=== PATIENT | female | born 1940 | race Caucasian/White ===

== ENCOUNTER → 2018-07-18 10:33 | Outpatient (CLI) | payer MEDICARE, SELFPAY ==
--- NOTE | 2018-07-18 | DI.MG.S_ITS ---
BILATERAL DIGITAL SCREENING MAMMOGRAM 3D/2D WITH CAD: 07/18/2018 CLINICAL: Routine screening. Family history of breast cancer. Comparison is made to exams dated: 05/09/2017 mammogram - [facility] and 10/13/2014 mammogram - [facility]. The tissue of both breasts is extremely dense, which lowers the sensitivity of mammography. Current study was also evaluated with a Computer Aided Detection (CAD) system. There are benign calcifications in both breasts. No significant masses, calcifications, or other findings are seen in either breast. There has been no significant interval change. IMPRESSION: There is no mammographic evidence of malignancy. A 1 year screening mammogram is recommended. This exam was interpreted at Station ID: [id number]. NOTE: For mammograms, a report in lay terms will be sent to the patient. Approximately 15% of breast malignancies will not be visualized mammographically. In the management of a palpable breast mass, a negative mammogram must not discourage biopsy of a clinically suspicious lesion. Electronically Signed By: Wayne [email or web address]:07/18/2018 21:42:01 letter sent: Normal Exam ACR BI-RADS Category 2: Benign Finding(s) 3342F
== END ==
PROVIDERS: Family Provider Internal Medicine; PCP Internal Medicine; Visit Provider Internal Medicine
DX: Z12.31 Encounter for screening mammogram for malignant neoplasm of breast (principal); Z80.3 Family history of malignant neoplasm of breast
CPT/HCPCS: 77063; 77067

== ENCOUNTER 2018-08-09 16:41 | Emergency (ER) | payer MEDICARE, SELFPAY ==
[2018-08-09 16:48] VITALS: BP 150/99; PULSE 83; RESP 20; TEMP 36.6; O2SAT 96; BMI 20.2
--- NOTE | 2018-08-09 17:02 | PC.NURSE ---
pt experienced a feeling of air in chest at approx 1430. Pts sx have subsided upon arrival to ED. Pts sx lasted only 10 minutes.
--- NOTE | 2018-08-09 17:05 | ED.SOB ---
HPI - SOB/Dyspnea <TIFFANIE Foy - Last Filed: 08/09/18 22:30> General Chief Complaint: Shortness of Breath/Dyspnea Stated Complaint: SOB Time Seen by Provider: 08/09/18 17:05 Source: patient Mode of arrival: ambulatory Limitations: no limitations History of Present Illness 78-year-old female with history of anxiety depression that is a nonsmoker for complaint of shortness of breath that lasted for approximately 8-10 minutes earlier today. She states that she it caused pain and a sensation of shortness of breath when she was trying to take a deep breath for this short period. She denies any nausea vomiting. No diaphoresis. She denies any stressors or relievers of her symptoms. She states the symptoms have really resolved. She no longer has any chest pain. No shortness of breath at this time. She is no acute distress she is able speak full sentences. She denies any other c if concerns or complaints at this timeframe. Related Data Previous Rx's Medication Instructions Recorded ciprofloxacin HCl [Cipro] 500 mg PO BID 3 Days #0 tab 04/16/17 Allergies Allergy/AdvReac Type Severity Reaction Status Date / Time Sulfa (Sulfonamide Allergy Unknown RASH Unverified 10/24/17 12:33 Antibiotics) [SULFA (SULFONAMIDE ANTIBIOTICS)] Review of Systems <TIFFANIE Foy - Last Filed: 08/09/18 22:30> Constitutional Denies chills, Denies fatigue, Denies fever(s), Denies lethargy and Denies weakness Eyes Denies change in vision, Denies eye discharge, Denies irritation and Denies loss of vision ENT Ears, Nose, Mouth, and Throat: Denies change in voice, Denies neck pain, Denies sore throat and Denies throat swelling Cardiovascular Reports chest pain and Reports dyspnea Respiratory Reports dyspnea and Denies wheezing Gastrointestinal Gastrointestinal: Denies abdominal pain, Denies change in bowel habits, Denies diarrhea, Denies nausea and Denies vomiting Genitourinary Denies hematuria, Denies flank pain, Denies urinary incontinence and Denies urinary urgency Musculoskeletal Denies neck pain Integumentary/Breasts Denies pruritus, Denies erythema, Denies rash and Denies wounds Neurologic Denies confusion, Denies loss of vision and Denies weakness Psychiatric Denies anxiety, Denies confusion, Denies depression, Denies homicidal ideation and Denies suicidal ideation Endocrine Denies fatigue and Denies flushing Hematologic/Lymphatic Denies easy bruising Allergic/Immunologic Denies urticaria, Denies throat swelling and Denies wheezing Exam <TIFFANIE Foy - Last Filed: 08/09/18 22:30> Initial Vital Signs Initial Vital Signs: Vital Signs Temperature 97.9 F 08/09/18 16:48 Pulse Rate 83 08/09/18 16:48 Respiratory Rate 20 08/09/18 16:48 Blood Pressure 150/99 H 08/09/18 16:48 Pulse Oximetry 96 08/09/18 16:48 Const General: cooperative and well developed Nutritional Appearance: well nourished Orientation: alert, awake, oriented x3 and not confused HENIN Mouth: oral mucosae normal and mucous membranes abnormal Eyes Conjunctivae: conjunctivae normal Sclera: sclerae normal Pupils: PERRL EOM: EOM intact bilaterally Chest Chest: normal inspection of the chest Resp Effort & Inspection: normal respiratory effort, able to speak in complete sentences, no respiratory distress and no use of accessory muscles Auscultation: clear to auscultation bilaterally, no rales, no rhonchi and no wheezes Cardio Rate: regular rate Rhythm: regular rhythm Heart Sounds: no click, no gallops, no murmurs and no rubs Pulses: normal peripheral pulses Skin General: no rashes or lesions noted, No jaundice and No petechiae Neuro General: alert, oriented x3, gait normal and no focal motor deficits Speech: speech normal <Amy Alvarez DO - Last Filed: 08/09/18 23:55> Initial Vital Signs Initial Vital Signs: Vital Signs Temperature 97.9 F 08/09/18 16:48 Pulse Rate 83 08/09/18 16:48 Respiratory Rate 20 08/09/18 16:48 Blood Pressure 150/99 H 08/09/18 16:48 Pulse Oximetry 96 08/09/18 16:48 Scores <TIFFANIE Foy - Last Filed: 08/09/18 22:30> HEART Score Heart Score history: Slightly Suspicious Heart Score EKG: Normal Heart Score Age: > or = 65 years old Heart Score risk factors: 1-2 risk factors Heart Score troponin: < or = to normal limit Heart Score Total: 3 Course <TIFFANIE Foy Last Filed: 08/09/18 22:30> Orders Ordered: ED Orders 08/09/18 17:16 CT angio chest PE protocol Stat 08/09/18 17:30 Complete Blood Count AUTO DIFF Stat Comprehensive Metabolic Panel Stat Troponin & CK Cardiac Panel Stat 08/09/18 19:42 Troponin I Stat Vital Signs - 8 hr 08/09/18 16:48 08/09/18 17:10 08/09/18 18:30 Temperature 97.9 F Pulse Rate 83 79 73 Respiratory Rate 20 13 15 Blood Pressure 150/99 H Blood Pressure [Left Arm] 177/101 H 136/80 Pulse Oximetry 96 100 97 08/09/18 19:30 08/09/18 20:48 Temperature Pulse Rate 79 60 Respiratory Rate 8 L Blood Pressure 143/81 H Blood Pressure [Left Arm] 143/81 H Pulse Oximetry 95 99 <Amy Alvarez DO - Last Filed: 08/09/18 23:55> Orders Ordered: ED Orders 08/09/18 17:16 CT angio chest PE protocol Stat 08/09/18 17:30 Complete Blood Count AUTO DIFF Stat Comprehensive Metabolic Panel Stat Troponin & CK Cardiac Panel Stat 08/09/18 19:42 Troponin I Stat Vital Signs - 8 hr 08/09/18 16:48 08/09/18 17:10 08/09/18 18:30 Temperature 97.9 F Pulse Rate 83 79 73 Respiratory Rate 20 13 15 Blood Pressure 150/99 H Blood Pressure [Left Arm] 177/101 H 136/80 Pulse Oximetry 96 100 97 08/09/18 19:30 08/09/18 20:48 Temperature Pulse Rate 79 60 Respiratory Rate 8 L Blood Pressure 143/81 H Blood Pressure [Left Arm] 143/81 H Pulse Oximetry 95 99 MDM - SOB/Dyspnea <TIFFANIE Foy - Last Filed: 08/09/18 22:30> Lab Data Result diagrams: 08/09/18 17:30 08/09/18 17:30 Lab Results 08/09/18 08/09/18 08/09/18 Range/Units 17:30 17:30 19:42 WBC 5.6 (4.5-11.0) X10^3/uL RBC 3.60 L (4.0-5.2) X10^6/uL Hgb 11.7 L (12.0-16.0) g/dL Hct 35.0 L (36-46) % MCV 97.3 (80-100) fL MCH 32.5 (26-34) PG MCHC 33.4 (30-36) % RDW 12.8 (11.6-14.8) % Plt Count 228 (150-400) X10^3/uL Neut % (Auto) 60.7 (50-75) % Lymph % (Auto) 26.6 (25-40) % Charles % (Auto) 10.1 (3-14) % Eos % (Auto) 1.6 L (2-4) % Baso % (Auto) 1.0 (0-2) % Neut # (Auto) 3400 (4108-7701) /uL Lymph # (Auto) 1500 (5340-9117) /uL Charles # (Auto) 600 (0-900) /uL Eos # (Auto) 100 (0-450) /uL Baso # (Auto) 100 (0-100) /uL Sodium 137 (137-145) mmol/L Potassium 3.4 (3.4-5.1) mmol/L Chloride 96 L (98-107) mmol/L Carbon Dioxide 33 H (22-32) mmol/L BUN 21 H (7-17) mg/dL Creatinine 1.00 (0.52-1.04) mg/dL Estimated GFR 53.3 L (>60) mL/min BUN/Creatinine Ratio 21.0 (6-22) Glucose 100 (80-110) mg/dL Calcium 9.4 (8.4-10.2) mg/dL Total Bilirubin 0.7 (0.2-1.3) mg/dL AST 29 (14-36) IU/L ALT 17 (9-52) IU/L Alkaline Phosphatase 47 (38-126) U/L Total Creatine Kinase 66 (30-135) U/L CK-MB (CK-2) TNP CK-MB (CK-2) Rel Index TNP Troponin I 0.012 0.015 (0.01-0.034) ng/mL Total Protein 7.8 (6.3-8.2) g/dL Albumin 4.4 (3.5-5.0) g/dL Globulin 3.4 (1.7-4.1) g/dL Albumin/Globulin Ratio 1.3 (1.0-2.8) Imaging Data CT scan - chest: Radiologist's impression: [address] [place] [id number] Scan Report Signed Patient: Donna Alves BMR#: [id number] : 8Acct:[id number] Age/Sex: 78 / FDate of Service: 08/09/18 Loc: ED Accession Number: [id number] Procedure: CT angio chest PE protocol Ordering Provider: Desmond Garcia PROCEDURE: CT ANGIO CHEST PE PROTOCOL INDICATIONS: Shortness of breath and chest pain earlier today TECHNIQUE: After the administration of intravenous contrast, 2 mm thick sections acquired from the pulmonary apices to the posterior costophrenic angles. 3-dimensional maximum intensity projection (MIP) coronal and sagittal reformats were then acquired through the thorax. For radiation dose reduction, the following was used: automated exposure control, adjustment of mA and/or kV according to patient size. COMPARISON: None. FINDINGS: Image quality: Excellent. Pulmonary arteries: Pulmonary arteries are normal in size, and demonstrate no intraluminal filling defects to suggest central pulmonary embolism. Lungs and pleura: There is a 4 mm in the right middle lobe. No pleural effusions or pneumothorax. Central and peripheral airways are patent. There is a small diaphragmatic hernia in the posterior left hemidiaphragm. Mediastinum: Heart size is normal, without pericardial effusion. No mediastinal or hilar adenopathy. Mild ectasia of the ascending thoracic aorta measuring up to 4.0 cm. The descending thoracic aorta is tortuous. Thoracic aorta demonstrates normal enhancement. Esophagus is dilated and filled with fluid. Bones and chest wall: There is scoliosis and severe degenerative changes in thoracic spine. There is spinal fusion in lumbar spine. No suspicious bony lesions. Ribs and thoracic spine appear intact throughout. Thyroid gland is normal. No axillary or supraclavicular adenopathy. Abdomen: Visualized upper abdominal solid organs appear normal in the early arterial phase of enhancement. IMPRESSION: 1. No evidence for pulmonary embolism. 2. Distended esophagus filled with fluid. The gastroesophageal junction appears thickened. Recommend upper endoscopy for further evaluation. 3. Left hemidiaphragmatic hernia. 4. Scoliosis with degenerative and post surgical changes. 5. A 4 mm right middle lobe nodule. Please see enclosed followup recommendation. Fleischner Society criteria for SOLID lung nodule followup. Nodule size (mm)Low-risk patientHigh-risk patient?4No follow-up neededFollow-up at 12 mo; if no change, no further follow-up>[id number] CT at 12 mo; if no change, no further follow-up needed.Initial follow-up CT at 6-12 mo, then 18-24 mo if no change. >6-8Initial follow-up CT at 6-12 mo, then 18-24 mo if no change. Initial follow-up CT at 3-6 mo, then 9-12 mo and 24 mo if no change. >8Follow-up CT at 3, 9, 24 mo. Or PET and/or biopsy.Same as for low-risk pts. Dictated by: Harsha Barbosa M.D. on 08/09/2018 at 19:19 Approved by: Harsha Barbosa M.D. on 08/09/2018 at 19:31 ECG Data Interpretation: EKG shows normal sinus rhythm no ST elevation or depression. No ectopy. Ventricular rate is 75. Pr interval of 198. QRS duration is 77. QTC of 387. MDM Narrative Medical decision making narrative: EKG shows sinus rhythm with no ST elevation or depression. No ectopy. Two sets of cardiac enzymes were obtained were unremarkable. CBC and Chem panel was obtained was unremarkable. PE protocol CT of the chest was obtained and was negative for PE. Incidental finding of a distended esophagus is also filled with fluid is seen. Will have her follow up with primary care provider for referral for endoscopy. Differential between whether not esophageal findings/spasm or anxiety caused her symptoms. Follow up primary care provider next few days for re-evaluation. For any worsening symptoms return to the emergency room. <Amy Alvarez, DO - Last Filed: 08/09/18 23:55> Lab Data Lab Results 08/09/18 08/09/18 08/09/18 Range/Units 17:30 17:30 19:42 WBC 5.6 (4.5-11.0) X10^3/uL RBC 3.60 L (4.0-5.2) X10^6/uL Hgb 11.7 L (12.0-16.0) g/dL Hct 35.0 L (36-46) % MCV 97.3 (80-100) fL MCH 32.5 (26-34) PG MCHC 33.4 (30-36) % RDW 12.8 (11.6-14.8) % Plt Count 228 (150-400) X10^3/uL Neut % (Auto) 60.7 (50-75) % Lymph % (Auto) 26.6 (25-40) % Charles % (Auto) 10.1 (3-14) % Eos % (Auto) 1.6 L (2-4) % Baso % (Auto) 1.0 (0-2) % Neut # (Auto) 3400 (4909-2382) /uL Lymph # (Auto) 1500 (4508-4234) /uL Charles # (Auto) 600 (0-900) /uL Eos # (Auto) 100 (0-450) /uL Baso # (Auto) 100 (0-100) /uL Sodium 137 (137-145) mmol/L Potassium 3.4 (3.4-5.1) mmol/L Chloride 96 L (98-107) mmol/L Carbon Dioxide 33 H (22-32) mmol/L BUN 21 H (7-17) mg/dL Creatinine 1.00 (0.52-1.04) mg/dL Estimated GFR 53.3 L (>60) mL/min BUN/Creatinine Ratio 21.0 (6-22) Glucose 100 (80-110) mg/dL Calcium 9.4 (8.4-10.2) mg/dL Total Bilirubin 0.7 (0.2-1.3) mg/dL AST 29 (14-36) IU/L ALT 17 (9-52) IU/L Alkaline Phosphatase 47 (38-126) U/L Total Creatine Kinase 66 (30-135) U/L CK-MB (CK-2) TNP CK-MB (CK-2) Rel Index TNP Troponin I 0.012 0.015 (0.01-0.034) ng/mL Total Protein 7.8 (6.3-8.2) g/dL Albumin 4.4 (3.5-5.0) g/dL Globulin 3.4 (1.7-4.1) g/dL Albumin/Globulin Ratio 1.3 (1.0-2.8) Discharge Plan Departure Patient Disposition: Home Clinical Impression: Chest pain Discharge Date/Time: 08/09/18 20:49 Interventions: ED Discharge Assessment Last Done: 08/09/18 20:48 Instructions: DI for Atypical Chest Pain Activity Restrictions/Additional Instructions: EKG today was unremarkable. Laboratory results were normal. CT of the chest was obtained and shows some distention to this often gets and some fluid. Also there is a a 4 mm nodule seen to the right lung. Recommend follow up with primary care for supervision and repeat CT and approximately 12 months for further evaluation. Recommend a follow-up with primary care for the next few days for re-evaluation and referral for endoscopy for further evaluation of the esophagus. No other acute findings are found. Prescriptions: No Action ciprofloxacin HCl [Cipro] 500 MG tablet 500 mg PO BID 3 Days Qty: 0 RF: 0 Referrals: Abilio Marie MD [Primary Care Provider] - <Amy Alvarez DO - Last Filed: 08/09/18 23:55> Cosign ED Attending Cosignature Attestation: I was immediately available in the department for consultation, discussed patient needs close follow up for EGD and further evaluation. This documentation has been reviewed and I agree with assessment and plan. Supervised by Amy Alvarez DO
[2018-08-09 17:10] VITALS: BP 177/101; PULSE 79; RESP 13; O2SAT 100
--- NOTE | 2018-08-09 17:16 | DI.CT.S_ITS ---
PROCEDURE: CT ANGIO CHEST PE PROTOCOL INDICATIONS: Shortness of breath and chest pain earlier today TECHNIQUE: After the administration of intravenous contrast, 2 mm thick sections acquired from the pulmonary apices to the posterior costophrenic angles. 3-dimensional maximum intensity projection (MIP) coronal and sagittal reformats were then acquired through the thorax. For radiation dose reduction, the following was used: automated exposure control, adjustment of mA and/or kV according to patient size. COMPARISON: None. FINDINGS: Image quality: Excellent. Pulmonary arteries: Pulmonary arteries are normal in size, and demonstrate no intraluminal filling defects to suggest central pulmonary embolism. Lungs and pleura: There is a 4 mm in the right middle lobe. No pleural effusions or pneumothorax. Central and peripheral airways are patent. There is a small diaphragmatic hernia in the posterior left hemidiaphragm. Mediastinum: Heart size is normal, without pericardial effusion. No mediastinal or hilar adenopathy. Mild ectasia of the ascending thoracic aorta measuring up to 4.0 cm. The descending thoracic aorta is tortuous. Thoracic aorta demonstrates normal enhancement. Esophagus is dilated and filled with fluid. Bones and chest wall: There is scoliosis and severe degenerative changes in thoracic spine. There is spinal fusion in lumbar spine. No suspicious bony lesions. Ribs and thoracic spine appear intact throughout. Thyroid gland is normal. No axillary or supraclavicular adenopathy. Abdomen: Visualized upper abdominal solid organs appear normal in the early arterial phase of enhancement. IMPRESSION: 1. No evidence for pulmonary embolism. 2. Distended esophagus filled with fluid. The gastroesophageal junction appears thickened. Recommend upper endoscopy for further evaluation. 3. Left hemidiaphragmatic hernia. 4. Scoliosis with degenerative and post surgical changes. 5. A 4 mm right middle lobe nodule. Please see enclosed followup recommendation. Fleischner Society criteria for SOLID lung nodule followup. Nodule size (mm)Low-risk patientHigh-risk patient?4No follow-up neededFollow-up at 12 mo; if no change, no further follow-up>[id number] CT at 12 mo; if no change, no further follow-up needed.Initial follow-up CT at 6-12 mo, then 18-24 mo if no change. >6-8Initial follow-up CT at 6-12 mo, then 18-24 mo if no change. Initial follow-up CT at 3-6 mo, then 9-12 mo and 24 mo if no change. >8Follow-up CT at 3, 9, 24 mo. Or PET and/or biopsy.Same as for low-risk pts. Dictated by: Harsha Barbosa M.D. on 08/09/2018 at 19:19 Approved by: Harsha Barbosa M.D. on 08/09/2018 at 19:31
[2018-08-09 17:44] LABS: Add Manual Diff / Slide Review NO; Basophils Absolute Auto 100 /uL (0-100); Eosinophils Absolute Auto 100 /uL (0-450); Eosinophils Percent Auto 1.6 % (2-4); Hemoglobin 11.7 g/dL (12.0-16.0); Lymphocytes Absolute Auto 1500 /uL (1100-4500); Lymphocytes Percent Auto 26.6 % (25-40); Mean Corpuscular HGB Conc 33.4 % (30-36); Mean Corpuscular Hemoglobin 32.5 PG (26-34); Mean Corpuscular Volume 97.3 fL (80-100); Monocytes Absolute Auto 600 /uL (0-900); Monocytes Percent Auto 10.1 % (3-14); Neutrophils Absolute Auto 3400 /uL (1500-7000); Neutrophils Percent Auto 60.7 % (50-75); Platelet Count 228 X10^3/uL (150-400); Red Cell Distribution Width 12.8 % (11.6-14.8); White Blood Cell Count 5.6 X10^3/uL (4.5-11.0)
[2018-08-09 17:59] LABS: Alanine Aminotransferase 17 IU/L (9-52); Albumin 4.4 g/dL (3.5-5.0); Albumin Globulin Ratio 1.3 (1.0-2.8); Alkaline Phosphatase 47 U/L (38-126); Aspartate Aminotransferase 29 IU/L (14-36); Bilirubin Total 0.7 mg/dL (0.2-1.3); Blood Urea Nitrogen 21 mg/dL (7-17); Calcium 9.4 mg/dL (8.4-10.2); Carbon Dioxide 33 mmol/L (22-32); Chloride 96 mmol/L (98-107); Creatine Kinase 66 U/L (30-135); Estimated Glomerular Filt Rate 53.3 mL/min (>60); Globulin 3.4 g/dL (1.7-4.1); Glucose 100 mg/dL (80-110); HEMOLYSIS < 15 (0-50); Potassium 3.4 mmol/L (3.4-5.1); Sodium 137 mmol/L (137-145); Total Protein 7.8 g/dL (6.3-8.2)
[2018-08-09 18:11] LABS: Troponin I 0.012 ng/mL (0.01-0.034)
[2018-08-09 18:30] VITALS: BP 136/80; PULSE 73; RESP 15; O2SAT 97
[2018-08-09 19:30] VITALS: BP 143/81; PULSE 79; RESP 8; O2SAT 95
[2018-08-09 20:09] LABS: Troponin I 0.015 ng/mL (0.01-0.034)
--- NOTE | 2018-08-09 20:28 | ED_ITS ---
HPI - SOB/Dyspnea <TIFFANIE Foy - Last Filed: 08/09/18 22:30> General Chief Complaint: Shortness of Breath/Dyspnea Stated Complaint: SOB Time Seen by Provider: 08/09/18 17:05 Source: patient Mode of arrival: ambulatory Limitations: no limitations History of Present Illness 78-year-old female with history of anxiety depression that is a nonsmoker for complaint of shortness of breath that lasted for approximately 8-10 minutes earlier today. She states that she it caused pain and a sensation of shortness of breath when she was trying to take a deep breath for this short period. She denies any nausea vomiting. No diaphoresis. She denies any stressors or relievers of her symptoms. She states the symptoms have really resolved. She no longer has any chest pain. No shortness of breath at this time. She is no acute distress she is able speak full sentences. She denies any other c if concerns or complaints at this timeframe. Related Data Previous Rx's Medication Instructions Recorded ciprofloxacin HCl [Cipro] 500 mg PO BID 3 Days #0 tab 04/16/17 Allergies Allergy/AdvReac Type Severity Reaction Status Date / Time Sulfa (Sulfonamide Allergy Unknown RASH Unverified 10/24/17 12:33 Antibiotics) [SULFA (SULFONAMIDE ANTIBIOTICS)] Review of Systems <TIFFANIE Foy - Last Filed: 08/09/18 22:30> Constitutional Denies chills, Denies fatigue, Denies fever(s), Denies lethargy and Denies weakness Eyes Denies change in vision, Denies eye discharge, Denies irritation and Denies loss of vision ENT Ears, Nose, Mouth, and Throat: Denies change in voice, Denies neck pain, Denies sore throat and Denies throat swelling Cardiovascular Reports chest pain and Reports dyspnea Respiratory Reports dyspnea and Denies wheezing Gastrointestinal Gastrointestinal: Denies abdominal pain, Denies change in bowel habits, Denies diarrhea, Denies nausea and Denies vomiting Genitourinary Denies hematuria, Denies flank pain, Denies urinary incontinence and Denies urinary urgency Musculoskeletal Denies neck pain Integumentary/Breasts Denies pruritus, Denies erythema, Denies rash and Denies wounds Neurologic Denies confusion, Denies loss of vision and Denies weakness Psychiatric Denies anxiety, Denies confusion, Denies depression, Denies homicidal ideation and Denies suicidal ideation Endocrine Denies fatigue and Denies flushing Hematologic/Lymphatic Denies easy bruising Allergic/Immunologic Denies urticaria, Denies throat swelling and Denies wheezing Exam <TIFFANIE Foy - Last Filed: 08/09/18 22:30> Initial Vital Signs Initial Vital Signs: Vital Signs Temperature 97.9 F 08/09/18 16:48 Pulse Rate 83 08/09/18 16:48 Respiratory Rate 20 08/09/18 16:48 Blood Pressure 150/99 H 08/09/18 16:48 Pulse Oximetry 96 08/09/18 16:48 Const General: cooperative and well developed Nutritional Appearance: well nourished Orientation: alert, awake, oriented x3 and not confused HENTN Mouth: oral mucosae normal and mucous membranes abnormal Eyes Conjunctivae: conjunctivae normal Sclera: sclerae normal Pupils: PERRL EOM: EOM intact bilaterally Chest Chest: normal inspection of the chest Resp Effort & Inspection: normal respiratory effort, able to speak in complete sentences, no respiratory distress and no use of accessory muscles Auscultation: clear to auscultation bilaterally, no rales, no rhonchi and no wheezes Cardio Rate: regular rate Rhythm: regular rhythm Heart Sounds: no click, no gallops, no murmurs and no rubs Pulses: normal peripheral pulses Skin General: no rashes or lesions noted, No jaundice and No petechiae Neuro General: alert, oriented x3, gait normal and no focal motor deficits Speech: speech normal <Amy Alvarez DO - Last Filed: 08/09/18 23:55> Initial Vital Signs Initial Vital Signs: Vital Signs Temperature 97.9 F 08/09/18 16:48 Pulse Rate 83 08/09/18 16:48 Respiratory Rate 20 08/09/18 16:48 Blood Pressure 150/99 H 08/09/18 16:48 Pulse Oximetry 96 08/09/18 16:48 Scores <TIFFANIE Foy - Last Filed: 08/09/18 22:30> HEART Score Heart Score history: Slightly Suspicious Heart Score EKG: Normal Heart Score Age: > or = 65 years old Heart Score risk factors: 1-2 risk factors Heart Score troponin: < or = to normal limit Heart Score Total: 3 Course <TIFFANIE Foy Last Filed: 08/09/18 22:30> Orders Ordered: ED Orders 08/09/18 17:16 CT angio chest PE protocol Stat 08/09/18 17:30 Complete Blood Count AUTO DIFF Stat Comprehensive Metabolic Panel Stat Troponin & CK Cardiac Panel Stat 08/09/18 19:42 Troponin I Stat Vital Signs - 8 hr 08/09/18 16:48 08/09/18 17:10 08/09/18 18:30 Temperature 97.9 F Pulse Rate 83 79 73 Respiratory Rate 20 13 15 Blood Pressure 150/99 H Blood Pressure [Left Arm] 177/101 H 136/80 Pulse Oximetry 96 100 97 08/09/18 19:30 08/09/18 20:48 Temperature Pulse Rate 79 60 Respiratory Rate 8 L Blood Pressure 143/81 H Blood Pressure [Left Arm] 143/81 H Pulse Oximetry 95 99 <Amy Alvarez DO - Last Filed: 08/09/18 23:55> Orders Ordered: ED Orders 08/09/18 17:16 CT angio chest PE protocol Stat 08/09/18 17:30 Complete Blood Count AUTO DIFF Stat Comprehensive Metabolic Panel Stat Troponin & CK Cardiac Panel Stat 08/09/18 19:42 Troponin I Stat Vital Signs - 8 hr 08/09/18 16:48 08/09/18 17:10 08/09/18 18:30 Temperature 97.9 F Pulse Rate 83 79 73 Respiratory Rate 20 13 15 Blood Pressure 150/99 H Blood Pressure [Left Arm] 177/101 H 136/80 Pulse Oximetry 96 100 97 08/09/18 19:30 08/09/18 20:48 Temperature Pulse Rate 79 60 Respiratory Rate 8 L Blood Pressure 143/81 H Blood Pressure [Left Arm] 143/81 H Pulse Oximetry 95 99 MDM - SOB/Dyspnea <TIFFANIE Foy - Last Filed: 08/09/18 22:30> Lab Data Result diagrams: 08/09/18 17:30 08/09/18 17:30 Lab Results 08/09/18 08/09/18 08/09/18 Range/Units 17:30 17:30 19:42 WBC 5.6 (4.5-11.0) X10^3/uL RBC 3.60 L (4.0-5.2) X10^6/uL Hgb 11.7 L (12.0-16.0) g/dL Hct 35.0 L (36-46) % MCV 97.3 (80-100) fL MCH 32.5 (26-34) PG MCHC 33.4 (30-36) % RDW 12.8 (11.6-14.8) % Plt Count 228 (150-400) X10^3/uL Neut % (Auto) 60.7 (50-75) % Lymph % (Auto) 26.6 (25-40) % Izard % (Auto) 10.1 (3-14) % Eos % (Auto) 1.6 L (2-4) % Baso % (Auto) 1.0 (0-2) % Neut # (Auto) 3400 (2934-2664) /uL Lymph # (Auto) 1500 (4100-8091) /uL Izard # (Auto) 600 (0-900) /uL Eos # (Auto) 100 (0-450) /uL Baso # (Auto) 100 (0-100) /uL Sodium 137 (137-145) mmol/L Potassium 3.4 (3.4-5.1) mmol/L Chloride 96 L (98-107) mmol/L Carbon Dioxide 33 H (22-32) mmol/L BUN 21 H (7-17) mg/dL Creatinine 1.00 (0.52-1.04) mg/dL Estimated GFR 53.3 L (>60) mL/min BUN/Creatinine Ratio 21.0 (6-22) Glucose 100 (80-110) mg/dL Calcium 9.4 (8.4-10.2) mg/dL Total Bilirubin 0.7 (0.2-1.3) mg/dL AST 29 (14-36) IU/L ALT 17 (9-52) IU/L Alkaline Phosphatase 47 (38-126) U/L Total Creatine Kinase 66 (30-135) U/L CK-MB (CK-2) TNP CK-MB (CK-2) Rel Index TNP Troponin I 0.012 0.015 (0.01-0.034) ng/mL Total Protein 7.8 (6.3-8.2) g/dL Albumin 4.4 (3.5-5.0) g/dL Globulin 3.4 (1.7-4.1) g/dL Albumin/Globulin Ratio 1.3 (1.0-2.8) Imaging Data CT scan - chest: Radiologist's impression: [address] [place] [id number] Scan Report Signed Patient: Donna Alves BMR#: [id number] : 8Acct:[id number] Age/Sex: 78 / FDate of Service: 08/09/18 Loc: ED Accession Number: [id number] Procedure: CT angio chest PE protocol Ordering Provider: Desmond Garcia PROCEDURE: CT ANGIO CHEST PE PROTOCOL INDICATIONS: Shortness of breath and chest pain earlier today TECHNIQUE: After the administration of intravenous contrast, 2 mm thick sections acquired from the pulmonary apices to the posterior costophrenic angles. 3-dimensional maximum intensity projection (MIP) coronal and sagittal reformats were then acquired through the thorax. For radiation dose reduction, the following was used: automated exposure control, adjustment of mA and/or kV according to patient size. COMPARISON: None. FINDINGS: Image quality: Excellent. Pulmonary arteries: Pulmonary arteries are normal in size, and demonstrate no intraluminal filling defects to suggest central pulmonary embolism. Lungs and pleura: There is a 4 mm in the right middle lobe. No pleural effusions or pneumothorax. Central and peripheral airways are patent. There is a small diaphragmatic hernia in the posterior left hemidiaphragm. Mediastinum: Heart size is normal, without pericardial effusion. No mediastinal or hilar adenopathy. Mild ectasia of the ascending thoracic aorta measuring up to 4.0 cm. The descending thoracic aorta is tortuous. Thoracic aorta demonstrates normal enhancement. Esophagus is dilated and filled with fluid. Bones and chest wall: There is scoliosis and severe degenerative changes in thoracic spine. There is spinal fusion in lumbar spine. No suspicious bony lesions. Ribs and thoracic spine appear intact throughout. Thyroid gland is normal. No axillary or supraclavicular adenopathy. Abdomen: Visualized upper abdominal solid organs appear normal in the early arterial phase of enhancement. IMPRESSION: 1. No evidence for pulmonary embolism. 2. Distended esophagus filled with fluid. The gastroesophageal junction appears thickened. Recommend upper endoscopy for further evaluation. 3. Left hemidiaphragmatic hernia. 4. Scoliosis with degenerative and post surgical changes. 5. A 4 mm right middle lobe nodule. Please see enclosed followup recommendation. Fleischner Society criteria for SOLID lung nodule followup. Nodule size (mm)Low-risk patientHigh-risk patient?4No follow-up neededFollow-up at 12 mo; if no change, no further follow-up>[id number] CT at 12 mo; if no change, no further follow-up needed.Initial follow-up CT at 6-12 mo, then 18-24 mo if no change. >6-8Initial follow-up CT at 6-12 mo, then 18-24 mo if no change. Initial follow- up CT at 3-6 mo, then 9-12 mo and 24 mo if no change. >8Follow-up CT at 3, 9, 24 mo. Or PET and/or biopsy.Same as for low-risk pts. Dictated by: Harsha Barbosa M.D. on 08/09/2018 at 19:19 Approved by: Harsha Barbosa M.D. on 08/09/2018 at 19:31 ECG Data Interpretation: EKG shows normal sinus rhythm no ST elevation or depression. No ectopy. Ventricular rate is 75. Pr interval of 198. QRS duration is 77. QTC of 387. MDM Narrative Medical decision making narrative: EKG shows sinus rhythm with no ST elevation or depression. No ectopy. Two sets of cardiac enzymes were obtained were unremarkable. CBC and Chem panel was obtained was unremarkable. PE protocol CT of the chest was obtained and was negative for PE. Incidental finding of a distended esophagus is also filled with fluid is seen. Will have her follow up with primary care provider for referral for endoscopy. Differential between whether not esophageal findings/spasm or anxiety caused her symptoms. Follow up primary care provider next few days for re-evaluation. For any worsening symptoms return to the emergency room. <Amy Alvarez, DO - Last Filed: 08/09/18 23:55> Lab Data Lab Results 08/09/18 08/09/18 08/09/18 Range/Units 17:30 17:30 19:42 WBC 5.6 (4.5-11.0) X10^3/uL RBC 3.60 L (4.0-5.2) X10^6/uL Hgb 11.7 L (12.0-16.0) g/dL Hct 35.0 L (36-46) % MCV 97.3 (80-100) fL MCH 32.5 (26-34) PG MCHC 33.4 (30-36) % RDW 12.8 (11.6-14.8) % Plt Count 228 (150-400) X10^3/uL Neut % (Auto) 60.7 (50-75) % Lymph % (Auto) 26.6 (25-40) % Izard % (Auto) 10.1 (3-14) % Eos % (Auto) 1.6 L (2-4) % Baso % (Auto) 1.0 (0-2) % Neut # (Auto) 3400 (2920-1049) /uL Lymph # (Auto) 1500 (5655-4461) /uL Izard # (Auto) 600 (0-900) /uL Eos # (Auto) 100 (0-450) /uL Baso # (Auto) 100 (0-100) /uL Sodium 137 (137-145) mmol/L Potassium 3.4 (3.4-5.1) mmol/L Chloride 96 L (98-107) mmol/L Carbon Dioxide 33 H (22-32) mmol/L BUN 21 H (7-17) mg/dL Creatinine 1.00 (0.52-1.04) mg/dL Estimated GFR 53.3 L (>60) mL/min BUN/Creatinine Ratio 21.0 (6-22) Glucose 100 (80-110) mg/dL Calcium 9.4 (8.4-10.2) mg/dL Total Bilirubin 0.7 (0.2-1.3) mg/dL AST 29 (14-36) IU/L ALT 17 (9-52) IU/L Alkaline Phosphatase 47 (38-126) U/L Total Creatine Kinase 66 (30-135) U/L CK-MB (CK-2) TNP CK-MB (CK-2) Rel Index TNP Troponin I 0.012 0.015 (0.01-0.034) ng/mL Total Protein 7.8 (6.3-8.2) g/dL Albumin 4.4 (3.5-5.0) g/dL Globulin 3.4 (1.7-4.1) g/dL Albumin/Globulin Ratio 1.3 (1.0-2.8) Discharge Plan Departure Patient Disposition: Home Clinical Impression: Chest pain Discharge Date/Time: 08/09/18 20:49 Interventions: ED Discharge Assessment Last Done: 08/09/18 20:48 Instructions: DI for Atypical Chest Pain Activity Restrictions/Additional Instructions: EKG today was unremarkable. Laboratory results were normal. CT of the chest was obtained and shows some distention to this often gets and some fluid. Also there is a a 4 mm nodule seen to the right lung. Recommend follow up with primary care for supervision and repeat CT and approximately 12 months for further evaluation. Recommend a follow-up with primary care for the next few days for re-evaluation and referral for endoscopy for further evaluation of the esophagus. No other acute findings are found. Prescriptions: No Action ciprofloxacin HCl [Cipro] 500 MG tablet 500 mg PO BID 3 Days Qty: 0 RF: 0 Referrals: Abilio Marie MD [Primary Care Provider] - <Amy Alvarez DO - Last Filed: 08/09/18 23:55> Cosign ED Attending Cosignature Attestation: I was immediately available in the department for consultation, discussed patient needs close follow up for EGD and further evaluation. This documentation has been reviewed and I agree with assessment and plan. Supervised by Amy Alvarez DO
[2018-08-09 20:48] VITALS: BP 143/81; PULSE 60; O2SAT 99
== END 2018-08-09 20:49 | disposition home or self-care (01) ==
PROVIDERS: Emergency Provider Nurse Practitioner Family; Family Provider Internal Medicine; PCP Internal Medicine
DX: R07.9 Chest pain, unspecified (principal)
CPT/HCPCS: 36415; 36591; 71275; 80053; 82550; 84484; 85025; 93005; 93010; 99283; 99285; Q9967

== ENCOUNTER 2018-08-21 07:08 | Day surgery (SDC) | payer MEDICARE, SELFPAY ==
[2018-08-21] VITALS (7 sets, daily range): BP systolic 106–129; BP diastolic 70–79; PULSE 72–82; RESP 12–17; TEMP 36.3–37; O2SAT 95–98; BMI 19.7
--- NOTE | 2018-08-21 | PATH_ITS ---
[facility] Accession Number: [id number] . 01 Material submitted: . GE JUNCTION BIOPSY . 02 Diagnosis: Gastroesophageal Junction, Biopsy: Squamocolumnar junctional mucosa with mild active inflammation and reactive epithelial changes. Negative for intestinal metaplasia. Negative for dysplasia and malignancy. MRV/08/22/2018 . 02 Electronically signed: . Duyen Hutson MD, Pathologist NPI- [id number] . 01 Gross description: . Received one formalin-filled container labeled with the patient's name and labeled GE junction. The specimen consists of a 0.3 cm portion of tissue, entirely submitted in one cassette. ([id number]) /FRR . 02 Pathologist provided ICD-10: R10.9 . 02 CPT . 724449 Performed at: 01 [facility] [address] [id number] MD Carl Park MD Phone: [phone] Performed at: 02 [facility] [address] [place] [id number] MD Duyen Hutson MD Phone: [phone]
--- NOTE | 2018-08-21 07:18 | PM.HP.1 ---
History of Present Illness Date Patient Seen: 08/21/18 Chief complaint: EGD 33609 Narrative: 78-year-old female with findings of GE junction thickening on CT angiogram performed 08/09/2017. Please refer to my office note 08/16/2018 for further details. There been no changes to her history or physical exam since at office visit Patient History Family & Social History Tobacco & Substance use: Smoking Status Former smoker alcohol intake frequency 0-2 drinks per day Substance Use Type does not use Meds Home Medications Medication Instructions Recorded Confirmed Type ciprofloxacin HCl [Cipro] 500 mg PO BID 3 Days #0 tab 04/16/17 Rx Allergies Allergy/AdvReac Type Severity Reaction Status Date / Time Sulfa (Sulfonamide Allergy Unknown RASH Verified 08/21/18 07:14 Antibiotics) [SULFA (SULFONAMIDE ANTIBIOTICS)] Exam Narrative Exam Narrative: General: Patient is well developed, not in apparent distress Cardiovascular: Regular rate and rhythm, no murmurs, rubs, or gallops; no evidence of edema; no palpable abdominal aortic aneurysm Gastrointestinal: Normoactive bowel sounds, soft, nontender, nondistended, no rebound tenderness, no hepatosplenomegaly, no evidence of hernia Assessment & Plan (1) Abnormal findings on imaging test: Current visit: Yes Status: Acute Assessment/Plan Narrative: 78-year-old female with GE junction thickening on CT angiogram 08/09/2018. Patient here for further evaluation by means of EGD Regarding the procedure(s), the risks and potential complications, benefits, and alternatives (including not doing the procedure) were discussed with the patient. The risks include but are not limited to bleeding, splenic injury, infection, perforation which may require surgical intervention, missed lesions, and adverse reactions to sedative medicines. After a question and answer period, the patient agreed to proceed with the procedure(s) and gives informed consent.
[2018-08-21] MEDS: SODIUM CHLORIDE 0.9% 1,000 ML 70 ML IV (07:45)
--- NOTE | 2018-08-21 08:04 | P.OP.ENDO_ITS ---
Operative Date/Time/Diagnoses Date of procedure: 08/21/18 Procedure Notes Procedure in detail: Surgeon: Brandon Alves MD Procedure: Esophagogastroduodenoscopy with biopsy Preoperative diagnosis: GE junction thickening on CT Postoperative diagnosis: Irregular Z-line status post biopsy otherwise normal EGD Medications: Conscious sedation using 2 mg IV of Midazolam and 50 mcg IV of Fentanyl Preanesthesia Assessment An H and P was performed/updated and the Px?s ASA class is 2. The procedure was discussed in detail with the patient. The potential risks and complications including infection, bleeding, missed lesions, perforation, need for surgery in case of perforation, prolonged hospital stay, and were explained. A brief question and answer period was allotted and once all questions were answered, informed consent was obtained. The patient was brought back to the procedure room and placed on standard monitoring. The patient?s vital signs were monitored continuously throughout the entire procedure. Prior to starting, a timeout was performed to confirm the patient?s identity, allergies, medications, and procedure. Procedure in detail The patient was placed in left lateral decubitus position and a bite block was inserted. The tip of the upper endoscope was placed into the mouth and advanced without difficulty under direct visualization into the esophagus. Esophagus: The Z-line was irregular and biopsies were performed. The esophagus was otherwise without any abnormality. There was no mass or inflammation seen at the GE junction Stomach: Normal Duodenum: Normal The patient tolerated the procedure well and will be brought back to the [facility] area to be discharged once criteria are met. The total physician intraservice time was 5 min. Complications There were no complications and estimated blood loss was minimal. Recommendations: Resume previous diet Continue outPx medications Follow up pathology results Office follow up as needed An emergency contact number was given to the patient for any complications related to the procedure
[2018-08-21] MEDS: MIDAZOLAM 5 MG/5 ML VIAL IV (08:11)
[2018-08-21] MEDS: fentaNYL 250 MCG/5 ML INJ IV (08:11)
--- NOTE | 2018-08-21 08:15 | P.DS_ITS ---
History of Present Illness Chief complaint: EGD [id number] Narrative: 78-year-old female with findings of GE junction thickening on CT angiogram performed 08/09/2017. Please refer to my office note 08/16/2018 for further details. There been no changes to her history or physical exam since at office visit Discharge Providers Primary care physician: Abilio Marie MD Discharge provider: Brandon Alves MD Discharge Date: 08/21/18 Exam Vital Signs (past 8 hours): - 08/21/18 07:14 Temperature 97.6 F Pulse Rate 82 Respiratory Rate 15 Pulse Oximetry 96 Oxygen Delivery Method Room Air Narrative Exam Narrative: General: Patient is well developed, not in apparent distress Cardiovascular: Regular rate and rhythm, no murmurs, rubs, or gallops; no evidence of edema; no palpable abdominal aortic aneurysm Gastrointestinal: Normoactive bowel sounds, soft, nontender, nondistended, no re bound tenderness, no hepatosplenomegaly, no evidence of hernia Discharge Plan Discharge Plan Patient Disposition: Home Discharge Med Rec/Prescriptions Prescriptions: Continued calcium carbonate [Calcium 500] 500 mg calcium (1,250 mg) Tablet 1 tab PO DAILY RF: 0 morphine 15 mg tablet extended release 15 mg PO BID RF: 0 mirtazapine 15 mg tablet 0.5 tab PO BEDTIME RF: 0 multivitamin Capsule 1 cap PO DAILY RF: 0 duloxetine 60 mg capsule,delayed release(DR/EC) PO DAILY RF: 0 Vitamin D3 Complete 1 tab PO DAILY RF: 0 Follow up/Referrals: Abilio Marie MD [Primary Care Provider] - Discharge Orders: Discharge (Order); Ordered 08/21/18 Ordered By: Brandon Alves Provider Discharge Instructions Diet: Diet as Tolerated Visit Report/Discharge Packet Stand Alone Forms: EGD Result: [facility], Surgery Discharge Discharge Data Primary Care Provider: Abilio Marie V Attending Provider: Brandon Alves
--- NOTE | 2018-08-21 08:36 | SUR.PHASEI ---
PT TOLERATING PO JUICE, NO COUGHING OR DIFFICULTY SWALLOWING.
== END 2018-08-21 08:58 | disposition home or self-care (01) ==
PROVIDERS: Family Provider Internal Medicine; PCP Internal Medicine; Visit Provider Internal Medicine Gastroenterology
PROC: 0DJ08ZZ Inspection of Upper Intestinal Tract, Via Natural or Artificial Opening Endoscopic (ICD-10-PCS; CPT 43235; principal; 2018-08-21 08:00)
DX: R93.3 Abnormal findings on diagnostic imaging of other parts of digestive tract (principal)
CPT/HCPCS: 43239; 88305; J2250; J3010

== ENCOUNTER → 2018-09-18 19:55 | Outpatient (REF) | payer MEDICARE, SELFPAY | LOC: LAB 19:55 | PROVIDERS: Family Provider Internal Medicine; PCP Internal Medicine; Visit Provider Physician Assistant | DX: L08.9 Local infection of the skin and subcutaneous tissue, unspecified (principal) | CPT/HCPCS: 87070; 87075; 87205 ==

== ENCOUNTER → 2018-09-19 18:29 | Outpatient (REF) | payer MEDICARE, SELFPAY | LOC: LAB 18:29 | PROVIDERS: Family Provider Internal Medicine; PCP Internal Medicine; Visit Provider Physician Assistant | DX: L81.4 Other melanin hyperpigmentation (principal) | CPT/HCPCS: 87255 ==

== ENCOUNTER → 2019-03-10 11:04 | Outpatient (CLI) | payer MEDICARE, SELFPAY ==
--- NOTE | 2019-03-10 | DI.RAD.S_ITS ---
PROCEDURE: XR LUMBAR SPINE 2-3V INDICATIONS: LOW BACK PAIN TECHNIQUE: 3 views of the lumbar spine were acquired. COMPARISON: [facility], CT, CT ANGIO CHEST PE PROTOCOL, 08/09/2018, 18:12. FINDINGS: Bones: 5 [id number] vertebrae are present. There is abnormal bony alignment with convex leftward scoliosis centered at the L2-3 level of the lumbosacral spine and compensatory convex right rotoscoliosis centered at the low thoracic spine. There has been prior L2-S1 transverse pedicle screw placement and vertical fixation richard placement. No vertebral body compression fractures. No suspicious bony lesions. Soft tissues: Overlying bowel gas pattern is normal. No suspicious soft tissue calcifications. IMPRESSION: Prominent scoliosis at the low thoracic spine is associated with prior additional scoliosis along the lumbosacral spine. The LS spine is levoscoliotic, the low thoracic scoliosis is dextroscoliotic, and the fixation screws and rods crossing from L2-S1 show no sign of device loosening or disruption. Dictated by: Rd White M.D. on 03/10/2019 at 13:59 Approved by: Rd White M.D. on 03/10/2019 at 14:01
[2019-03-10 12:20] LABS: Aspartate Aminotransferase 42 IU/L (14-36); BUN Creatinine Ratio 23.3 (6-22); Blood Urea Nitrogen 28 mg/dL (7-17); Calcium 9.6 mg/dL (8.4-10.2); Carbon Dioxide 35 mmol/L (22-32); Chloride 94 mmol/L (98-107); Cholesterol 166 mg/dL (140-199); Estimated Glomerular Filt Rate 43.2 mL/min (>60); Glucose 106 mg/dL (80-110); HDL Cholesterol 92 mg/dL (40-60); HEMOLYSIS < 15 (0-50); LDL Cholesterol Calculated 53 mg/dL (<100); Potassium 3.7 mmol/L (3.4-5.1); Sodium 137 mmol/L (137-145); Triglycerides 106 mg/dL (35-150)
== END ==
PROVIDERS: PCP Internal Medicine; Visit Provider Internal Medicine
DX: M54.5 Low back pain (principal); E78.2 Mixed hyperlipidemia; I10 Essential (primary) hypertension
CPT/HCPCS: 36415; 72100; 80048; 80061; 84450

== ENCOUNTER 2019-04-26 14:14 | Emergency (ER) | payer MEDICARE, SELFPAY ==
--- NOTE | 2019-04-26 14:20 | ED_ITS ---
HPI - General Adult General Chief complaint: Extremity Injury, Lower Stated complaint: left knee fall x1 day Time Seen by Provider: 04/26/19 14:16 Source: patient Mode of arrival: Wheelchair Limitations: no limitations History of Present Illness HPI narrative: 78-year-old female here for evaluation of left knee pain. States that yesterday she was walking her driveway where she sustained a fall landing on her left knee. Has had pain since then. States that she has not been able to walk because of the pain. Did not hit her head. No hip pain no ankle pain. Not on anticoagulation. Related Data Home Medications Medication Instructions Recorded Confirmed Vitamin D3 Complete 1 tab PO DAILY 08/21/18 08/21/18 calcium carbonate [Calcium 500] 1 tab PO DAILY 08/21/18 08/21/18 duloxetine PO DAILY 08/21/18 mirtazapine 0.5 tab PO BEDTIME 08/21/18 08/21/18 morphine 15 mg PO BID 08/21/18 08/21/18 multivitamin 1 cap PO DAILY 08/21/18 08/21/18 Allergies Allergy/AdvReac Type Severity Reaction Status Date / Time Sulfa (Sulfonamide Allergy Unknown RASH Verified 04/26/19 14:26 Antibiotics) [SULFA (SULFONAMIDE ANTIBIOTICS)] Review of Systems Constitutional Constitutional: Denies fever(s) and Denies headache(s) ENT Ears, Nose, Mouth, and Throat: Denies headache(s) and Denies disequilibrium Cardiovascular Cardiovascular: Denies chest pain and Denies dyspnea Respiratory Respiratory: Denies dyspnea Gastrointestinal Gastrointestinal: Denies abdominal pain Musculoskeletal Musculoskeletal: Denies tingling Comments: Left knee pain and swelling Integumentary/Breasts Comments: Abrasion over the left knee Neurologic Neurologic: Denies headache(s), Denies tingling and Denies disequilibrium Hematologic/Lymphatic Hematologic/Lymphatic: Denies easy bleeding and Denies easy bruising Patient History Medical/Surgical History Medical History Chronic pain (Acute) Social History household members: spouse Smoking Status: Former smoker Family/Social History Social History household members: spouse Smoking Status: Former smoker alcohol intake frequency: 0-2 drinks per day Substance Use Type: does not use Exam Initial Vital Signs Initial Vital Signs: Vital Signs Temperature 99.3 F 04/26/19 14:26 Pulse Rate 99 H 04/26/19 14:26 Respiratory Rate 18 04/26/19 14:26 Blood Pressure 106/82 04/26/19 14:26 Pulse Oximetry 95 04/26/19 14:26 Const General: cooperative, comfortable and well developed Orientation: alert and awake Cardio Pulses: dorsalis pedis present Skin Other: Superficial abrasion left anterior knee no active bleeding Neuro Sensory Exam: no sensory deficits noted Extrem General: capillary refill normal Other: Patient with left knee effusion. Tender posterior and also medial aspect. Psych Appearance: grossly normal and well kempt Course Orders Ordered: ED Orders 04/26/19 14:20 XR knee LT 3V Stat Discontinued Medications Hydromorphone HCl (Dilaudid) 1 mg IM NOW ONE Stop: 04/26/19 14:55 Last Admin: 04/26/19 15:07 Dose: 1 mg Documented by: BRANDON Vital Signs Vital signs: Vital Signs - 8 hr 04/26/19 14:26 04/26/19 16:05 04/26/19 16:07 Temperature 99.3 F Pulse Rate 99 H 80 Respiratory Rate 18 18 Blood Pressure 106/82 Blood Pressure [Left Arm] 145/76 H Pulse Oximetry 95 100 Medical Decision Making Imaging Data Xr knee: Radiologist's impression: [address] [address] XRay Report Signed Patient: Donna Alves BMR#: [id number] : [id number]:[id number] Age/Sex: 78 / FDate of Service: 04/26/19 Loc: ED Accession Number: [id number] Procedure: XR knee LT 3V Ordering Provider: Avinash Montalvo D.O. PROCEDURE: XR KNEE LT 3V INDICATIONS: Fall yesterday with pain and bruising TECHNIQUE: 3 views of the knee were acquired. COMPARISON: None. FINDINGS: Bones: No fractures or dislocations. No suspicious bony lesions. Mild generalized joint space narrowing is seen. Soft tissues: There is a small joint effusion. No suspicious soft tissue calcifications. IMPRESSION: Small joint effusion, without an acute bony abnormality seen. If there is point tenderness (or other clinical suspicion for a fracture not seen on these images) then a dedicated CT could be considered for further evaluation, as clinically appropriate. If there is strong clinical suspicion for internal derangement of this joint, please consider a dedicated MRI for further evaluation (assuming that there is no contraindication to MRI). Dictated by: Ronak Rodriguez M.D. on 04/26/2019 at 13:41 Approved by: Ronak Rodriugez M.D. on 04/26/2019 at 13:42 [facility] Narrative Medical decision making narrative: X-ray showed no acute fracture. She is able to do a straight leg raise on the left. I do have low suspicion for quadriceps/patella tendon rupture. She is on 15 mg of morphine 2 times a day. She was given some Dilaudid here in the ER for pain control. Informed her that unfortunately there is nothing stronger that I could send her home with. She expressed understanding with this. She can take ibuprofen at home which she will do. We did discuss icing and elevation. She did ambulate with a walker here in the ER. Will send home with a walker. She was given return precautions and follow-up instructions. She expressed understanding and agreement with plan. Discharge Plan Departure Patient Disposition: Home Clinical Impression: Contusion of knee, left Qualifiers: Encounter type: initial encounter Qualified Code(s): S80.02XA - Contusion of left knee, initial encounter Instructions: How to Choose and Use a Walker, DI for Contusion, DI for Knee Effusion Activity Restrictions/Additional Instructions: Continue all of your medications as directed. Use the walker as needed for your comfort. I do recommend you keep your knee elevated and iced. Contact your primary provider for follow-up. Return to the emergency department for any new or worsening symptoms Prescriptions: No Action calcium carbonate [Calcium 500] 500 mg calcium (1,250 mg) Tablet 1 tab PO DAILY RF: 0 morphine 15 mg tablet extended release 15 mg PO BID RF: 0 mirtazapine 15 mg tablet 0.5 tab PO BEDTIME RF: 0 multivitamin Capsule 1 cap PO DAILY RF: 0 duloxetine 60 mg capsule,delayed release(DR/EC) PO DAILY RF: 0 Vitamin D3 Complete 1 tab PO DAILY RF: 0 Referrals: Abilio Marie MD [Primary Care Provider] -
[2019-04-26 14:26] VITALS: BP 106/82; PULSE 99; RESP 18; TEMP 37.4; O2SAT 95; BMI 19.7
[2019-04-26] MEDS: HYDROMORPHONE 1 MG INJ IM (15:07)
[2019-04-26 16:05] VITALS: BP 145/76; PULSE 80; O2SAT 100
[2019-04-26 16:07] VITALS: RESP 18
--- NOTE | 2019-04-26 16:36 | PC.NURSE ---
walker training done. pt was fitted for a walker and was able to use it properly. Dr. Katia dial.
== END 2019-04-26 16:43 | disposition home or self-care (01) ==
PROVIDERS: Emergency Provider Emergency Medicine; PCP Internal Medicine
DX: S80.02XA Contusion of left knee, initial encounter (principal); W18.30XA Fall on same level, unspecified, initial encounter
CPT/HCPCS: 73562; 99282; 99283; J1170

== ENCOUNTER → 2019-07-23 08:18 | Outpatient (CLI) | payer MEDICARE, SELFPAY ==
--- NOTE | 2019-07-23 | DI.MG.S_ITS ---
BILATERAL DIGITAL SCREENING MAMMOGRAM 3D/2D WITH CAD: 07/23/2019 CLINICAL: Routine screening. Family history of breast cancer. Comparison is made to exams dated: 05/09/2017 mammogram - [facility] and 10/13/2014 mammogram - [facility]. The tissue of both breasts is heterogeneously dense. This may lower the sensitivity of mammography. Current study was also evaluated with a Computer Aided Detection (CAD) system. There are benign calcifications in both breasts. No significant masses, calcifications, or other findings are seen in either breast. There has been no significant interval change. IMPRESSION: There is no mammographic evidence of malignancy. A 1 year screening mammogram is recommended. This exam was interpreted at Station ID: [id number]. NOTE: For mammograms, a report in lay terms will be sent to the patient. Approximately 15% of breast malignancies will not be visualized mammographically. In the management of a palpable breast mass, a negative mammogram must not discourage biopsy of a clinically suspicious lesion. Electronically Signed By: Any [email or web address]:07/23/2019 09:49:53 letter sent: Normal Exam ACR BI-RADS Category 2: Benign Finding(s) 3342F
== END ==
PROVIDERS: PCP Internal Medicine; Visit Provider Internal Medicine
DX: Z12.31 Encounter for screening mammogram for malignant neoplasm of breast (principal); Z80.3 Family history of malignant neoplasm of breast
CPT/HCPCS: 77063; 77067

== ENCOUNTER 2019-11-01 18:56 | Emergency (ER) | payer MEDICARE, SELFPAY ==
[2019-11-01 19:04] VITALS: BP 182/81; PULSE 90; RESP 12; TEMP 37; O2SAT 98
[2019-11-01 19:57] VITALS: BP 181/81; PULSE 76; RESP 12; O2SAT 97
--- NOTE | 2019-11-01 20:40 | ED_ITS ---
HPI - Wound/Laceration <CARMELITA MartinezP-BC - Last Filed: 11/01/19 21:08> General Chief Complaint: Wound/Laceration Stated Complaint: scraped her right fragoso, wound Time Seen by Provider: 11/01/19 19:13 Source: patient and family Mode of arrival: Ambulatory Limitations: no limitations History of Present Illness HPI narrative: The patient is an 79-year-old female who presents with a chief complaint of a injury to her right fragoso. She states that she scraped her fragoso on concrete steps. She did not fall or hit her head. She denies any other pain. Her tried to clean her laceration, but he was concerned about including it. Patients States set her tetanus is up-to-date period. She is Able to ambulate Well. Related Data Home Medications Medication Instructions Recorded Confirmed Vitamin D3 Complete 1 tab PO DAILY 08/21/18 08/21/18 calcium carbonate [Calcium 500] 1 tab PO DAILY 08/21/18 08/21/18 duloxetine PO DAILY 08/21/18 mirtazapine 0.5 tab PO BEDTIME 08/21/18 08/21/18 morphine 15 mg PO BID 08/21/18 08/21/18 multivitamin 1 cap PO DAILY 08/21/18 08/21/18 Allergies Allergy/AdvReac Type Severity Reaction Status Date / Time Sulfa (Sulfonamide Allergy Unknown RASH Verified 04/26/19 14:26 Antibiotics) [SULFA (SULFONAMIDE ANTIBIOTICS)] Review of Systems <Amy Dominique [facility]- - Last Filed: 11/01/19 21:08> Review of Systems Narrative: GENERAL: Denies chills, fatigue, malaise, fever, sweats. HEENT: Denies sinus pain, ear pain, sore throat, difficulty swallowing, dizziness. RESPIRATORY: Denies dyspnea, cough, wheezing, hemoptysis, sputum. CARDIOVASCULAR: Denies chest pain, palpitations, orthopnea, edema, GASTROINTESTINAL: Denies nausea, vomiting, abdominal pain, diarrhea, constipation, melena. : Denies dysuria, frequency, incontinence, hematuria, urinary retention. MUSCULOSKELETAL: see HPI SKIN: see HPI NEUROLOGIC: Denies weakness, headache, numbness, change in speech, confusion, seizures, incoordination. PSYCHIATRIC: No concerning psychosocial issues. 12 point review of systems is negative except for those stated above Patient History <KAYLA Martinez - Last Filed: 11/01/19 21:08> Social History household members: spouse Smoking Status: Former smoker Smoking Status: Former smoker alcohol intake frequency: 0-2 drinks per day Substance Use Type: does not use Exam <KAYLA Martinez - Last Filed: 11/01/19 21:08> Narrative Exam Narrative: GENERAL: Elderly female in no acute distress HEAD: Atraumatic. Normocephalic. No temporal or scalp tenderness. EYES: Pupils equal round and reactive. Extraocular motions intact. No scleral icterus. No injection or drainage. ENT: Nose without bleeding, purulent drainage or septal hematoma. Throat without erythema, tonsillar hypertrophy or exudate. Uvula midline. Airway patent. NECK: Trachea midline. No JVD or lymphadenopathy. Supple, nontender, no meningeal signs. CARDIOVASCULAR: Regular rate and rhythm RESPIRATORY: No cough. No increase respiratory effort. S picking full sent in cyst period EXTREMITIES: 2 x 6 cm cm skin tear on right lower leg over lower fragoso. No obviously muscle or tendinous involvement. through dermis. slight oozing blood. torn skin has been removed. BACK: Nontender without deformity or crepitance. No flank tenderness. NEURO: AOx3. SKIN: See extremity exam Initial Vital Signs Initial Vital Signs: Vital Signs Temperature 98.6 F 11/01/19 19:04 Pulse Rate 90 11/01/19 19:04 Respiratory Rate 12 11/01/19 19:04 Blood Pressure 182/81 H 11/01/19 19:04 Pulse Oximetry 98 11/01/19 19:04 <Inderjit Hahn DO - Last Filed: 11/02/19 03:27> Initial Vital Signs Initial Vital Signs: Vital Signs Temperature 98.6 F 11/01/19 19:04 Pulse Rate 90 11/01/19 19:04 Respiratory Rate 12 11/01/19 19:04 Blood Pressure 182/81 H 11/01/19 19:04 Pulse Oximetry 98 11/01/19 19:04 Course <KAYLA Martinez - Last Filed: 11/01/19 21:08> Vital Signs Vital signs: Vital Signs - 8 hr 11/01/19 19:57 04/18/20 21:14 Pulse Rate 76 78 Respiratory Rate 12 20 Blood Pressure [Left Arm] 181/81 H Pulse Oximetry 97 98 <Inderjit Hahn DO - Last Filed: 11/02/19 03:27> Vital Signs Vital signs: Vital Signs - 8 hr 11/01/19 19:57 11/01/19 21:14 Pulse Rate 76 78 Respiratory Rate 12 20 Blood Pressure [Left Arm] 181/81 H Pulse Oximetry 97 98 MDM - Wound/Laceration <MONSERRAT Martinez-BC - Last Filed: 11/01/19 21:08> MDM Narrative Medical decision making narrative: The patients wound was cleansed with chlorhexidine. Her tetanus is up-to-date. Patient and decline X-ray. Wound was Dressed by nursing. I discussed at length monitoring for signs and symptoms of infection such as redness, extending redness, fever and purulence drainage. Patient and have no questions or concerns upon discharge and state understanding return precautions as well as follow-up care. Discharge Plan Departure Patient Disposition: Home Clinical Impression: Skin tear Discharge Date/Time: 11/01/19 21:19 Instructions: Minor Wounds (Alternative Therapy) Activity Restrictions/Additional Instructions: Thank you for trusting us with her care today. I am sorry back to you had an injury. I hope it heals well and soon. Please follow-up with primary care provider in the next few days. Please monitor for sinus and symptoms have infections itches purulence drainage, extended redness etcetera Please follow-up if these occur. Please come back to the ER for any acute concerns Prescriptions: No Action calcium carbonate [Calcium 500] 500 mg calcium (1,250 mg) Tablet 1 tab PO DAILY RF: 0 morphine 15 mg tablet extended release 15 mg PO BID RF: 0 mirtazapine 15 mg tablet 0.5 tab PO BEDTIME RF: 0 multivitamin Capsule 1 cap PO DAILY RF: 0 duloxetine 60 mg capsule,delayed release(DR/EC) PO DAILY RF: 0 Vitamin D3 Complete 1 tab PO DAILY RF: 0 Referrals: Abilio Marie MD [Primary Care Provider] - <Inderjit Hahn DO - Last Filed: 11/02/19 03:27> Cosign ED Attending Cosignature Attestation: I was immediately available in the department for consultation. This documentation has been reviewed and I agree with assessment and plan. Supervised by Inderjit Hahn, DO
[2019-11-01 21:14] VITALS: PULSE 78; RESP 20; O2SAT 98
== END 2019-11-01 21:19 | disposition home or self-care (01) ==
PROVIDERS: Emergency Provider Nurse Practitioner Family; PCP Internal Medicine
DX: S80.811A Abrasion, right lower leg, initial encounter (principal); X58.XXXA Exposure to other specified factors, initial encounter
CPT/HCPCS: 99281; 99283

== ENCOUNTER → 2019-11-11 10:08 | Outpatient (CLI) | payer MEDICARE, SELFPAY | PROVIDERS: Family Provider Internal Medicine; PCP Internal Medicine; Referring Provider Internal Medicine; Visit Provider Family Medicine | DX: S81.801A Unspecified open wound, right lower leg, initial encounter (principal); R60.0 Localized edema | CPT/HCPCS: 11042; 99203; 99213 ==

== ENCOUNTER → 2019-11-24 10:50 | Outpatient (CLI) | payer MEDICARE, SELFPAY | PROVIDERS: Family Provider Internal Medicine; PCP Internal Medicine; Referring Provider Internal Medicine; Visit Provider Family Medicine | DX: S81.801A Unspecified open wound, right lower leg, initial encounter (principal) | CPT/HCPCS: 97597 ==

== ENCOUNTER → 2019-12-09 11:01 | Outpatient (CLI) | payer MEDICARE, SELFPAY | PROVIDERS: Family Provider Internal Medicine; PCP Internal Medicine; Referring Provider Internal Medicine; Visit Provider Family Medicine | DX: S81.801A Unspecified open wound, right lower leg, initial encounter (principal) | CPT/HCPCS: 97597 ==

== ENCOUNTER → 2019-12-15 10:09 | Outpatient (CLI) | payer MEDICARE, SELFPAY | PROVIDERS: Family Provider Internal Medicine; PCP Internal Medicine; Referring Provider Internal Medicine; Visit Provider Family Medicine | DX: S81.801A Unspecified open wound, right lower leg, initial encounter (principal) | CPT/HCPCS: 99213 ==

== ENCOUNTER → 2019-12-22 15:46 | Outpatient (CLI) | payer MEDICARE, SELFPAY | PROVIDERS: Family Provider Internal Medicine; PCP Internal Medicine; Referring Provider Internal Medicine; Visit Provider Family Medicine | DX: S81.801A Unspecified open wound, right lower leg, initial encounter (principal) | CPT/HCPCS: 99213 ==

== ENCOUNTER → 2019-12-29 13:02 | Outpatient (CLI) | payer MEDICARE, SELFPAY | PROVIDERS: Family Provider Internal Medicine; PCP Internal Medicine; Referring Provider Internal Medicine; Visit Provider Family Medicine | DX: S81.801D Unspecified open wound, right lower leg, subsequent encounter (principal) | CPT/HCPCS: 99212; 99213 ==

== ENCOUNTER → 2020-02-11 18:53 | Outpatient (ROUT) | payer MEDICARE, SELFPAY ==
[2020-02-11 19:10] LABS: Aspartate Aminotransferase 37 IU/L (14-36); Blood Urea Nitrogen 39 mg/dL (7-17); Calcium 9.7 mg/dL (8.4-10.2); Carbon Dioxide 32 mmol/L (22-32); Chloride 94 mmol/L (98-107); Cholesterol 151 mg/dL (140-199); Estimated Glomerular Filt Rate 33.3 mL/min (>60); Glucose 82 mg/dL (80-110); HDL Cholesterol 78 mg/dL (40-60); HEMOLYSIS < 15 (0-50); LDL Cholesterol Calculated 56 mg/dL (<100); Sodium 133 mmol/L (137-145); Triglycerides 85 mg/dL (35-150)
[2020-02-11 19:40] LABS: TSH w/ Reflex to FT4 0.78 uIU/mL (0.47-4.68)
[2020-02-11 19:59] LABS: Vitamin B12 486 pg/mL (239-931)
== END ==
PROVIDERS: Family Provider Internal Medicine; PCP Internal Medicine; Visit Provider Internal Medicine
DX: E78.2 Mixed hyperlipidemia (principal); I10 Essential (primary) hypertension
CPT/HCPCS: 80048; 80061; 82607; 84443; 84450

== ENCOUNTER → 2020-04-15 08:05 | Outpatient (CLI) | payer MEDICARE, SELFPAY ==
[2020-04-16 14:34] LABS: COVID19 Sendout Not Detected (Not Detect)
== END ==
PROVIDERS: Family Provider Internal Medicine; PCP Internal Medicine; Visit Provider Nurse Practitioner
DX: Z11.59 Encounter for screening for other viral diseases (principal)
CPT/HCPCS: 87635

== ENCOUNTER → 2020-05-02 08:20 | Outpatient (CLI) | payer MEDICARE, SELFPAY ==
[2020-05-03 14:59] LABS: COVID19 Sendout Not Detected (Not Detect)
== END ==
PROVIDERS: Family Provider Internal Medicine; PCP Internal Medicine; Visit Provider Physician Assistant
DX: Z01.812 Encounter for preprocedural laboratory examination (principal)
CPT/HCPCS: 87635

== ENCOUNTER → 2020-10-20 08:10 | Outpatient (CLI) | payer MEDICARE, SELFPAY ==
--- NOTE | 2020-10-20 | DI.MRI.S_ITS ---
PROCEDURE: MR HEAD/BRAIN WO CON INDICATIONS: Cerebral infarction, unspecified TECHNIQUE: Non-contrast axial T1 spin echo, axial T2 fast spin echo, sagittal and axial FLAIR, coronal T2 fast spin echo, axial gradient echo, axial diffusion and ADC through the brain. COMPARISON: [facility], CT, HEAD WITHOUT CONTRAST, 10/17/2017, 13:14. FINDINGS: Image quality: Excellent. CSF spaces: Ventricles appear symmetric in size and shape. Basal cisterns are patent. No extra-axial fluid collections. Brain: No intracranial bleeds or mass effects. There is cerebral volume loss for age. There are periventricular and deep white matter chronic small vessel ischemic changes. Brainstem appears normal. Diffusion-weighted images show no acute ischemic insults. No chronic ischemic insults. Normal intravascular flow voids are present. Relatively prominent perivascular spaces are noted. Skull and face: Calvarial bone marrow is normal in signal. Orbits are normal. Sinuses: Sinuses and mastoids are clear. IMPRESSION: Intracranial study within normal limits for age, with note made of brain parenchymal volume loss and chronic small vessel ischemic change. No findings of acute or subacute infarction can be seen. Dictated by: Ronak Rodriguez M.D. on 10/20/2020 at 8:41 Approved by: Ronak Rodriguez M.D. on 10/20/2020 at 8:42
== END ==
PROVIDERS: Family Provider Internal Medicine; PCP Internal Medicine; Referring Provider Internal Medicine; Visit Provider Internal Medicine
DX: I63.9 Cerebral infarction, unspecified (principal)
CPT/HCPCS: 70551

== ENCOUNTER 2021-05-05 17:08 | Emergency (ER) | payer MEDICARE, SELFPAY ==
[2021-05-05 17:21] VITALS: BP 114/78; PULSE 90; RESP 18; TEMP 37.2; O2SAT 96
[2021-05-05 18:17] LABS: Appearance Urine UA SL CLOUDY; Bilirubin Urine UA NEGATIVE (NEGATIVE); Color Urine UA YELLOW; Glucose Urine UA NEGATIVE (Negative); Ketones Urine UA NEGATIVE (NEGATIVE); Leukocyte Esterase Urine UA NEGATIVE (NEGATIVE); Nitrite Urine UA NEGATIVE (Negative); Occult Blood Urine UA NEGATIVE (Negative); Protein Urine UA TRACE (Negative); Urobilinogen Urine UA 0.2 E.U./dL (0.2)
[2021-05-05 18:27] LABS: pH Urine UA 5.5 (4.5-8.0)
--- NOTE | 2021-05-05 18:38 | ED_ITS ---
HPI - General Adult General Chief complaint: Urogenital-Female Stated complaint: DX Alzhiemers, UTI Time Seen by Provider: 05/05/21 18:38 Source: family Mode of arrival: Ambulatory Limitations: no limitations History of Present Illness HPI narrative: 80-year-old woman with dementia, osteoarthritis with a visual narcotic use, presents with increasing fatigue and decreasing appetite for the last 3 weeks and her reporting that ?she is just not quite herself?. Two weeks ago she was seen by her primary physician, Dr. Oconnell and a urinary tract infection was diagnosed. She was treated with levofloxacin for 7 days and completed this yesterday. Today her reports that she simply is just not feeling better. She has had intermittent abdominal pain and occasional diarrhea over the last 3 months. No reports of fever, chills, cough, chest pain, nausea or vomiting. No recent trauma. Related Data Home Medications Medication Instructions Recorded Confirmed Vitamin D3 Complete 1 tab PO DAILY 08/21/18 11/17/20 calcium carbonate 500 mg calcium 1 tab PO DAILY 08/21/18 11/17/20 (1,250 mg) tablet (Calcium 500) duloxetine 60 mg capsule,delayed PO DAILY 08/21/18 11/17/20 release mirtazapine 15 mg tablet 0.5 tab PO BEDTIME 08/21/18 11/17/20 multivitamin 1 cap PO DAILY 08/21/18 11/17/20 rosuvastatin 10 mg tablet 10 mg PO DAILY 02/25/20 11/17/20 donepezil 10 mg tablet (Aricept) 10 mg PO DAILY 11/17/20 11/17/20 morphine 15 mg tablet,extended 15 mg PO DAILY tab 11/17/20 11/17/20 release Allergies Allergy/AdvReac Type Severity Reaction Status Date / Time Sulfa (Sulfonamide Allergy Unknown RASH Verified 11/17/20 10:06 Antibiotics) [SULFA (SULFONAMIDE ANTIBIOTICS)] Review of Systems Review of Systems Narrative: Remainder of complete review of systems is otherwise unremarkable except for that included in the HPI. Patient History Medical History Central sleep apnea (Unknown) Chronic lumbosacral pain Chronic pain Chronic, continuous use of opioids Failed spinal cord stimulator (~2011) Fatigue Impaired cognitive ability Nocturnal hypoxemia Obstructive sleep apnea syndrome Opioid dependence with current use Osteoarthritis involving multiple joints on both sides of body Scoliosis (and kyphoscoliosis), idiopathic Snoring Surgical History History of lumbar spinal fusion (~2007) Family History Father Alcohol abuse Mother Dementia Social History household members: spouse Smoking Status: Former smoker Smoking Status: Former smoker alcohol intake frequency: 0-2 drinks per day Substance Use Type: does not use Exam Narrative Exam Narrative: General: Frail and cachectic,, in no acute distress. HEENT: Moist mucous membranes, normal sclera with reactive pupils, Respiratory: Lungs are clear to auscultation, no wheezing no rales no rhonchi. Full and symmetrical air movement Cardiac: Regular rate and rhythm no murmurs no bruits Abdomen: Scaphoid, Soft, nontender, good bowel tones, no flank pain Skin: Warm and dry, no rashes Neurologic: Globally weak, Grossly neurologically intact with no obvious asymmetries or abnormalities Extremities: No trauma, no edema Psych: Cooperative, not oriented to person time replacement Initial Vital Signs Initial Vital Signs: Vital Signs Temperature 99.0 F 05/05/21 17:21 Pulse Rate 90 05/05/21 17:21 Respiratory Rate 18 05/05/21 17:21 Blood Pressure 114/78 05/05/21 17:21 Pulse Oximetry 96 05/05/21 17:21 Course Orders Ordered: ED Orders 05/05/21 17:34 Urinalysis and Microscopic Stat 05/05/21 19:03 XR chest 1V Stat 05/05/21 19:15 COVID19 -Nasal swab/Pre-Proc Stat Complete Blood Count AUTO DIFF Stat Comprehensive Metabolic Panel Stat Vital Signs Vital signs: Vital Signs - 8 hr 05/05/21 17:21 05/05/21 19:23 Temperature 99.0 F Pulse Rate 90 75 Respiratory Rate 18 16 Blood Pressure 114/78 138/73 Pulse Oximetry 96 99 Medical Decision Making Lab Data Result diagrams: 05/05/21 19:15 05/05/21 19:15 Labs: Lab Results 05/05/21 05/05/21 05/05/21 Range/Units 17:34 19:15 19:15 WBC 7.1 (4.5-11.0) X10^3/uL RBC 3.33 L (4.0-5.2) X10^6/uL Hgb 11.0 L (12.0-16.0) g/dL Hct 32.6 L (36-46) % MCV 97.9 (80-100) fL MCH 33.1 (26-34) PG MCHC 33.8 (30-36) % RDW 13.1 (11.6-14.8) % Plt Count 258 (150-400) X10^3/uL Neut % (Auto) 75.4 H (50-75) % Lymph % (Auto) 18.3 L (25-40) % Baker % (Auto) 5.3 (3-14) % Eos % (Auto) 0.5 L (2-4) % Baso % (Auto) 0.5 (0-2) % Neut # (Auto) 5300 (0868-7753) /uL Lymph # (Auto) 1300 (9181-4861) /uL Baker # (Auto) 400 (0-900) /uL Eos # (Auto) 0 (0-450) /uL Baso # (Auto) 0 (0-100) /uL Sodium 134 L (137-145) mmol/L Potassium 3.6 (3.4-5.1) mmol/L Chloride 95 L (98-107) mmol/L Carbon Dioxide 31 (22-32) mmol/L BUN 31 H (7-17) mg/dL Creatinine 1.14 H (0.52-1.04) mg/dL Estimated GFR 45.6 L (>60) mL/min BUN/Creatinine Ratio 27.2 H (6-22) Glucose 101 (80-110) mg/dL Calcium 9.1 (8.4-10.2) mg/dL Total Bilirubin 0.5 (0.2-1.3) mg/dL AST 30 (14-36) IU/L ALT 22 (<35) IU/L Alkaline Phosphatase 51 (38-126) U/L Total Protein 7.1 (6.3-8.2) g/dL Albumin 4.1 (3.5-5.0) g/dL Globulin 3.0 (1.7-4.1) g/dL Albumin/Globulin Ratio 1.4 (1.0-2.8) Urine Color Yellow Urine Appearance Sl cloudy Urine pH 5.5 (4.5-8.0) Ur Specific [place] 1.020 (1.000-1.035) Urine Protein Trace H (Negative) Urine Glucose (UA) Negative (Negative) g/dL Urine Ketones Negative (NEGATIVE) Urine Occult Blood Negative (Negative) Urine Nitrate Negative (Negative) Urine Bilirubin Negative (NEGATIVE) Urine Urobilinogen 0.2 (0.2) E.U./dL Ur Leukocyte Esterase Negative (NEGATIVE) Urine RBC 1-5/hpf (0-5/HPF) Urine WBC 1-5/hpf (0-5/HPF) Ur Squamous Epith Cells 0-1 /hpf (0-5/HPF) Urine Bacteria Occasional (0-1) (None) Ur Culture Indicated? Cult not indicated SARS-CoV-2 (PCR) (Negative) 05/05/21 Range/Units 19:15 WBC (4.5-11.0) X10^3/uL RBC (4.0-5.2) X10^6/uL Hgb (12.0-16.0) g/dL Hct (36-46) % MCV (80-100) fL MCH (26-34) PG MCHC (30-36) % RDW (11.6-14.8) % Plt Count (150-400) X10^3/uL Neut % (Auto) (50-75) % Lymph % (Auto) (25-40) % Baker % (Auto) (3-14) % Eos % (Auto) (2-4) % Baso % (Auto) (0-2) % Neut # (Auto) (0875-8973) /uL Lymph # (Auto) (0708-8340) /uL Baker # (Auto) (0-900) /uL Eos # (Auto) (0-450) /uL Baso # (Auto) (0-100) /uL Sodium (137-145) mmol/L Potassium (3.4-5.1) mmol/L Chloride (98-107) mmol/L Carbon Dioxide (22-32) mmol/L BUN (7-17) mg/dL Creatinine (0.52-1.04) mg/dL Estimated GFR (>60) mL/min BUN/Creatinine Ratio (6-22) Glucose (80-110) mg/dL Calcium (8.4-10.2) mg/dL Total Bilirubin (0.2-1.3) mg/dL AST (14-36) IU/L ALT (<35) IU/L Alkaline Phosphatase (38-126) U/L Total Protein (6.3-8.2) g/dL Albumin (3.5-5.0) g/dL Globulin (1.7-4.1) g/dL Albumin/Globulin Ratio (1.0-2.8) Urine Color Urine Appearance Urine pH (4.5-8.0) Ur Specific [place] (1.000-1.035) Urine Protein (Negative) Urine Glucose (UA) (Negative) g/dL Urine Ketones (NEGATIVE) Urine Occult Blood (Negative) Urine Nitrate (Negative) Urine Bilirubin (NEGATIVE) Urine Urobilinogen (0.2) E.U./dL Ur Leukocyte Esterase (NEGATIVE) Urine RBC (0-5/HPF) Urine WBC (0-5/HPF) Ur Squamous Epith Cells (0-5/HPF) Urine Bacteria (None) Ur Culture Indicated? SARS-CoV-2 (PCR) Negative (Negative) Imaging Data Chest x-ray: Radiologist's Impression: FINDINGS:? ? Surgical changes and devices:? Spinal fusion hardware is partially imaged.? Suture material is seen in the right hemithorax.? ? Lungs and pleura:? The lungs are mildly hyperexpanded, which can be seen in the setting of COPD.? No acute airspace opacity is seen.? No pleural effusions or pneumothorax.? ? Mediastinum:? Mediastinal contours appear normal.? Heart size is normal.? Mild aortic atherosclerotic calcifications. ? Bones and chest wall:? No suspicious bony lesions.? Overlying soft tissues appear unremarkable.? There is dextroconvex curvature of the thoracic spine. ? IMPRESSION:? Hyperexpanded lungs can be seen in the setting of COPD.? No acute airspace opacity. ? ? Dictated by: Jeremiah Hogan M.D. on 05/05/2021 at 19:54 ? ? MDM Narrative Medical decision making narrative: 80-year-old woman with Alzheimer's type dementia getting close to the end of her life. Had been doing well until approximately a week ago was diagnosed with urinary tract infection was treated continues to be on the same steeper decline curve with decreased appetite and increasing sleeping. Her brings her in for further evaluation that is actually quite reassuring today. We had a long talk about what end-stage dementia actually looks like and how it continues. I encouraged him to offer her would ever food sounds most appealing to try to get some calories in. I also suggested that he might think about hospice consult to help with resources for her and for him as she gets closer to the end of her life. Discharge Plan Departure Patient Disposition: Home Clinical Impression: Dementia Qualifiers: Dementia type: Alzheimer's Alzheimer's disease onset: unspecified onset Dementia behavioral disturbance: without behavioral disturbance Qualified Code(s): G30.9 - Alzheimer's disease, unspecified Instructions: DI for Alzheimer Disease Activity Restrictions/Additional Instructions: Thank you for coming in today Fortunately, the Levaquin that was prescribed last week has been very effective. There is no evidence of continued urinary tract infection. Her blood work is reassuring. There is no evidence of other infection, anemia, acute kidney problems or liver problems. Unfortunately with Alzheimer's type dementia, each time there is some type of setback like an acute infection it is harder and harder to return to the pre infection baseline. I wish you the best and encourage you to return to the ER if you have further questions or concerns. Prescriptions: No Action calcium carbonate [Calcium 500] 500 mg calcium (1,250 mg) Tablet 1 tab PO DAILY RF: 0 mirtazapine 15 mg tablet 0.5 tab PO BEDTIME RF: 0 multivitamin Capsule 1 cap PO DAILY RF: 0 duloxetine 60 mg capsule,delayed release(DR/EC) PO DAILY RF: 0 Vitamin D3 Complete 1 tab PO DAILY RF: 0 morphine 15 mg tablet extended release 15 mg PO DAILY RF: 0 donepezil [Aricept] 10 mg tablet 10 mg PO DAILY RF: 0 rosuvastatin 10 mg tablet 10 mg PO DAILY RF: 0 Referrals: Abilio Marie MD [Primary Care Provider] -
[2021-05-05 18:39] LABS: Bacteria Urine Occasional (0-1); Culture Indicated Urine Cult Not Indicated; RBC Urine 1-5/HPF (0-5/HPF); Squamous Epithelial Cell Urine 0-1 /HPF (0-5/HPF); WBC Urine 1-5/HPF (0-5/HPF)
--- NOTE | 2021-05-05 19:03 | DI.RAD.S_ITS ---
PROCEDURE: XR CHEST 1V INDICATIONS: Cough TECHNIQUE: One view of the chest was acquired. COMPARISON: None. FINDINGS: Surgical changes and devices: Spinal fusion hardware is partially imaged. Suture material is seen in the right hemithorax. Lungs and pleura: The lungs are mildly hyperexpanded, which can be seen in the setting of COPD. No acute airspace opacity is seen. No pleural effusions or pneumothorax. Mediastinum: Mediastinal contours appear normal. Heart size is normal. Mild aortic atherosclerotic calcifications. Bones and chest wall: No suspicious bony lesions. Overlying soft tissues appear unremarkable. There is dextroconvex curvature of the thoracic spine. IMPRESSION: Hyperexpanded lungs can be seen in the setting of COPD. No acute airspace opacity. Dictated by: Jeremiah Hogan M.D. on 05/05/2021 at 19:54 Approved by: Jeremiah Hogan M.D. on 05/05/2021 at 19:55
[2021-05-05 19:23] VITALS: BP 138/73; PULSE 75; RESP 16; O2SAT 99
[2021-05-05 19:23] LABS: Add Manual Diff / Slide Review NO; Basophils Absolute Auto 0 /uL (0-100); Basophils Percent Auto 0.5 % (0-2); Eosinophils Absolute Auto 0 /uL (0-450); Eosinophils Percent Auto 0.5 % (2-4); Hematocrit 32.6 % (36-46); Lymphocytes Absolute Auto 1300 /uL (1100-4500); Lymphocytes Percent Auto 18.3 % (25-40); Mean Corpuscular HGB Conc 33.8 % (30-36); Mean Corpuscular Hemoglobin 33.1 PG (26-34); Mean Corpuscular Volume 97.9 fL (80-100); Monocytes Absolute Auto 400 /uL (0-900); Monocytes Percent Auto 5.3 % (3-14); Neutrophils Absolute Auto 5300 /uL (1500-7000); Neutrophils Percent Auto 75.4 % (50-75); Platelet Count 258 X10^3/uL (150-400); Red Blood Cell Count 3.33 X10^6/uL (4.0-5.2); Red Cell Distribution Width 13.1 % (11.6-14.8); White Blood Cell Count 7.1 X10^3/uL (4.5-11.0)
[2021-05-05 19:45] LABS: Alanine Aminotransferase 22 IU/L (<35); Albumin 4.1 g/dL (3.5-5.0); Albumin Globulin Ratio 1.4 (1.0-2.8); Alkaline Phosphatase 51 U/L (38-126); Aspartate Aminotransferase 30 IU/L (14-36); BUN Creatinine Ratio 27.2 (6-22); Bilirubin Total 0.5 mg/dL (0.2-1.3); Blood Urea Nitrogen 31 mg/dL (7-17); Calcium 9.1 mg/dL (8.4-10.2); Carbon Dioxide 31 mmol/L (22-32); Chloride 95 mmol/L (98-107); Estimated Glomerular Filt Rate 45.6 mL/min (>60); Glucose 101 mg/dL (80-110); HEMOLYSIS < 15 (0-50); Potassium 3.6 mmol/L (3.4-5.1); Sodium 134 mmol/L (137-145); Total Protein 7.1 g/dL (6.3-8.2)
[2021-05-05 19:48] LABS: COVID19 -Nasal RAPID Negative (Negative)
== END 2021-05-05 21:11 | disposition home or self-care (01) ==
PROVIDERS: Emergency Medicine; Emergency Provider Emergency Medicine; Family Provider Internal Medicine; PCP Internal Medicine
DX: G30.9 Alzheimer's disease, unspecified (principal); F02.80 Dementia in other diseases classified elsewhere, unspecified severity, without behavioral disturbance, psychotic disturbance, mood disturbance, and anxiety; Z20.822 Contact with and (suspected) exposure to COVID-19
CPT/HCPCS: 36415; 71045; 80053; 81001; 85025; 87635; 99284; C9803

== ENCOUNTER → 2022-03-28 07:45 | Outpatient (CLI) | payer MEDICARE, SELFPAY ==
[2022-03-28 08:25] LABS: Hematocrit 33.1 % (36-46); Hemoglobin 11.5 g/dL (12.0-16.0); Mean Corpuscular HGB Conc 34.6 % (30-36); Mean Corpuscular Hemoglobin 32.7 PG (26-34); Mean Corpuscular Volume 94.5 fL (80-100); Platelet Count 344 X10^3/uL (150-400); Red Blood Cell Count 3.51 X10^6/uL (4.0-5.2); White Blood Cell Count 6.3 X10^3/uL (4.5-11.0)
[2022-03-28 08:50] LABS: Alanine Aminotransferase 14 IU/L (<35); Albumin 4.3 g/dL (3.5-5.0); Albumin Globulin Ratio 1.2 (1.0-2.8); Alkaline Phosphatase 54 U/L (38-126); Aspartate Aminotransferase 26 IU/L (14-36); BUN Creatinine Ratio 26.1 (6-22); Bilirubin Total 0.7 mg/dL (0.2-1.3); Blood Urea Nitrogen 24 mg/dL (7-17); Calcium 9.4 mg/dL (8.4-10.2); Carbon Dioxide 33 mmol/L (22-32); Chloride 91 mmol/L (98-107); Estimated Glomerular Filt Rate > 60 mL/min (>60); Globulin 3.5 g/dL (1.7-4.1); Glucose 91 mg/dL (80-110); HEMOLYSIS < 15 (0-50); Potassium 3.7 mmol/L (3.4-5.1); Sodium 134 mmol/L (137-145); Total Protein 7.8 g/dL (6.3-8.2)
[2022-03-28 09:03] LABS: Free T3, Triiodothyronine Free 3.33 pg/mL (2.77-5.27); Free T4, Direct Thyroxine 0.95 ng/dL (0.78-2.19)
[2022-03-28 09:16] LABS: Thyroid Stimulating Hormone 1.31 uIU/mL (0.47-4.68)
== END ==
PROVIDERS: Family Provider Internal Medicine; PCP Internal Medicine; Referring Provider Internal Medicine; Visit Provider Internal Medicine
DX: R53.83 Other fatigue (principal)
CPT/HCPCS: 36415; 80053; 84439; 84443; 84481; 85027

== ENCOUNTER → 2022-11-28 17:41 | Outpatient (ROUT) | payer MEDICARE, SELFPAY ==
[2022-11-28 18:13] LABS: Appearance Urine UA SL CLOUDY; Bilirubin Urine UA NEGATIVE (NEGATIVE); Color Urine UA YELLOW; Glucose Urine UA NEGATIVE (Negative); Ketones Urine UA NEGATIVE (NEGATIVE); Leukocyte Esterase Urine UA TRACE (NEGATIVE); Nitrite Urine UA POSITIVE (Negative); Occult Blood Urine UA TRACE-INTACT (Negative); Protein Urine UA TRACE (Negative); Urobilinogen Urine UA 0.2 E.U./dL (0.2)
[2022-11-28 19:13] LABS: RBC Urine 0-1/HPF (0-5/HPF)
[2022-11-28 19:14] LABS: Bacteria Urine Many (>30); Culture Indicated Urine Specimen Cultured; Renal Epithelial Cells Urine 0-1/HPF (0-1/HPF); Squamous Epithelial Cell Urine 0-1 /HPF (0-5/HPF); Transitional Epi Cells Urine 0-1/HPF (0-5/HPF); WBC Urine 5-10/HPF (0-5/HPF)
== END ==
PROVIDERS: Family Provider Internal Medicine; PCP Internal Medicine; Visit Provider Internal Medicine
DX: R35.0 Frequency of micturition (principal); R30.0 Dysuria; R39.15 Urgency of urination
CPT/HCPCS: 81001; 87077; 87086; 87186

== ENCOUNTER → 2023-01-06 11:39 | Outpatient (ROUT) | payer MEDICARE, SELFPAY ==
[2023-01-06 11:48] LABS: Appearance Urine UA CLEAR; Bilirubin Urine UA NEGATIVE (NEGATIVE); Color Urine UA YELLOW; Glucose Urine UA NEGATIVE (Negative); Ketones Urine UA NEGATIVE (NEGATIVE); Leukocyte Esterase Urine UA NEGATIVE (NEGATIVE); Nitrite Urine UA NEGATIVE (Negative); Occult Blood Urine UA NEGATIVE (Negative); Protein Urine UA NEGATIVE (Negative); Urobilinogen Urine UA 0.2 E.U./dL (0.2)
[2023-01-06 11:51] LABS: pH Urine UA 7.5 (4.5-8.0)
[2023-01-06 11:59] LABS: Bacteria Urine None Seen; Culture Indicated Urine Cult Not Indicated; RBC Urine 0-1/HPF (0-5/HPF); Squamous Epithelial Cell Urine 0-1 /HPF (0-5/HPF); WBC Urine 0-1/HPF (0-5/HPF)
== END ==
PROVIDERS: Family Provider Internal Medicine; PCP Internal Medicine; Visit Provider Internal Medicine
DX: R35.0 Frequency of micturition (principal)
CPT/HCPCS: 81001

== ENCOUNTER → 2023-06-29 18:23 | Outpatient (ROUT) | payer MEDICARE, SELFPAY ==
[2023-06-29 18:29] LABS: Appearance Urine UA SL CLOUDY; Bilirubin Urine UA NEGATIVE (NEGATIVE); Color Urine UA YELLOW; Glucose Urine UA NEGATIVE (Negative); Ketones Urine UA NEGATIVE (NEGATIVE); Leukocyte Esterase Urine UA TRACE (NEGATIVE); Nitrite Urine UA POSITIVE (Negative); Occult Blood Urine UA NEGATIVE (Negative); Protein Urine UA NEGATIVE (Negative); Urobilinogen Urine UA 0.2 E.U./dL (0.2)
[2023-06-29 18:30] LABS: pH Urine UA 7.5 (4.5-8.0)
[2023-06-29 18:41] LABS: Bacteria Urine Many (>30); Culture Indicated Urine Specimen Cultured; RBC Urine 0-1/HPF (0-5/HPF); Squamous Epithelial Cell Urine 0-1 /HPF (0-5/HPF); WBC Urine 10-30/HPF (0-5/HPF)
== END ==
PROVIDERS: Family Provider Internal Medicine; PCP Internal Medicine; Visit Provider Internal Medicine
DX: N39.0 Urinary tract infection, site not specified (principal)
CPT/HCPCS: 81001; 87077; 87086; 87186

== ENCOUNTER → 2023-07-31 12:00 | Outpatient (CLI) | payer OTHER, SELFPAY ==
[2023-07-31 13:08] LABS: Hematocrit 29.9 % (36-46); Hemoglobin 9.8 g/dL (12.0-16.0); Mean Corpuscular HGB Conc 32.8 % (30-36); Mean Corpuscular Hemoglobin 28.5 PG (26-34); Mean Corpuscular Volume 86.7 fL (80-100); Platelet Count 334 X10^3/uL (150-400); Red Blood Cell Count 3.45 X10^6/uL (4.0-5.2); Red Cell Distribution Width 14.9 % (11.6-14.8); White Blood Cell Count 7.3 X10^3/uL (4.5-11.0)
[2023-07-31 13:30] LABS: Alanine Aminotransferase 17 IU/L (<35); Albumin 4.1 g/dL (3.5-5.0); Albumin Globulin Ratio 1.1 (1.0-2.8); Alkaline Phosphatase 79 U/L (38-126); Aspartate Aminotransferase 29 IU/L (14-36); BUN Creatinine Ratio 19.8 (6-22); Bilirubin Total 0.7 mg/dL (0.2-1.3); Blood Urea Nitrogen 24 mg/dL (7-17); Calcium 9.6 mg/dL (8.4-10.2); Carbon Dioxide 32 mmol/L (22-32); Chloride 93 mmol/L (98-107); Cholesterol 148 mg/dL (140-199); Estimated Glomerular Filt Rate 44 mL/min (>60); Globulin 3.7 g/dL (1.7-4.1); Glucose 87 mg/dL (80-110); HDL Cholesterol 68 mg/dL (40-60); HEMOLYSIS < 15 (0-50); LDL Cholesterol Calculated 66 mg/dL (<100); Potassium 4.1 mmol/L (3.4-5.1); Sodium 134 mmol/L (137-145); Total Protein 7.8 g/dL (6.3-8.2); Triglycerides 71 mg/dL (35-150)
[2023-07-31 14:00] LABS: TSH w/ Reflex to FT4 1.21 uIU/mL (0.47-4.68)
== END ==
PROVIDERS: Family Provider Internal Medicine; PCP Internal Medicine; Referring Provider Internal Medicine; Visit Provider Internal Medicine
DX: I10 Essential (primary) hypertension (principal); E78.2 Mixed hyperlipidemia
CPT/HCPCS: 36415; 80053; 80061; 84443; 85027

== ENCOUNTER → 2024-01-11 13:43 | Outpatient (CLI) | payer MEDICARE, SELFPAY | PROVIDERS: Family Provider Internal Medicine; PCP Internal Medicine; Visit Provider Nurse Practitioner Family | DX: S91.309A Unspecified open wound, unspecified foot, initial encounter (principal) | CPT/HCPCS: 87070; 87075; 87147; 87205 ==

== ENCOUNTER → 2024-01-25 14:08 | Outpatient (CLI) | payer MEDICARE, SELFPAY | PROVIDERS: Family Provider Internal Medicine; PCP Internal Medicine; Referring Provider Internal Medicine; Visit Provider Physician Assistant | DX: L89.899 Pressure ulcer of other site, unspecified stage (principal); M20.40 Other hammer toe(s) (acquired), unspecified foot; G30.9 Alzheimer's disease, unspecified; E78.2 Mixed hyperlipidemia | CPT/HCPCS: 11042; 99203; 99214 ==

== ENCOUNTER → 2024-02-01 11:13 | Outpatient (CLI) | payer MEDICARE, SELFPAY | LOC: WC 11:13 | PROVIDERS: Family Provider Internal Medicine; PCP Internal Medicine; Referring Provider Internal Medicine; Visit Provider Physician Assistant | DX: L89.893 Pressure ulcer of other site, stage 3 (principal); M20.40 Other hammer toe(s) (acquired), unspecified foot | CPT/HCPCS: 99213 ==

== ENCOUNTER → 2024-02-14 14:16 | Outpatient (CLI) | payer MEDICARE, SELFPAY ==
--- NOTE | 2024-02-14 14:19 | DI.RAD.S_ITS ---
PROCEDURE: XR FOOT RT MIN 3V INDICATIONS: Pain in right foot TECHNIQUE: 3 views of the foot were acquired. COMPARISON: None. FINDINGS: Mild diffuse osseous demineralization. No fracture or dislocation. Mild hallux valgus with mild 1st MTP, 1st IP, and hallux inter sesamoid osteoarthritis. Mild lateralization of the hallux sesamoids. Hammertoe deformities of the 2nd-5th digits. Pes planus alignment on the nonweightbearing view. Vascular calcifications. IMPRESSION: No fracture dislocation of the right foot. Mild great toe osteoarthritis. Dictated by: Dave Lambert M.D. on 02/14/2024 at 16:45 Approved by: Dave Lambert M.D. on 02/14/2024 at 16:47
== END ==
PROVIDERS: Family Provider Internal Medicine; PCP Internal Medicine; Referring Provider Podiatrist Foot & Ankle Surgery; Visit Provider Podiatrist Foot & Ankle Surgery
DX: M20.41 Other hammer toe(s) (acquired), right foot (principal); M19.071 Primary osteoarthritis, right ankle and foot; M79.671 Pain in right foot
CPT/HCPCS: 73630

== ENCOUNTER → 2024-02-18 15:40 | Outpatient (CLI) | payer MEDICARE, SELFPAY ==
--- NOTE | 2024-02-18 15:40 | DI.US.S_ITS ---
PROCEDURE: US ARTERIAL DUPLEX LE RT INDICATIONS: UNCHANGING ULCER TECHNIQUE: Color and pulse Doppler interrogation was performed of the RIGHT lower extremity arterial system, with image documentation. COMPARISON: None. FINDINGS: Common femoral artery: 93 cm/sec, Deep femoral artery: 68 cm/sec, Proximal superficial femoral artery: 71 cm/sec, Mid superficial femoral artery: 95 cm/sec, Distal superficial femoral artery: 69 cm/sec, Popliteal artery: 93 cm/sec, Posterior tibial artery: 59 cm/sec, Anterior tibial artery/dorsalis pedis: 64 cm/sec, Triphasic waveforms are seen throughout Ojeda-scale imaging description: Mild atherosclerotic plaque IMPRESSION: No hemodynamically significant stenosis seen Dictated by: Brady Herrera M.D. on 02/19/2024 at 10:12 Approved by: Brady Herrera M.D. on 02/19/2024 at 10:42
== END ==
PROVIDERS: Family Provider Internal Medicine; PCP Internal Medicine; Referring Provider Podiatrist Foot & Ankle Surgery; Visit Provider Podiatrist Foot & Ankle Surgery
DX: S91.104D Unspecified open wound of right lesser toe(s) without damage to nail, subsequent encounter (principal)
CPT/HCPCS: 93926

== ENCOUNTER 2024-02-25 06:31 | Day surgery (SDC) | payer MEDICARE, SELFPAY ==
[2024-02-20 14:58] VITALS: BMI 18.4
[2024-02-25] VITALS (8 sets, daily range): BP systolic 120–156; BP diastolic 63–107; PULSE 73–82; RESP 11–16; TEMP 36.2–36.8; O2SAT 90–97; BMI 18.4
--- NOTE | 2024-02-25 | PATH_ITS ---
[facility] Accession Number: [id number] No. of containers..01 Tissue . 01 Material submitted: . toe - RIGHT SECOND TOE . 01 Diagnosis: A. RIGHT SECOND TOE, DIGIT AMPUTATION: Skin with ulcer, extensive chronic and active inflammation. Underlying bone with fibrosis, without histologic evidence of osteomyelitis. Viable soft tissue and skin margins. No evidence of malignancy. V 02/27/2024 1501 Local . 01 Electronically signed: . Nhi Lynn MD, Pathologist NPI- [id number] . 01 Gross description: . Received in formalin with two identifiers and right second toe, is a disarticulated digit 5.6 cm in length by 1.9 cm in diameter with exposed bone extending 1.7 cm from the soft tissue margin. The skin is mcmullen and wrinkled with an ulcerated lesion on the dorsal aspect of the digit measuring 1.0 x 0.7 cm and located 1.2 cm from the nearest soft tissue margin. The nail bed is mcmullen and unremarkable. The soft tissue margin is inked blue and the articular surface is inked orange. Sectioning reveals mcmullen soft tissue with mcmullen trabecular osseous tissue that is difficult to section with a scalpel. Nursery Worker sections are submitted as follows: A1: Soft tissue margin en face. A2: Articular surface en face. A3: Cross-section with lesion and underlying bone. Specimen decalcified. ([id number]) /BEBA 02/26/2024 0905 Local . 01 Pathologist provided ICD-10: M20.5X1 . 01 CPT . 605941 Specimen Comment: A courtesy copy of this report has been sent to [facility] Performed at: [address] [address], [place], [place] [id number] MD Carl Park MD Phone: [phone]
--- NOTE | 2024-02-25 06:16 | PM.PREOP ---
Pre-operative Note COVID-19 COVID-19 status: Not tested Interval Note History & Physical reviewed/Exam performed by Physician: Yes Changes to H&P: No
--- NOTE | 2024-02-25 06:16 | PM.HP.1 ---
History of Present Illness History of Present Illness Chief complaint: Right Toe Amputation Narrative: 83 year old female here for painful and elevated right second toe, which got worse over the last 25 years. A sore was discovered about 6 weeks ago, followed by unresolved skin infected. Patient is accompanied by , who is the primary caregiver. They have obtained clearance from primary care physician to proceed with surgery. Arterial ultrasound was obtained with no acute concern for wound healing potential. Patient denies n/c/f/c/sob/cp. 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 Slow transit constipation Fecal incontinence Gait instability Do not resuscitate Recurrent UTI Mixed hyperlipidemia Generalized anxiety disorder Alzheimer's dementia Osteoarthritis involving multiple joints on both sides of body Chronic, continuous use of opioids Chronic lumbosacral pain Scoliosis (and kyphoscoliosis), idiopathic Failed spinal cord stimulator (~2011) Snoring Obstructive sleep apnea syndrome Nocturnal hypoxemia Central sleep apnea (Unknown) Chronic pain Surgical History History of lumbar spinal fusion (~2007) Family History Father Alcohol abuse Mother Dementia Social History household members: spouse Smoking Status: Former smoker alcohol intake: current Meds Home Medications and Allergies Home Medications Medication Instructions Recorded Confirmed Type multivitamin 1 cap PO DAILY 08/21/18 02/12/24 History acetaminophen 500 mg tablet 500 mg PO Q6H PRN 10/28/21 02/12/24 History (Tylenol Extra Strength) zinc sulfate 50 mg zinc (220 mg) 50 mg PO DAILY 07/19/22 02/12/24 History tablet cholecalciferol (vitamin D3) 1 tab PO DAILY 04/12/23 02/12/24 History meloxicam 15 mg tablet 15 mg PO DAILY #90 tabs 10/24/23 02/12/24 Rx duloxetine 30 mg capsule,delayed 30 mg PO DAILY #90 caps 11/05/23 02/12/24 Rx release Allergies Allergy/AdvReac Type Severity Reaction Status Date / Time Sulfa (Sulfonamide Allergy Unknown RASH Verified 02/12/24 14:09 Antibiotics) [SULFA (SULFONAMIDE ANTIBIOTICS)] Exam Skin Other: right second toe: full-thickess, fibrogranular base, intact border, and moderate localized inflammation. Neuro Other: NV intact. Assessment & Plan Assessment & Plan narrative: 1. Right second toe cellulitis 2. Right second toe acquired deformity 3. Right second toe ulcer Patient seen and evaluated. Surgical plan: right second toe amputation. Risks and benefits of the procedure discussed with all questions answered to patient's satisfaction. Reviewed potential complications that may include but not limited to the following: DVT, failure to resolve all symptoms, infection, nerve injury, bleeding, recurrence, or wound. Reviewed surgical technique and general aftercare protocols. All questions answered to patient's satisfaction with no guarantees made. Patient verbalized understanding and agreed with surgical plan. RTC for post-op. Time-Based Coding :: [TOTAL MINUTES] spent with patient and on the chart (including review of chart, obtaining history, exam, reviewing outside data, placing orders, documenting exam and treatment plan, and counseling patient) on [DATE].
[2024-02-25] MEDS: LACTATED RINGERS 1,000 ML 42 ML IV (07:04)
[2024-02-25] MEDS: CEFAZOLIN 2 GM/100 ML PREMIX 100 ML IV (08:13)
--- NOTE | 2024-02-25 08:38 | SUR.OPER ---
Supine on padded OR bed, head on pillow, arms secured on padded arm boards at <90 degrees abduction, legs uncrossed, safety belt at thigh, tape over blanket over non-op leg. right leg positioned on bump.
[2024-02-25] MEDS: BUPIVACAINE 0.5% (PF) 30 ML VIAL INJ (08:56)
[2024-02-25] MEDS: LIDOCAINE 1% 20 ML INJ (08:57)
[2024-02-25] MEDS: VANCOMYCIN 1,000 MG VIAL 1000 MG TOP (08:57)
--- NOTE | 2024-02-25 09:02 | SUR.OPER ---
Supine on padded OR bed, head on pillow, arms secured on padded arm boards at <90 degrees abduction, legs uncrossed, safety belt at thigh, tape over blanket over lower legs.
--- NOTE | 2024-02-27 05:28 | PM.OP.1 ---
Operative Date/Time/Diagnoses Date of procedure: 02/25/24 Pre-op diagnosis: 1. Right second toe cellulitis 2. Right second toe acquired deformity Post-op diagnosis: same Procedure & Clinicians Procedure: 1. Right second toe amputation Same procedure as scheduled: Yes Indications: Chronic ulcer, infection, deformity, and pain. Surgeon: Scott Petersen Click Yes if Unassisted: Yes Anesthesia Type: Sedation Operative Notes Closure Type: primary Specimen(s): other (Right second toe to pathology and proximal phalanx margin to microbiology.) Applied: graft(s) (AmnioFix 2 x 3 cm) Blood products transfused: none Tourniquet time (min): 0 Procedure in detail: Patient was identified and brought into the operating room. Patient was in supine position for the duration of procedure. An ankle tourniquet was applied but not inflated for this case. Right foot was prepped and draped in the usual sterile fashion, followed by official timeout with the surgical team all in agreement. Attention was carried to the right second toe, where presence of wound and deformity was present. Appropriate incision was used to disarticulate the toe from skin down to the level of bone and joint using a # 15 scalpel. Removed toe was sent to pathology for gross evaluation, and the base of proximal phalanx was resected and sent to microbiology for culture and sensitivity. Open surgical site was irrigated using copious saline mixed with gentamicin solution. All outer gloves were replaced with new sterile glovesm, and previously used instruments were set aside. Decision was made to implant a sheet of AmnioFix 2 x 3 cm into the wound to promote healing potential. Vancomycin powder was also added. Surigcal site was then closed in layers using 4-0 vicryl, 3-0 nylon, and 4-0 nylon. Procedure site was cleaned, and bulky sterile dressing was applied. Patient tolerated procedure without complication and was transferred to PACU hemodynically stable. Post-operative Condition: stable Disposition: same day surgery Plan for aftercare: Limited heel WB in post-op shoe. Elevate above heart. Keep dressing clean, dry, and intact. Return for follow-up as scheduled.
== END 2024-02-25 10:25 | disposition home or self-care (01) ==
PROVIDERS: Family Provider Internal Medicine; PCP Internal Medicine; Referring Provider Podiatrist Foot & Ankle Surgery; Visit Provider Podiatrist Foot & Ankle Surgery
PROC: (CPT 28820; principal; 2024-02-25 07:45)
DX: M20.5X1 Other deformities of toe(s) (acquired), right foot (principal); L03.031 Cellulitis of right toe
CPT/HCPCS: 28820; 87070; 87075; 87205; J0690; J1100; J1885; J2405; J2704; J3010

== ENCOUNTER → 2024-09-04 11:52 | Outpatient (CLI) | payer MEDICARE, SELFPAY ==
[2024-09-04 12:58] LABS: Hemoglobin 11.3 g/dL (12.0-16.0); Mean Corpuscular HGB Conc 33.4 % (30-36); Mean Corpuscular Hemoglobin 31.3 PG (26-34); Mean Corpuscular Volume 93.9 fL (80-100); Platelet Count 417 X10^3/uL (150-400); Red Blood Cell Count 3.62 X10^6/uL (4.0-5.2); Red Cell Distribution Width 13.3 % (11.6-14.8); White Blood Cell Count 7.7 X10^3/uL (4.5-11.0)
[2024-09-04 13:16] LABS: Alanine Aminotransferase 17 IU/L (<35); Albumin 4.6 g/dL (3.5-5.0); Albumin Globulin Ratio 1.1 (1.0-2.8); Alkaline Phosphatase 74 U/L (38-126); Aspartate Aminotransferase 28 IU/L (14-36); BUN Creatinine Ratio 15.4 (6-22); Bilirubin Total 0.8 mg/dL (0.2-1.3); Blood Urea Nitrogen 21 mg/dL (7-17); Calcium 9.8 mg/dL (8.4-10.2); Carbon Dioxide 30 mmol/L (22-32); Chloride 95 mmol/L (98-107); Estimated Glomerular Filt Rate 38 mL/min (>60); Globulin 4.1 g/dL (1.7-4.1); Glucose 98 mg/dL (80-110); HEMOLYSIS < 15 (0-50); Potassium 3.5 mmol/L (3.4-5.1); Sodium 135 mmol/L (137-145); Total Protein 8.7 g/dL (6.3-8.2)
[2024-09-04 13:47] LABS: TSH w/ Reflex to FT4 1.42 uIU/mL (0.47-4.68)
== END ==
PROVIDERS: Family Provider Internal Medicine; PCP Internal Medicine; Referring Provider Internal Medicine; Visit Provider Internal Medicine
DX: G47.31 Primary central sleep apnea (principal)
CPT/HCPCS: 36415; 80053; 84443; 85027

== ENCOUNTER 2024-09-21 09:23 | Emergency (ER) | payer MEDICARE, SELFPAY ==
[2024-09-21 09:45] VITALS: BP 158/87; PULSE 91; RESP 16; TEMP 36.6; O2SAT 93; BMI 18.8
--- NOTE | 2024-09-21 10:15 | DI.CT.S_ITS ---
PROCEDURE: CT HEAD/BRAIN WO CON INDICATIONS: fall laceration TECHNIQUE: Noncontrast 4.5 mm thick angled axial sections acquired from the foramen magnum to the vertex, with coronal and sagittal reformats. For radiation dose reduction, the following was used: automated exposure control, adjustment of mA and/or kV according to patient size. COMPARISON: None. FINDINGS: Image quality: Diagnostic. CSF spaces: Basal cisterns are patent. No extra-axial fluid collections. The ventricles are symmetric in size and shape. Brain: No intracranial bleeds or masses. There is cerebral volume loss for age, with resultant ventricular and sulcal prominence. There are periventricular and deep white matter chronic small vessel ischemic changes. There is intracranial internal carotid artery atherosclerosis. Skull and face: Calvarium and visualized facial bones appear intact, without suspicious lesions. There is soft tissue injury to the left posterior scalp. Sinuses: Visualized sinuses and mastoids are clear. IMPRESSION: No acute intracranial pathology. Dictated by: Tianna Bedoya M.D. on 09/21/2024 at 10:26 Approved by: Tianna Bedoya M.D. on 09/21/2024 at 10:28
--- NOTE | 2024-09-21 10:15 | DI.CT.S_ITS ---
PROCEDURE: CT CERVICAL SPINE WO CON INDICATIONS: fall TECHNIQUE: Noncontrast 3 mm thick sections acquired from the skull base to the T4 level. Sagittal and coronal reformats were then constructed. For radiation dose reduction, the following was used: automated exposure control, adjustment of mA and/or kV according to patient size. COMPARISON: None. FINDINGS: Image quality: Excellent. Bones: No fractures or dislocations. Visualized superior ribs are intact. Degenerative changes of the cervical spine are most prominent at C3-C5. There is associated minimal grade 1 anterolisthesis C3 on C4. Soft tissues: Prevertebral soft tissues are normal in thickness. No paravertebral hematomas. No apical pneumothoraces. IMPRESSION: No displaced fracture or traumatic subluxation. Dictated by: Tianna Bedoya M.D. on 09/21/2024 at 10:28 Approved by: Tianna Bedoya M.D. on 09/21/2024 at 10:32
--- NOTE | 2024-09-21 10:22 | ED.FALL ---
HPI - Fall General Chief Complaint: Fall Stated Complaint: fell and hit head Time Seen by Provider: 09/21/24 10:15 Source: family Mode of arrival: Ambulatory History of Present Illness HPI Narrative: Patient is an 84-year-old female with advanced Alzheimer's recurrent UTIs chronic low back pain presenting today with fall in bathroom. Has been states that he heard her fall. She slipped fell hitting her head and cutting it on a sharp edge. Not on anticoagulation. No other injury. She seems to be at her baseline mental status. He was a primary historian. Related Data Home Medications Medication Instructions Recorded Confirmed multivitamin 1 cap PO DAILY 08/21/18 09/04/24 acetaminophen 500 mg tablet 500 mg PO Q6H PRN Pain (Scale 10/28/21 09/04/24 (Tylenol Extra Strength) Score 4-6) zinc sulfate 50 mg zinc (220 mg) 50 mg PO DAILY 07/19/22 09/04/24 tablet cholecalciferol (vitamin D3) 1 tab PO DAILY 04/12/23 09/04/24 Previous Rx's Medication Instructions Recorded meloxicam 15 mg tablet 15 mg PO DAILY #90 tabs 10/24/23 duloxetine 30 mg capsule,delayed 30 mg PO DAILY #90 caps 11/05/23 release acetaminophen 300 mg-codeine 30 mg 1 tab PO Q8H PRN pain #30 tabs 02/25/24 tablet cephalexin 500 mg capsule 500 mg PO BID 5 days #10 caps 09/21/24 Allergies Allergy/AdvReac Type Severity Reaction Status Date / Time Sulfa (Sulfonamide Allergy Unknown RASH Verified 09/21/24 09:44 Antibiotics) [SULFA (SULFONAMIDE ANTIBIOTICS)] Patient History Medical History (Updated 09/21/24 @ 12:21 by Heide Graham DO) Hammertoe of second toe of right foot Slow transit constipation Fecal incontinence Gait instability Do not resuscitate Recurrent UTI Mixed hyperlipidemia Generalized anxiety disorder Alzheimer's dementia Osteoarthritis involving multiple joints on both sides of body Chronic, continuous use of opioids Chronic lumbosacral pain Scoliosis (and kyphoscoliosis), idiopathic Failed spinal cord stimulator (~2011) Snoring Obstructive sleep apnea syndrome Nocturnal hypoxemia Central sleep apnea (Unknown) Chronic pain Surgical History History of lumbar spinal fusion (~2007) Family History Father Alcohol abuse Mother Dementia Social History household members: spouse Smoking Status: Former smoker alcohol intake: current Smoking Status: Former smoker alcohol intake frequency: 0-2 drinks per day Exam Initial Vital Signs Initial Vital Signs: Vital Signs Temperature 97.8 F 09/21/24 09:45 Pulse Rate 91 H 09/21/24 09:45 Respiratory Rate 16 09/21/24 09:45 Blood Pressure 158/87 H 09/21/24 09:45 Pulse Oximetry 93 09/21/24 09:45 Oxygen Delivery Method Room Air 09/21/24 09:45 GENERAL: Alert elderly 84-year-old female HEENT: Head 2 cm laceration less inferior parietal area without crepitation or depressed NECK: No vertebral tenderness no step-off CARDIOVASCULAR: Regular rate and rhythm without murmurs, rubs or gallops. RESPIRATORY: Breath sounds equal bilaterally, no wheezes rales or rhonchi. ABDOMEN: Soft, nontender. Normoactive bowel sounds all 4 quadrants. No guarding or rebound. EXTREMITIES: Normal range of motion, no clubbing or edema. Neurovascularly intact BACK: No vertebral tenderness no step-off NEUROLOGICAL: Alert and oriented moving all extremities face is symmetric at baseline per SKIN: Warm, dry, no laceration, no petechiae, no rashes or lesions. Procedures Laceration Repair Laceration 1: Site: scalp Size (cm): 2 Description: linear Depth: simple, single layer Skin layer closed with: sera (2) Course Orders Ordered: ED Orders 09/21/24 10:15 CT cervical spine wo con Stat CT head/brain wo con Stat 09/21/24 10:33 CBC Auto Diff [Complete Blood Count AUTO DIFF] Stat CMP [Comprehensive Metabolic Panel] Stat 09/21/24 11:24 Urine Culture Stat Urine Microscopic Stat Vital Signs Vital signs: Vital Signs - 8 hr 09/21/24 09:45 09/21/24 12:53 Temperature 97.8 F 98 F Pulse Rate 91 H 80 Respiratory Rate 16 16 Blood Pressure 158/87 H 131/64 Pulse Oximetry 93 99 Oxygen Delivery Method Room Air Room Air MDM - Fall Lab Data 09/21/24 10:33 09/21/24 10:33 Labs: Lab Results 09/21/24 09/21/24 Range/Units 10:33 11:24 WBC 6.2 (4.5-11.0) X10^3/uL RBC 3.53 L (4.0-5.2) X10^6/uL Hgb 11.0 L (12.0-16.0) g/dL Hct 32.8 L (36-46) % MCV 93.0 (80-100) fL MCH 31.3 (26-34) PG MCHC 33.6 (30-36) % RDW 13.8 (11.6-14.8) % Plt Count 371 (150-400) X10^3/uL Neut % (Auto) 81.7 H (50-75) % Lymph % (Auto) 7.4 L (25-40) % [place] % (Auto) 9.7 (3-14) % Eos % (Auto) 0.5 L (2-4) % Baso % (Auto) 0.7 (0-2) % Neut # (Auto) 5100 (5001-1938) /uL Lymph # (Auto) 500 L (6995-0226) /uL [place] # (Auto) 600 (0-900) /uL Eos # (Auto) 0 (0-450) /uL Baso # (Auto) 0 (0-100) /uL Sodium 131 L (137-145) mmol/L Potassium 4.2 (3.4-5.1) mmol/L Chloride 92 L (98-107) mmol/L Carbon Dioxide 29 (22-32) mmol/L BUN 22 H (7-17) mg/dL Creatinine 1.29 H (0.52-1.04) mg/dL Estimated GFR 40 L (>60) mL/min BUN/Creatinine Ratio 17.1 (6-22) Glucose 142 H (80-110) mg/dL Calcium 9.3 (8.4-10.2) mg/dL Total Bilirubin 0.6 (0.2-1.3) mg/dL AST 30 (14-36) IU/L ALT 19 (<35) IU/L Alkaline Phosphatase 61 (38-126) U/L Total Protein 7.8 (6.3-8.2) g/dL Albumin 4.3 (3.5-5.0) g/dL Globulin 3.5 (1.7-4.1) g/dL Albumin/Globulin Ratio 1.2 (1.0-2.8) Urine RBC 0-1/hpf (0-5/HPF) Urine WBC 10-30/hpf H (0-5/HPF) Ur Squamous Epith Cells None seen (0-5/HPF) Urine Bacteria Occasional (0-1) (None) Ur Culture Indicated? Specimen cultured Vol Urine Centrifuged 10ml (spun) Urine Dip Bedside Urine Glucose Negative Bedside Urine Bilirubin - Negative Bedside Urine Ketone - Negative Urine Specific [place] 1.010 Bedside Urine Occult Blood +/- Bedside Urine pH 7.0 Bedside Urine Protein + 30 Bedside Urine Urobilinogen - Negative Bedside Urine Nitrite - Negative Bedside Urine Leukocytes ++ [address] scan - head: Radiologist's Impression: PROCEDURE: CT HEAD/BRAIN WO CON INDICATIONS: fall laceration TECHNIQUE: Noncontrast 4.5 mm thick angled axial sections acquired from the foramen magnum to the vertex, with coronal and sagittal reformats. For radiation dose reduction, the following was used: automated exposure control, adjustment of mA and/or kV according to patient size. COMPARISON: None. FINDINGS: Image quality: Diagnostic. CSF spaces: Basal cisterns are patent. No extra-axial fluid collections. The ventricles are symmetric in size and shape. Brain: No intracranial bleeds or masses. There is cerebral volume loss for age, with resultant ventricular and sulcal prominence. There are periventricular and deep white matter chronic small vessel ischemic changes. There is intracranial internal carotid artery atherosclerosis. Skull and face: Calvarium and visualized facial bones appear intact, without suspicious lesions. There is soft tissue injury to the left posterior scalp. Sinuses: Visualized sinuses and mastoids are clear. IMPRESSION: No acute intracranial pathology. Dictated by: Tianna Bedoya M.D. on 09/21/2024 at 10:26 CT - cervical spine: Radiologist's Impression: PROCEDURE: CT CERVICAL SPINE WO CON INDICATIONS: fall TECHNIQUE: Noncontrast 3 mm thick sections acquired from the skull base to the T4 level. Sagittal and coronal reformats were then constructed. For radiation dose reduction, the following was used: automated exposure control, adjustment of mA and/or kV according to patient size. COMPARISON: None. FINDINGS: Image quality: Excellent. Bones: No fractures or dislocations. Visualized superior ribs are intact. Degenerative changes of the cervical spine are most prominent at C3-C5. There is associated minimal grade 1 anterolisthesis C3 on C4. Soft tissues: Prevertebral soft tissues are normal in thickness. No paravertebral hematomas. No apical pneumothoraces. IMPRESSION: No displaced fracture or traumatic subluxation. Dictated by: Tianna Bedoya M.D. on 09/21/2024 at 10:28 MDM Narrative Medical decision making narrative: Patient is an 84-year-old female history of advanced dementia presenting today after mechanical ground level fall. Has been states that she does fall over she also has recurrent UTIs. Blood work urinalysis imaging ordered. Blood work reviewed overall reassuring no significant electrolyte abnormality leukocytosis or anemia Urinalysis positive for leukocytes but no nitrates, +WBC no bacteria no squamous cell Head CT negative, CT Cspine negative Laceration of head was easily repaired with 2 sera. At this time she may have like a minor UTI we will go ahead and treat with Keflex. Prior urine culture from 2022 is in sensitive to ampicillin but otherwise grossly sensitive Discharge Plan Departure Patient Disposition: Home Clinical Impression: Laceration of head, Acute UTI Instructions: How to Prevent Falls Activity Restrictions/Additional Instructions: *You have been diagnosed with fall UTI *What to do: At this time you might have a bladder infection. Have sera removed in about 5-7 days either with PCP or walk-in clinic May shower and bathe as normal *Continue to take medications as directed Keflex 500 mg twice a day for 5 days *Follow up with your primary care provider in 2-3 days or call [phone] *Return to ER if you should have increasing redness swelling pain [or] any new, worsening or concerning symptoms Prescriptions: New cephalexin 500 mg capsule 500 mg PO BID 5 Days Qty: 10 0RF No Action meloxicam 15 mg tablet 15 mg PO DAILY Qty: 90 3RF acetaminophen [Tylenol Extra Strength] 500 mg tablet 500 mg PO Q6H MDD 4000 PRN (Reason: Pain (Scale Score 4-6)) Patient Comments: 1 tablet at breakfast may take extra at lunch, and dinner. zinc sulfate 50 mg zinc (220 mg) tablet 50 mg PO DAILY cholecalciferol (vitamin D3) 1 tab PO DAILY duloxetine 30 mg capsule,delayed release(DR/EC) 30 mg PO DAILY Qty: 90 3RF multivitamin Capsule 1 cap PO DAILY acetaminophen-codeine 300-30 mg tablet 1 tab PO Q8H PRN (Reason: pain) Qty: 30 0RF Referrals: Abilio Marie MD [Primary Care Provider] - Stand Alone Forms: Patient Portal/API/Survey
[2024-09-21 10:41] LABS: Add Manual Diff / Slide Review NO; Basophils Absolute Auto 0 /uL (0-100); Basophils Percent Auto 0.7 % (0-2); Eosinophils Absolute Auto 0 /uL (0-450); Eosinophils Percent Auto 0.5 % (2-4); Hematocrit 32.8 % (36-46); Lymphocytes Absolute Auto 500 /uL (1100-4500); Lymphocytes Percent Auto 7.4 % (25-40); Mean Corpuscular HGB Conc 33.6 % (30-36); Mean Corpuscular Hemoglobin 31.3 PG (26-34); Monocytes Absolute Auto 600 /uL (0-900); Monocytes Percent Auto 9.7 % (3-14); Neutrophils Absolute Auto 5100 /uL (1500-7000); Neutrophils Percent Auto 81.7 % (50-75); Platelet Count 371 X10^3/uL (150-400); Red Blood Cell Count 3.53 X10^6/uL (4.0-5.2); Red Cell Distribution Width 13.8 % (11.6-14.8); White Blood Cell Count 6.2 X10^3/uL (4.5-11.0)
[2024-09-21 10:57] LABS: Alanine Aminotransferase 19 IU/L (<35); Albumin 4.3 g/dL (3.5-5.0); Albumin Globulin Ratio 1.2 (1.0-2.8); Alkaline Phosphatase 61 U/L (38-126); Aspartate Aminotransferase 30 IU/L (14-36); BUN Creatinine Ratio 17.1 (6-22); Bilirubin Total 0.6 mg/dL (0.2-1.3); Blood Urea Nitrogen 22 mg/dL (7-17); Calcium 9.3 mg/dL (8.4-10.2); Carbon Dioxide 29 mmol/L (22-32); Chloride 92 mmol/L (98-107); Estimated Glomerular Filt Rate 40 mL/min (>60); Globulin 3.5 g/dL (1.7-4.1); Glucose 142 mg/dL (80-110); HEMOLYSIS < 15 (0-50); Potassium 4.2 mmol/L (3.4-5.1); Sodium 131 mmol/L (137-145); Total Protein 7.8 g/dL (6.3-8.2)
[2024-09-21 11:47] LABS: Bacteria Urine Occasional (0-1); Culture Indicated Urine Specimen Cultured; RBC Urine 0-1/HPF (0-5/HPF); Squamous Epithelial Cell Urine None Seen (0-5/HPF); Urine Volume 10mL (spun); WBC Urine 10-30/HPF (0-5/HPF)
[2024-09-21 12:53] VITALS: BP 131/64; PULSE 80; RESP 16; TEMP 36.6; O2SAT 99
== END 2024-09-21 12:54 | disposition home or self-care (01) ==
PROVIDERS: Emergency Provider Emergency Medicine; Family Provider Internal Medicine; PCP Internal Medicine
DX: N39.0 Urinary tract infection, site not specified (principal); S01.01XA Laceration without foreign body of scalp, initial encounter; W01.198A Fall on same level from slipping, tripping and stumbling with subsequent striking against other object, initial encounter; Z87.440 Personal history of urinary (tract) infections; G30.9 Alzheimer's disease, unspecified
CPT/HCPCS: 12001; 70450; 72125; 80053; 81003; 81015; 85025; 87086; 99282; 99284

== ENCOUNTER 2024-09-22 09:01 | Emergency (ER) | payer MEDICARE, SELFPAY ==
[2024-09-22] VITALS (11 sets, daily range): BP systolic 109–165; BP diastolic 70–103; PULSE 77–95; RESP 16–26; TEMP 36.9–37.1; O2SAT 78–100
--- NOTE | 2024-09-22 09:24 | EKG_ITS ---
[address] [id number] [address] [address] Test Date: 2024-09-22 Pat Name: Donna Alves Department: Room: Gender: Female Assisted Living Coordinator: JAREK : 1940 Requested By: Order Number: [id number] Reading MD: Omar Gill Measurements Intervals [address] Rate: 81 P: 36 OK: 178 QRS: 10 QRSD: 72 T: 50 QT: 366 QTc: 425 Interpretive Statements Sinus rhythm with premature atrial complexes Electronically Signed On 09-22-2024 16:20:24 PDT by Omar Gill
[2024-09-22 09:43] LABS: Add Manual Diff / Slide Review NO; Basophils Absolute Auto 0 /uL (0-100); Basophils Percent Auto 0.4 % (0-2); Eosinophils Absolute Auto 0 /uL (0-450); Eosinophils Percent Auto 0.3 % (2-4); Hemoglobin 10.8 g/dL (12.0-16.0); Lymphocytes Absolute Auto 600 /uL (1100-4500); Lymphocytes Percent Auto 7.2 % (25-40); Mean Corpuscular HGB Conc 33.7 % (30-36); Mean Corpuscular Hemoglobin 31.7 PG (26-34); Monocytes Absolute Auto 800 /uL (0-900); Monocytes Percent Auto 9.7 % (3-14); Neutrophils Absolute Auto 7000 /uL (1500-7000); Neutrophils Percent Auto 82.4 % (50-75); Platelet Count 373 X10^3/uL (150-400); Red Cell Distribution Width 13.9 % (11.6-14.8); White Blood Cell Count 8.5 X10^3/uL (4.5-11.0)
--- NOTE | 2024-09-22 09:43 | ED_ITS ---
HPI - Altered Mental Status General Chief Complaint: Altered Mental Status Stated Complaint: Had a seizure and unresponsive last night Time Seen by Provider: 09/22/24 09:31 History of Present Illness HPI narrative: Patient 84-year-old female history of advanced Alzheimer's dementia recurrent UTIs presenting to day with altered mental status and shaking episode last night. I actually saw and evaluated her yesterday after a fall. She did hit her head required 2 sera. Had some basic blood work done and head CT which were negative. It was found that she might have a mild UTI was started on Keflex. Has been states that he took her home they had something to eat. She had she was shaking her arms while sitting on the toilet definitely change in behavior. No nausea or vomiting. Sounds as though with a semi difficult night. This morning decided to bring her in. She is awake alert kind of at her baseline mental status she was able to follow some commands denies any pain no evidence of trauma. Related Data Home Medications Medication Instructions Recorded Confirmed multivitamin 1 cap PO DAILY 08/21/18 09/04/24 acetaminophen 500 mg tablet 500 mg PO Q6H PRN Pain (Scale 10/28/21 09/04/24 (Tylenol Extra Strength) Score 4-6) zinc sulfate 50 mg zinc (220 mg) 50 mg PO DAILY 07/19/22 09/04/24 tablet cholecalciferol (vitamin D3) 1 tab PO DAILY 04/12/23 09/04/24 Previous Rx's Medication Instructions Recorded meloxicam 15 mg tablet 15 mg PO DAILY #90 tabs 10/24/23 duloxetine 30 mg capsule,delayed 30 mg PO DAILY #90 caps 11/05/23 release acetaminophen 300 mg-codeine 30 mg 1 tab PO Q8H PRN pain #30 tabs 02/25/24 tablet cephalexin 500 mg capsule 500 mg PO BID 5 days #10 caps 09/21/24 Allergies Allergy/AdvReac Type Severity Reaction Status Date / Time Sulfa (Sulfonamide Allergy Unknown RASH Verified 09/21/24 09:44 Antibiotics) [SULFA (SULFONAMIDE ANTIBIOTICS)] Patient History Medical History (Updated 09/22/24 @ 12:54 by Heide Graham DO) Hammertoe of second toe of right foot Slow transit constipation Fecal incontinence Gait instability Do not resuscitate Recurrent UTI Mixed hyperlipidemia Generalized anxiety disorder Alzheimer's dementia Osteoarthritis involving multiple joints on both sides of body Chronic, continuous use of opioids Chronic lumbosacral pain Scoliosis (and kyphoscoliosis), idiopathic Failed spinal cord stimulator (~2011) Snoring Obstructive sleep apnea syndrome Nocturnal hypoxemia Central sleep apnea (Unknown) Chronic pain Surgical History History of lumbar spinal fusion (~2007) Family History Father Alcohol abuse Mother Dementia Social History household members: spouse Smoking Status: Former smoker alcohol intake: current Smoking Status: Former smoker alcohol intake frequency: 0-2 drinks per day Exam Initial Vital Signs Initial Vital Signs: Vital Signs Temperature 98.8 F 09/22/24 09:13 Pulse Rate 95 H 09/22/24 09:13 Respiratory Rate 16 09/22/24 09:13 Blood Pressure 109/70 09/22/24 09:13 Pulse Oximetry 95 09/22/24 09:13 Oxygen Delivery Method Room Air 09/22/24 09:13 GENERAL: Alert thin elderly female and in [no acute] distress. HEENT: Head atraumatic,EOMI, pupils reactive, face symmetric, [moist] mucous membranes CARDIOVASCULAR: Regular rate and rhythm without murmurs, rubs or gallops. RESPIRATORY: Breath sounds equal bilaterally, no wheezes rales or rhonchi. ABDOMEN: Soft, nontender. Normoactive bowel sounds all 4 quadrants. No guarding or rebound. EXTREMITIES: Normal range of motion, no clubbing or edema. Neurovascularly intact NEUROLOGICAL: Alert no facial droop. Cranial nerves II through XII grossly intact. Moving both legs manager environmental health strength equal bilaterally SKIN: Warm, dry, no laceration, no petechiae, no rashes or lesions. Course Orders Ordered: ED Orders 09/22/24 10:20 Blood Culture Stat 09/22/24 11:00 Covid-19 + FLU A/B + RSV - PCR Stat Discontinued Medications Sodium Chloride (Normal Saline 0.9%) 1,000 mls @ 150 mls/hr IV CONT JAE Last Admin: 09/22/24 09:44 Dose: Not Given Documented By: Vital Signs Vital signs: Vital Signs - 8 hr 09/22/24 11:30 09/22/24 11:30 09/22/24 12:00 Temperature Pulse Rate 84 Respiratory Rate 26 H Blood Pressure 145/98 H 165/103 H Pulse Oximetry Oxygen Delivery Method 09/22/24 12:00 09/22/24 12:32 09/22/24 13:18 Temperature 98.4 F Pulse Rate 88 88 85 Respiratory Rate 20 24 16 Blood Pressure 135/78 Pulse Oximetry 100 Oxygen Delivery Method Room Air MDM - Altered Mental Status Lab Data 09/22/24 09:28 09/22/24 09:28 Labs: Lab Results 09/22/24 09/22/24 09/22/24 Range/Units 09:28 11:00 11:30 WBC 8.5 (4.5-11.0) X10^3/uL RBC 3.40 L (4.0-5.2) X10^6/uL Hgb 10.8 L (12.0-16.0) g/dL Hct 32.0 L (36-46) % MCV 94.0 (80-100) fL MCH 31.7 (26-34) PG MCHC 33.7 (30-36) % RDW 13.9 (11.6-14.8) % Plt Count 373 (150-400) X10^3/uL Neut % (Auto) 82.4 H (50-75) % Lymph % (Auto) 7.2 L (25-40) % [place] % (Auto) 9.7 (3-14) % Eos % (Auto) 0.3 L (2-4) % Baso % (Auto) 0.4 (0-2) % Neut # (Auto) 7000 (6549-8162) /uL Lymph # (Auto) 600 L (1123-7891) /uL [place] # (Auto) 800 (0-900) /uL Eos # (Auto) 0 (0-450) /uL Baso # (Auto) 0 (0-100) /uL PT 11.1 (9.4-12.5) SECONDS INR 1.0 (0.9-1.3) APTT 34 (25.1-36.5) SECONDS Sodium 132 L (137-145) mmol/L Potassium 3.3 L (3.4-5.1) mmol/L Chloride 95 L (98-107) mmol/L Carbon Dioxide 25 (22-32) mmol/L BUN 30 H (7-17) mg/dL Creatinine 1.42 H (0.52-1.04) mg/dL Estimated GFR 36 L (>60) mL/min BUN/Creatinine Ratio 21.1 (6-22) Glucose 109 (80-110) mg/dL Lactate 2.2 H 0.7 (0.7-2.1) mmol/L Calcium 9.3 (8.4-10.2) mg/dL Total Bilirubin 0.5 (0.2-1.3) mg/dL AST 33 (14-36) IU/L ALT 21 (<35) IU/L Alkaline Phosphatase 60 (38-126) U/L Total Protein 8.4 H (6.3-8.2) g/dL Albumin 4.6 (3.5-5.0) g/dL Globulin 3.8 (1.7-4.1) g/dL Albumin/Globulin Ratio 1.2 (1.0-2.8) TSH 0.595 (0.47-4.68) uIU/mL Prolactin 8.6 (3.0-18.6) ng/mL Salicylates < 1.0 (<20) mg/dL Acetaminophen < 10 (10-30) ug/mL Ethyl Alcohol < 10 ( - 10) mg/dL SARS-CoV-2 (PCR) Negative (Negative) Influenza A (RT-PCR) Flu a negative (NEGATIVE) Influenza B (RT-PCR) Flu b negative (NEGATIVE) RSV (PCR) Negative (Negative) Point of Care Testing Glucose POC [address] scan - head: Radiologist's Impression: PROCEDURE: CT HEAD/BRAIN WO CON INDICATIONS: confusion fall TECHNIQUE: Noncontrast 4.5 mm thick angled axial sections acquired from the foramen magnum to the vertex, with coronal and sagittal reformats. For radiation dose reduction, the following was used: automated exposure control, adjustment of mA and/or kV according to patient size. COMPARISON: [facility], CT, CT HEAD/BRAIN WO CON, 09/21/2024, 9:40. FINDINGS: Image quality: Diagnostic. CSF spaces: Basal cisterns are patent. No extra-axial fluid collections. The ventricles are symmetric in size and shape. Brain: No intracranial bleeds or masses. There is cerebral volume loss for age, with resultant ventricular and sulcal prominence. There are periventricular and deep white matter chronic small vessel ischemic changes. There is intracranial internal carotid artery atherosclerosis. Skull and face: Calvarium and visualized facial bones appear intact, without suspicious lesions. Sinuses: Visualized sinuses and mastoids are clear. IMPRESSION: 1. No acute intracranial pathology. 2. Age related volume loss and moderate white matter small vessel ischemic changes. 3. No acute skull fracture. Dictated by: Pradip Ratliff M.D. on 09/22/2024 at 10:57 ECG Data Attestation: I personally reviewed and interpreted this ECG as follows: Prior ECG tracings: available for review Interpretation: Normal sinus rhythm rate 81 [place] interval 170 QRS [address] changes MDM Narrative Medical decision making narrative: MDM CC: Fall Complicating co-morbidities: Advanced Alzheimer Data collected from: Medical records reviewed: Yes Differential considered: Intracranial hemorrhage sepsis electrolyte abnormality anemia Exam documented above, pertinent findings include: Week 84-year-old female no obvious trauma. Bid Analyst strength equal bilaterally raising lower extremity. Abdomen soft no peripheral edema Lab Test results independently reviewed as above. Pertinent findings: WBC 8.5, hemoglobin 10.8 hematocrit 32.0 platelets 373 Sodium 132 potassium 3.3 yesterday was 4.2 chloride 95 carbon dioxide 25 BUN 30 creatinine 1.42 yesterday 1.29 Lactate 2.2 repeat 0.7 Bilirubin liver enzymes within normal limits Independently reviewed EKG as above Sinus rhythm no ischemia Imaging studies independently reviewed: Head CT no intracranial hemorrhage Consultations: [ ] Treatments: 1 L IV fluids Re-evaluations: Patient ambulated in the ED at baseline per Discussion: Patient 84-year-old female history of Alzheimer's dementia presenting to day with fall last night's possible seizure activity. It does not sound like patient actually had a seizure. Workup in the emergency department overall reassuring. Head CT is negative does appear mildly dehydrated with a slightly elevated creatinine 1.4. She did receive a L of IV fluids. She was treated with Keflex yesterday for possible UTI however urine culture today preliminary does not show any growth could probably stop Keflex. Patient ambulated in the ED at her baseline. Long discussion with . He does have caregivers at home for 12 hours a week on different days. He feels comfortable going home with her. Talked about other living situations such as memory care. He reports that he took the patient out of memory care because there was lack of care in the facility. He feels like he is doing okay at home Discharge Plan Departure Patient Disposition: Home Clinical Impression: Fall, Dehydration Instructions: How to Prevent Falls Activity Restrictions/Additional Instructions: *You have been diagnosed with fall,dehydration *What to do: At this time you actually can stop taking the antibiotic there is no evidence of infection. She was mildly dehydrated today *Continue to take medications as directed Stop taking antibiotics *Follow up with your primary care provider in 2-3 days or call [phone] *Return to ER if you should have increasing confusion falls weakness or any new, worsening or concerning symptoms Prescriptions: No Action meloxicam 15 mg tablet 15 mg PO DAILY Qty: 90 3RF acetaminophen [Tylenol Extra Strength] 500 mg tablet 500 mg PO Q6H MDD 4000 PRN (Reason: Pain (Scale Score 4-6)) Patient Comments: 1 tablet at breakfast may take extra at lunch, and dinner. zinc sulfate 50 mg zinc (220 mg) tablet 50 mg PO DAILY cholecalciferol (vitamin D3) 1 tab PO DAILY duloxetine 30 mg capsule,delayed release(DR/EC) 30 mg PO DAILY Qty: 90 3RF multivitamin Capsule 1 cap PO DAILY cephalexin 500 mg capsule 500 mg PO BID 5 Days Qty: 10 0RF acetaminophen-codeine 300-30 mg tablet 1 tab PO Q8H PRN (Reason: pain) Qty: 30 0RF Referrals: Abilio Marie MD [Primary Care Provider] - Stand Alone Forms: Patient Portal/API/Survey
--- NOTE | 2024-09-22 09:48 | DI.CT.S_ITS ---
PROCEDURE: CT HEAD/BRAIN WO CON INDICATIONS: confusion fall TECHNIQUE: Noncontrast 4.5 mm thick angled axial sections acquired from the foramen magnum to the vertex, with coronal and sagittal reformats. For radiation dose reduction, the following was used: automated exposure control, adjustment of mA and/or kV according to patient size. COMPARISON: [facility], CT, CT HEAD/BRAIN WO CON, 09/21/2024, 9:40. FINDINGS: Image quality: Diagnostic. CSF spaces: Basal cisterns are patent. No extra-axial fluid collections. The ventricles are symmetric in size and shape. Brain: No intracranial bleeds or masses. There is cerebral volume loss for age, with resultant ventricular and sulcal prominence. There are periventricular and deep white matter chronic small vessel ischemic changes. There is intracranial internal carotid artery atherosclerosis. Skull and face: Calvarium and visualized facial bones appear intact, without suspicious lesions. Sinuses: Visualized sinuses and mastoids are clear. IMPRESSION: 1. No acute intracranial pathology. 2. Age related volume loss and moderate white matter small vessel ischemic changes. 3. No acute skull fracture. Dictated by: Pradip Ratliff M.D. on 09/22/2024 at 10:57 Approved by: Pradip Raltiff M.D. on 09/22/2024 at 10:58
[2024-09-22 09:59] LABS: Acetaminophen < 10 ug/mL (10-30); Alanine Aminotransferase 21 IU/L (<35); Albumin 4.6 g/dL (3.5-5.0); Albumin Globulin Ratio 1.2 (1.0-2.8); Alkaline Phosphatase 60 U/L (38-126); Aspartate Aminotransferase 33 IU/L (14-36); BUN Creatinine Ratio 21.1 (6-22); Bilirubin Total 0.5 mg/dL (0.2-1.3); Blood Urea Nitrogen 30 mg/dL (7-17); Calcium 9.3 mg/dL (8.4-10.2); Carbon Dioxide 25 mmol/L (22-32); Chloride 95 mmol/L (98-107); Estimated Glomerular Filt Rate 36 mL/min (>60); Ethanol (ETOH) < 10 mg/dL; Globulin 3.8 g/dL (1.7-4.1); Glucose 109 mg/dL (80-110); HEMOLYSIS < 15 (0-50); Lactate (Lactic Acid) 2.2 mmol/L (0.7-2.1); Potassium 3.3 mmol/L (3.4-5.1); Salicylate < 1.0 mg/dL (<20); Sodium 132 mmol/L (137-145); Total Protein 8.4 g/dL (6.3-8.2)
[2024-09-22 10:02] LABS: Prothrombin Time 11.1 SECONDS (9.4-12.5)
[2024-09-22 10:05] LABS: PTT Partial Thromboplastin Tim 34 SECONDS (25.1-36.5)
[2024-09-22 10:16] LABS: Prolactin 8.6 ng/mL (3.0-18.6)
[2024-09-22 10:30] LABS: Thyroid Stimulating Hormone 0.595 uIU/mL (0.47-4.68)
[2024-09-22 11:15] LABS: Reflexed Lactate in 2 Hours Y
[2024-09-22 11:50] LABS: Lactate 2HR (Lactic Acid Rflx) 0.7 mmol/L (0.7-2.1)
[2024-09-22 12:19] LABS: COVID-19 CEPHEID 4-PLEX PCR Negative (Negative); Influenza A - CEPHEID Flu A NEGATIVE (NEGATIVE); Influenza B - CEPHEID Flu B NEGATIVE (NEGATIVE); Respiratory Syncytial Virus Negative (Negative)
--- NOTE | 2024-09-22 12:33 | PC.NURSE ---
Pt ambulated from bed to [place]. pt using furniture and sink to get to doorway. says that she doesn't have a walker at home. Has rails throughout house. Pt unsteady and shaky on feet. Requiring one assist. Pt says this is normal for pt. Dr Graham notified.
== END 2024-09-22 13:19 | disposition home or self-care (01) ==
PROVIDERS: Emergency Provider Emergency Medicine; Family Provider Internal Medicine; PCP Internal Medicine
DX: E86.0 Dehydration (principal); W19.XXXA Unspecified fall, initial encounter; G30.9 Alzheimer's disease, unspecified; F02.80 Dementia in other diseases classified elsewhere, unspecified severity, without behavioral disturbance, psychotic disturbance, mood disturbance, and anxiety; R79.89 Other specified abnormal findings of blood chemistry
CPT/HCPCS: 0241U; 36415; 70450; 80053; 80320; 80329; 82962; 83605; 84146; 84443; 85025; 85610; 85730; 87040; 93005; 99283; 99284; G0480

== ENCOUNTER 2024-10-24 19:47 | Emergency (ER) | payer MEDICARE, SELFPAY ==
[2024-10-24 19:54] VITALS: BP 127/61; PULSE 117; RESP 18; TEMP 36.6
--- NOTE | 2024-10-24 19:56 | DI.RAD.S_ITS ---
PROCEDURE: XR CHEST 1V INDICATIONS: chest pain TECHNIQUE: One view of the chest was acquired. COMPARISON: [facility], CR, XR CHEST 1V, 05/05/2021, 19:05. FINDINGS: Surgical changes and devices: Postsurgical changes are noted in right upper to midlung zone. Post surgical changes also seen in visualized lumbar spine. Lungs and pleura: Lungs are clear. No pleural effusions or pneumothorax. Mediastinum: Mediastinal contours appear normal. Heart size is normal. Bones and chest wall: No suspicious bony lesions. Overlying soft tissues appear unremarkable. IMPRESSION: No acute cardiopulmonary pathology. Dictated by: Pradip Ratliff M.D. on 10/24/2024 at 20:14 Approved by: Pradip Ratliff M.D. on 10/24/2024 at 20:14
--- NOTE | 2024-10-24 19:58 | EKG_ITS ---
[address] [address] Test Date: 2024-10-24 Pat Name: Donna Alves Department: [facility] Room: Gender: Female Lay Out Machine Operator: : 1940 Requested By: Order Number: [id number] Reading MD: Clint Francois Measurements Intervals [place] Rate: 75 P: 90 [place]: 164 QRS: 22 QRSD: 60 T: 45 QT: 420 QTc: 469 Interpretive Statements Sinus rhythm with premature atrial complexes Electronically Signed On 10-28-2024 20:09:29 PDT by Clint Francois
[2024-10-24 20:05] LABS: Add Manual Diff / Slide Review NO; Basophils Absolute Auto 100 /uL (0-100); Basophils Percent Auto 0.4 % (0-2); Eosinophils Absolute Auto 0 /uL (0-450); Eosinophils Percent Auto 0.1 % (2-4); Hematocrit 23.9 % (36-46); Lymphocytes Absolute Auto 2400 /uL (1100-4500); Lymphocytes Percent Auto 17.4 % (25-40); Mean Corpuscular HGB Conc 33.4 % (30-36); Mean Corpuscular Hemoglobin 31.2 PG (26-34); Mean Corpuscular Volume 93.4 fL (80-100); Monocytes Absolute Auto 600 /uL (0-900); Monocytes Percent Auto 4.5 % (3-14); Neutrophils Absolute Auto 10700 /uL (1500-7000); Neutrophils Percent Auto 77.6 % (50-75); Platelet Count 402 X10^3/uL (150-400); Red Blood Cell Count 2.56 X10^6/uL (4.0-5.2); Red Cell Distribution Width 14.2 % (11.6-14.8); White Blood Cell Count 13.9 X10^3/uL (4.5-11.0)
[2024-10-24 20:06] LABS: Prothrombin Time 11.8 SECONDS (9.4-12.5)
[2024-10-24 20:08] LABS: PTT Partial Thromboplastin Tim 31 SECONDS (25.1-36.5)
[2024-10-24 20:10] LABS: Alanine Aminotransferase 19 IU/L (<35); Albumin Globulin Ratio 1.4 (1.0-2.8); Alkaline Phosphatase 60 U/L (38-126); Aspartate Aminotransferase 27 IU/L (14-36); BUN Creatinine Ratio 39.6 (6-22); Bilirubin Total 0.6 mg/dL (0.2-1.3); Blood Urea Nitrogen 61 mg/dL (7-17); Calcium 9.3 mg/dL (8.4-10.2); Carbon Dioxide 24 mmol/L (22-32); Chloride 93 mmol/L (98-107); Creatine Kinase 36 U/L (30-135); Estimated Glomerular Filt Rate 33 mL/min (>60); Globulin 2.8 g/dL (1.7-4.1); Glucose 151 mg/dL (80-110); HEMOLYSIS < 15 (0-50); Lipase 103 U/L (23-300); Potassium 4.3 mmol/L (3.4-5.1); Sodium 130 mmol/L (137-145); Total Protein 6.8 g/dL (6.3-8.2)
[2024-10-24 20:17] VITALS: PULSE 71; O2SAT 98
[2024-10-24 20:21] LABS: NT-proBNP (BNP-Adult 18+) 1650 pg/mL (<450); Troponin I 0.025 ng/mL (0.01-0.034)
[2024-10-24 20:22] VITALS: BP 129/71; PULSE 72; RESP 22; O2SAT 98
--- NOTE | 2024-10-24 22:32 | ED.GENADULT ---
HPI - General Adult General Chief complaint: Syncope Stated complaint: falls syncope Time Seen by Provider: 10/24/24 20:53 Source: EMS Mode of arrival: EMS History of Present Illness HPI narrative: 84-year-old woman with a history of dementia, DNR/DNI, increase number of falls with a near syncopal episode while trying to have a bowel movement today. History of recent constipation. Medics found her to be hypotensive with systolic blood pressures in the 80 on arrival. She does have a history of recurrent urinary tract infections, most recent ER visit was on September 22. Her describes her in end-stage Alzheimer's disease, he has caregivers coming in 3 times a week it sounds like he is providing amazing care. She was on the toilet for almost an hour and a half at 4:00 a.m. and again around 10:00 a.m. and has been more fatigued today. He states she is been getting out of bed by herself and tends to fall when she does so typically is getting out of bed to go to the bathroom. She is having no fevers, chills or other symptoms beyond her baseline progression of Alzheimer's disease with frailty with decreased appetite, decreased overall p.o. intake and increasing overall weakness. Related Data Home Medications Medication Instructions Recorded Confirmed multivitamin 1 cap PO DAILY 08/21/18 09/25/24 acetaminophen 500 mg tablet 500 mg PO Q6H PRN Pain (Scale 10/28/21 09/25/24 (Tylenol Extra Strength) Score 4-6) zinc sulfate 50 mg zinc (220 mg) 50 mg PO DAILY 07/19/22 09/25/24 tablet cholecalciferol (vitamin D3) 1 tab PO DAILY 04/12/23 09/25/24 Previous Rx's Medication Instructions Recorded duloxetine 30 mg capsule,delayed 30 mg PO DAILY #90 caps 11/05/23 release acetaminophen 300 mg-codeine 30 mg 1 tab PO Q8H PRN pain #30 tabs 02/25/24 tablet meloxicam 15 mg tablet 15 mg PO DAILY #90 tabs 10/21/24 Allergies Allergy/AdvReac Type Severity Reaction Status Date / Time Sulfa (Sulfonamide Allergy Unknown RASH Verified 09/25/24 11:43 Antibiotics) [SULFA (SULFONAMIDE ANTIBIOTICS)] Review of Systems Review of Systems Narrative: Pertinent positive and negative findings as per HPI Patient History Medical History Alzheimer's dementia Central sleep apnea (Unknown) Chronic lumbosacral pain Chronic pain Chronic, continuous use of opioids Do not resuscitate Failed spinal cord stimulator (~2011) Fecal incontinence Gait instability Generalized anxiety disorder Hammertoe of second toe of right foot Mixed hyperlipidemia Nocturnal hypoxemia Obstructive sleep apnea syndrome Osteoarthritis involving multiple joints on both sides of body Recurrent UTI Scoliosis (and kyphoscoliosis), idiopathic Slow transit constipation Snoring Surgical History History of lumbar spinal fusion (~2007) Family History Father Alcohol abuse Mother Dementia Social History household members: spouse Smoking Status: Unknown if ever smoked alcohol intake: current Smoking Status: Unknown if ever smoked alcohol intake frequency: 0-2 drinks per day Exam Initial Vital Signs Initial Vital Signs: Vital Signs Temperature 97.8 F 10/24/24 19:54 Pulse Rate 117 H 10/24/24 19:54 Respiratory Rate 18 10/24/24 19:54 Blood Pressure 127/61 10/24/24 19:54 General: Chronically ill, frail, cachectic Respiratory: Lungs are clear to auscultation, no wheezing no rales no rhonchi. Full and symmetrical air movement Cardiac: Regular rate and rhythm no murmurs no bruits Abdomen: Soft, nontender, no rebound or guarding, no flank pain Skin: Pale, poor skin turgor Neurologic: Globally weak but otherwise Grossly neurologically intact with no obvious asymmetries or abnormalities Extremities: No trauma, no significant lower extremity bruising or trauma Psych: Significant memory loss Course Orders Ordered: ED Orders 10/24/24 19:40 Complete Blood Count AUTO DIFF Stat Comprehensive Metabolic Panel Stat Lipase Stat Magnesium Stat NT-proBNP (BNP-Adult 18+) Stat PTT Partial Thromboplastin [place] Stat Prothrombin Time INR Stat Troponin & CK Cardiac Panel Stat 10/24/24 19:56 XR chest 1V Stat EKG-12 Lead Stat 10/24/24 23:30 UA Complete [Urinalysis and Microscopic] Stat Vital Signs Vital signs: Vital Signs - 8 hr 10/24/24 19:54 10/24/24 20:17 04/11/25 20:22 Temperature 97.8 F Pulse Rate 117 H 71 72 Respiratory Rate 18 22 Blood Pressure 127/61 Pulse Oximetry 98 98 Oxygen Delivery Method 10/24/24 20:22 10/24/24 23:26 10/24/24 23:30 Temperature Pulse Rate 87 90 Respiratory Rate 19 20 Blood Pressure 129/71 139/63 140/60 Pulse Oximetry 94 95 Oxygen Delivery Method Room Air 10/25/24 00:00 Temperature Pulse Rate 86 Respiratory Rate 24 Blood Pressure 127/66 Pulse Oximetry 93 Oxygen Delivery Method Room Air Medical Decision Making Lab Data 10/24/24 19:40 10/24/24 19:40 Labs: Lab Results 10/24/24 10/24/24 Range/Units 19:40 23:30 WBC 13.9 H (4.5-11.0) X10^3/uL RBC 2.56 L (4.0-5.2) X10^6/uL Hgb 8.0 L (12.0-16.0) g/dL Hct 23.9 L (36-46) % MCV 93.4 (80-100) fL MCH 31.2 (26-34) PG MCHC 33.4 (30-36) % RDW 14.2 (11.6-14.8) % Plt Count 402 H (150-400) X10^3/uL Neut % (Auto) 77.6 H (50-75) % Lymph % (Auto) 17.4 L (25-40) % Edwards % (Auto) 4.5 (3-14) % Eos % (Auto) 0.1 L (2-4) % Baso % (Auto) 0.4 (0-2) % Neut # (Auto) 76455 H (4055-3531) /uL Lymph # (Auto) 2400 (2553-6541) /uL Edwards # (Auto) 600 (0-900) /uL Eos # (Auto) 0 (0-450) /uL Baso # (Auto) 100 (0-100) /uL PT 11.8 (9.4-12.5) SECONDS INR 1.0 (0.9-1.3) APTT 31 (25.1-36.5) SECONDS Sodium 130 L (137-145) mmol/L Potassium 4.3 (3.4-5.1) mmol/L Chloride 93 L (98-107) mmol/L Carbon Dioxide 24 (22-32) mmol/L BUN 61 H (7-17) mg/dL Creatinine 1.54 H (0.52-1.04) mg/dL Estimated GFR 33 L (>60) mL/min BUN/Creatinine Ratio 39.6 H (6-22) Glucose 151 H (80-110) mg/dL Calcium 9.3 (8.4-10.2) mg/dL Magnesium 2.0 (1.6-2.3) mg/dL Total Bilirubin 0.6 (0.2-1.3) mg/dL AST 27 (14-36) IU/L ALT 19 (<35) IU/L Alkaline Phosphatase 60 (38-126) U/L Total Creatine Kinase 36 (30-135) U/L Troponin I 0.025 (0.01-0.034) ng/mL NT-Pro-B Natriuret Pep 1650 H (<450) pg/mL Total Protein 6.8 (6.3-8.2) g/dL Albumin 4.0 (3.5-5.0) g/dL Globulin 2.8 (1.7-4.1) g/dL Albumin/Globulin Ratio 1.4 (1.0-2.8) Lipase 103 (23-300) U/L Urine Color Yellow Urine Appearance Clear Urine pH 6.0 (4.5-8.0) Ur Specific [place] 1.015 (1.000-1.035) Urine Protein Trace H (Negative) Urine Glucose (UA) Negative (Negative) g/dL Urine Ketones Negative (NEGATIVE) Urine Occult Blood Negative (Negative) Urine Nitrate Negative (Negative) Urine Bilirubin Negative (NEGATIVE) Urine Urobilinogen 0.2 (0.2) E.U./dL Ur Leukocyte Esterase Negative (NEGATIVE) Urine RBC None seen (0-5/HPF) Urine WBC 0-1/hpf (0-5/HPF) Ur Squamous Epith Cells 0-1 /hpf (0-5/HPF) Ur Transition Epith Cell 0-1/hpf (0-5/HPF) Urine Bacteria None seen (None) Ur Culture Indicated? Cult not indicated Vol Urine Centrifuged 10ml (spun) MDM Narrative Medical decision making narrative: CC: Multiple falls Complicating co-morbidities: Advanced dementia, frailness, decreased oral intake, increasing falls Data collected from: Has been Social determinants of health that may influence the patients condition: Advanced dementia, at 1 point has been in [facility], now at home, has been has caregivers 3 times a week Medical records reviewed: Primary care notes regarding her dementia from September 25 are reviewed Differential considered: Progressive dementia, internal bleeding, trauma from falling, dehydration with orthostatic hypotension, seizures Exam documented above, pertinent findings include: Frail, quite dehydrated, no obvious points of tenderness/pain/injury. Significant memory loss Lab Test results independently reviewed as above. Pertinent findings: CBC shows mild leukocytosis and slight anemia with no obvious source blood loss or active bleeding Chemistries show slight progression of acute kidney injury with creatinine up to 1.54. Sodium is low at 130. ProBNP is slightly elevated at 1650 Urinalysis does not suggest UTI Independently reviewed EKG: Sinus rhythm, poor baseline, no acute ischemia rate of 75 Imaging studies independently reviewed: Chest x-ray is unremarkable and does not show signs of acute congestive heart failure Treatments: 1 L of normal saline Discussion: Long discussion with regarding end-stage Alzheimer's disease. It appears that the patient is becoming less and less interested in eating and drinking which is causing more dehydration and orthostatic hypotension as well as constipation. She is becoming increasingly weak and having more falls. At this point there is no new acute finding that requires further workup, imaging or hospitalization. Did speak with the about contacting hospice again. She may be an excellent candidate for palliative care. Has been describes episodes of decreased level of consciousness to syncope after she is been sitting on the toilet straining for period of time. This has happened multiple times and is often associated with her falls. With fall today med extend her systolic blood pressure to be 80 consistent with significant hypotension secondary to dehydration. I think she is at a point where hospital bed to at least help her stay in bed at night to prevent nighttime falls may be appropriate. was open to that idea and does have phone numbers to contact hospice for further evaluation. Recommended follow up with primary care physician. At this point the patient is safe for discharge Discharge Plan Departure Patient Disposition: Home Clinical Impression: Weakness, Multiple falls, Alzheimer's disease Instructions: DI for Advanced Alzheimer Dementia Activity Restrictions/Additional Instructions: Thank you for coming in today Donna was fairly dehydrated, she was given a L of fluid in the emergency department. All of her chronic issues are continuing to progress with no dramatic findings, obvious infection or reason for hospitalization today We talked about considering additional care at home so that you do have some time to yourself. I would recommend that you contact hospice so they can come out for further evaluation. I think Donna may be an excellent candidate for palliative care. When Alzheimer's gets to the point that your not interested in eating and drinking, with increasing dehydration, increasing weakness and increasing falls this symptoms tend to get progressively worse I would recommend follow up with Dr. Marie. If you find that you are getting worse or develop any new symptoms, please feel free to return to the emergency department for further evaluation. Prescriptions: No Action meloxicam 15 mg tablet 15 mg PO DAILY Qty: 90 3RF acetaminophen [Tylenol Extra Strength] 500 mg tablet 500 mg PO Q6H MDD 4000 PRN (Reason: Pain (Scale Score 4-6)) Patient Comments: 1 tablet at breakfast may take extra at lunch, and dinner. zinc sulfate 50 mg zinc (220 mg) tablet 50 mg PO DAILY cholecalciferol (vitamin D3) 1 tab PO DAILY duloxetine 30 mg capsule,delayed release(DR/EC) 30 mg PO DAILY Qty: 90 3RF multivitamin Capsule 1 cap PO DAILY acetaminophen-codeine 300-30 mg tablet 1 tab PO Q8H PRN (Reason: pain) Qty: 30 0RF Referrals: Abilio Marie MD [Primary Care Provider] - Stand Alone Forms: Patient Portal/API/Survey
[2024-10-24 23:26] VITALS: BP 139/63; PULSE 87; RESP 19; O2SAT 94
[2024-10-24 23:30] VITALS: BP 140/60; PULSE 90; RESP 20; O2SAT 95
[2024-10-24 23:59] LABS: Appearance Urine UA CLEAR; Bilirubin Urine UA NEGATIVE (NEGATIVE); Color Urine UA YELLOW; Glucose Urine UA NEGATIVE (Negative); Ketones Urine UA NEGATIVE (NEGATIVE); Leukocyte Esterase Urine UA NEGATIVE (NEGATIVE); Nitrite Urine UA NEGATIVE (Negative); Occult Blood Urine UA NEGATIVE (Negative); Protein Urine UA TRACE (Negative); Specific Gravity Urine UA 1.015 (1.000-1.035); Urobilinogen Urine UA 0.2 E.U./dL (0.2)
[2024-10-25] VITALS: BP 127/66; PULSE 86; RESP 24; O2SAT 93
[2024-10-25 00:04] LABS: Bacteria Urine None Seen; RBC Urine None Seen (0-5/HPF); Squamous Epithelial Cell Urine 0-1 /HPF (0-5/HPF); Urine Volume 10mL (spun); WBC Urine 0-1/HPF (0-5/HPF)
[2024-10-25 00:05] LABS: Culture Indicated Urine Cult Not Indicated; Transitional Epi Cells Urine 0-1/HPF (0-5/HPF)
== END 2024-10-25 01:05 | disposition home or self-care (01) ==
PROVIDERS: Emergency Provider Emergency Medicine; Family Provider Internal Medicine; PCP Internal Medicine
DX: R53.1 Weakness (principal); R29.6 Repeated falls; I95.9 Hypotension, unspecified; G30.9 Alzheimer's disease, unspecified; R07.9 Chest pain, unspecified
CPT/HCPCS: 51701; 71045; 80053; 81001; 82550; 83690; 83735; 83880; 84484; 85025; 85610; 85730; 93005; 99283; 99284

== ENCOUNTER 2024-11-17 10:45 | Observation (INO) | payer MEDICARE, SELFPAY ==
[2024-11-17] VITALS (40 sets, daily range): BP systolic 111–216; BP diastolic 62–100; PULSE 62–99; RESP 16–48; TEMP 36.6–37.1; O2SAT 87–100; BMI 18.1; BMI 17.4
--- NOTE | 2024-11-17 10:57 | EKG_ITS ---
[address] [address] Test Date: 2024-11-17 Pat Name: Donna Alves Department: Room: Gender: Female Wildlife Manager: JAREK : 1940 Requested By: Order Number: [id number] Reading MD: Boom Wilhelm MD Measurements Intervals [place] Rate: 69 P: 84 CO: 160 QRS: 24 QRSD: 70 T: 59 QT: 400 QTc: 428 Interpretive Statements Sinus rhythm with marked sinus arrhythmia Electronically Signed On 11-17-2024 11:04:16 PDT by Boom Wilhelm MD
--- NOTE | 2024-11-17 10:59 | DI.RAD.S_ITS ---
PROCEDURE: XR CHEST 1V INDICATIONS: Chest Pain TECHNIQUE: One view of the chest was acquired. COMPARISON: [facility], CR, XR CHEST 1V, 10/24/2024, 19:54. FINDINGS: Surgical changes and devices: Partial right pulmonary resection clips, as before. Lungs and pleura: Lungs are clear. No pleural effusions or pneumothorax. Mediastinum: Mediastinal contours appear normal. Heart size is normal. Bones and chest wall: No suspicious bony lesions. Overlying soft tissues appear unremarkable. IMPRESSION: No acute cardiopulmonary abnormality is seen. Dictated by: Hamlet Abreu M.D. on 11/17/2024 at 11:27 Approved by: Hamlet Abreu M.D. on 11/17/2024 at 11:27
[2024-11-17 11:15] LABS: Add Manual Diff / Slide Review NO; Basophils Absolute Auto 100 /uL (0-100); Basophils Percent Auto 0.8 % (0-2); Eosinophils Absolute Auto 200 /uL (0-450); Eosinophils Percent Auto 2.4 % (2-4); Hematocrit 22.7 % (36-46); Hemoglobin 7.5 g/dL (12.0-16.0); Lymphocytes Absolute Auto 800 /uL (1100-4500); Lymphocytes Percent Auto 10.2 % (25-40); Mean Corpuscular HGB Conc 32.9 % (30-36); Mean Corpuscular Hemoglobin 29.5 PG (26-34); Mean Corpuscular Volume 89.7 fL (80-100); Monocytes Absolute Auto 500 /uL (0-900); Monocytes Percent Auto 7.4 % (3-14); Neutrophils Absolute Auto 5900 /uL (1500-7000); Neutrophils Percent Auto 79.2 % (50-75); Platelet Count 417 X10^3/uL (150-400); Red Blood Cell Count 2.53 X10^6/uL (4.0-5.2); Red Cell Distribution Width 15.2 % (11.6-14.8); White Blood Cell Count 7.4 X10^3/uL (4.5-11.0)
[2024-11-17 11:22] LABS: Prothrombin Time 11.1 SECONDS (9.4-12.5)
[2024-11-17 11:24] LABS: PTT Partial Thromboplastin Tim 28 SECONDS (25.1-36.5)
[2024-11-17 11:26] LABS: Alanine Aminotransferase 18 IU/L (<35); Albumin 4.1 g/dL (3.5-5.0); Albumin Globulin Ratio 1.2 (1.0-2.8); Alkaline Phosphatase 71 U/L (38-126); Aspartate Aminotransferase 27 IU/L (14-36); BUN Creatinine Ratio 15.1 (6-22); Bilirubin Total 0.6 mg/dL (0.2-1.3); Blood Urea Nitrogen 19 mg/dL (7-17); Calcium 9.1 mg/dL (8.4-10.2); Carbon Dioxide 26 mmol/L (22-32); Chloride 96 mmol/L (98-107); Creatine Kinase 40 U/L (30-135); Estimated Glomerular Filt Rate 42 mL/min (>60); Globulin 3.4 g/dL (1.7-4.1); Glucose 127 mg/dL (70-99); HEMOLYSIS < 15 (0-50); Lactate (Lactic Acid) 2.3 mmol/L (0.7-2.1); Lipase 108 U/L (23-300); Magnesium 2.1 mg/dL (1.6-2.3); Potassium 3.8 mmol/L (3.4-5.1); Sodium 132 mmol/L (137-145); Total Protein 7.5 g/dL (6.3-8.2)
[2024-11-17 11:37] LABS: NT-proBNP (BNP-Adult 18+) 5800 pg/mL (<450); Troponin I 0.022 ng/mL (0.01-0.034)
--- NOTE | 2024-11-17 12:08 | PC.NURSE ---
Pt arrived to dept via EMS after near syncope while taking a shower. Pt's caregiver reported to EMS that pt stated that she was dizzy while taking a shower and called EMS. EMS transported to ED. Pt states that she is not dizzy at this time and denies cp, sob, n/v, pain. Answers all questions appropriately.
--- NOTE | 2024-11-17 12:38 | ED_ITS ---
HPI - Dizziness General Chief Complaint: Dizziness Stated Complaint: Near syncope Time Seen by Provider: 11/17/24 12:17 Source: patient Mode of arrival: EMS History of Present Illness HPI Narrative: Patient 84-year-old female history of Alzheimer's dementia frequent falls has caregiver presents today with dizziness. Has been at bedside reports that they do have caregivers some of the time there is a new caregiver today. She was sitting on the toilet and extreme pain feeling pain in her rectum which happens to her often felt dizzy and lightheaded. Did not fall no injury. Has been reports that she has had some dark tarry stool previously. He reports that she frequently Alexander's constipation sometimes they have to manually disimpact her. She has been taking MiraLax 1-2 times daily. She is not on any anticoagulation medication. No abdominal pain overall appears comfortable. Related Data Home Medications Medication Instructions Recorded Confirmed acetaminophen 500 mg tablet 500 mg PO Q6H PRN Pain (Scale 10/28/21 11/17/24 (Tylenol Extra Strength) Score 4-6) duloxetine 30 mg capsule,delayed 30 mg PO DAILY 11/17/24 11/17/24 release meloxicam 15 mg tablet 15 mg PO DAILY 11/17/24 11/17/24 Allergies Allergy/AdvReac Type Severity Reaction Status Date / Time Sulfa (Sulfonamide Allergy Unknown RASH Verified 11/12/24 14:16 Antibiotics) [SULFA (SULFONAMIDE ANTIBIOTICS)] Patient History Medical History Hammertoe of second toe of right foot Slow transit constipation Fecal incontinence Gait instability Do not resuscitate Recurrent UTI Mixed hyperlipidemia Generalized anxiety disorder Alzheimer's dementia Osteoarthritis involving multiple joints on both sides of body Chronic, continuous use of opioids Chronic lumbosacral pain Scoliosis (and kyphoscoliosis), idiopathic Failed spinal cord stimulator (~2011) Snoring Obstructive sleep apnea syndrome Nocturnal hypoxemia Central sleep apnea (Unknown) Chronic pain Surgical History History of lumbar spinal fusion (~2007) Family History Father Alcohol abuse Mother Dementia Social History household members: spouse Smoking Status: Former smoker alcohol intake: current Smoking Status: Never smoker alcohol intake frequency: 0-2 drinks per day Exam Initial Vital Signs Initial Vital Signs: Vital Signs Blood Pressure 111/62 11/17/24 10:50 GENERAL: Alert 84-year-old female in no acute distress appears slightly pale HEENT: Head atraumatic,EOMI, pupils reactive, face symmetric, [moist] mucous membranes CARDIOVASCULAR: Regular rate and rhythm without murmurs, rubs or gallops. RESPIRATORY: Breath sounds equal bilaterally, no wheezes rales or rhonchi. ABDOMEN: Soft, nontender. Normoactive bowel sounds all 4 quadrants. No guarding or rebound. [RECTAL:] Hemoccult negative however no stool no hemorrhoids EXTREMITIES: Normal range of motion, no clubbing or edema. Neurovascularly intact NEUROLOGICAL: Alert moving all extremities pleasant SKIN: Warm, dry, no laceration, no petechiae, no rashes or lesions. Course Orders Ordered: ED Orders 11/17/24 10:59 XR chest 1V Stat EKG-12 Lead Stat 11/17/24 11:06 Complete Blood Count AUTO DIFF Stat Comprehensive Metabolic Panel Stat Lactate (Lactic Acid) Stat Lipase Stat Magnesium Stat NT-proBNP (BNP-Adult 18+) Stat PTT Partial Thromboplastin [place] Stat Prothrombin Time INR Stat Troponin & CK Cardiac Panel Stat 11/17/24 12:49 PRBC [Packed Cells] Stat Type and Screen Stat 11/17/24 12:54 CT angio Abd/Pel GI Bleed Stat 11/17/24 13:59 Hemoglobin and Hematocrit Stat Acetaminophen (Acetaminophen 325 Mg Tablet) 650 mg PO Q6H PRN PRN Reason: Fever/Mild Pain (1-3) Duloxetine HCl (Duloxetine 30 Mg Capsule) 30 mg PO DAILY JAE Dextrose/Sodium Chloride (Dextrose 5%-0.9% Ns) 1,000 mls @ 100 mls/hr IV CONT JAE Lactulose (Lactulose 20 Gm/30 Ml Solution) 20 gm PO BID JAE Naloxone HCl (Naloxone 0.4 Mg/Ml Vial) 0.2 mg IV Q2MIN PRN PRN Reason: Opiate Reversal Ondansetron HCl (Ondansetron 4 Mg/2 Ml Inj) 4 mg IV Q8HR PRN PRN Reason: Nausea And Vomiting Pantoprazole Sodium (Pantoprazole 40 Mg Vial) 20 mg IV BID JAE Sucralfate (Sucralfate 1 Gm/10 Ml Oral Susp) 1 gm PO Q6HR JAE Discontinued Medications Aspirin (Aspirin 81 Mg Chew Tab) 324 mg PO NOW ONE Stop: 11/17/24 11:00 Last Admin: 11/17/24 13:00 Dose: Not Given Documented By: TANYA Pantoprazole Sodium (Pantoprazole 40 Mg Vial) 80 mg IV NOW ONE Stop: 11/17/24 12:55 Last Admin: 11/17/24 13:54 Dose: 80 mg Documented By: DANYA Vital Signs Vital signs: Vital Signs - 8 hr 11/17/24 11:07 11/17/24 11:07 11/17/24 11:08 Temperature Pulse Rate 62 63 Respiratory Rate Blood Pressure 180/75 H Pulse Oximetry 100 11/17/24 11:08 11/17/24 11:30 11/17/24 11:30 Temperature Pulse Rate 69 Respiratory Rate Blood Pressure 167/79 H 167/72 H Pulse Oximetry 93 11/17/24 12:00 11/17/24 12:01 11/17/24 12:01 Temperature Pulse Rate 80 69 Respiratory Rate Blood Pressure 193/90 H Pulse Oximetry 87 L 92 11/17/24 12:30 11/17/24 12:31 11/17/24 12:31 Temperature Pulse Rate 65 72 Respiratory Rate Blood Pressure 163/77 H Pulse Oximetry 95 95 11/17/24 12:50 11/17/24 12:50 11/17/24 13:00 Temperature Pulse Rate 74 75 Respiratory Rate Blood Pressure 216/91 H Pulse Oximetry 93 94 11/17/24 13:00 11/17/24 13:22 11/17/24 13:30 Temperature Pulse Rate Respiratory Rate Blood Pressure 177/81 H 145/79 H Pulse Oximetry 95 11/17/24 13:44 11/17/24 13:44 11/17/24 13:49 Temperature Pulse Rate Respiratory Rate 16 Blood Pressure 166/78 H Pulse Oximetry 96 11/17/24 14:00 11/17/24 14:00 11/17/24 14:30 Temperature Pulse Rate 71 78 Respiratory Rate 20 20 Blood Pressure 162/71 H Pulse Oximetry 92 97 11/17/24 14:30 11/17/24 15:00 11/17/24 15:00 Temperature Pulse Rate 81 Respiratory Rate 23 Blood Pressure 178/80 H 171/78 H Pulse Oximetry 95 11/17/24 15:30 11/17/24 15:31 11/17/24 15:31 Temperature Pulse Rate 99 H 93 H Respiratory Rate 48 H 38 H Blood Pressure 135/100 H Pulse Oximetry 11/17/24 16:00 11/17/24 16:30 11/17/24 16:54 Temperature Pulse Rate 86 83 76 Respiratory Rate 20 16 20 Blood Pressure Pulse Oximetry 94 96 11/17/24 16:54 11/17/24 16:56 11/17/24 17:00 Temperature 98.6 F Pulse Rate 80 73 Respiratory Rate 20 20 Blood Pressure 156/90 H 156/90 H Pulse Oximetry 99 11/17/24 17:00 11/17/24 17:05 11/17/24 17:05 Temperature Pulse Rate 72 Respiratory Rate 19 Blood Pressure 174/96 H 135/75 Pulse Oximetry 98 11/17/24 17:06 11/17/24 17:06 11/17/24 17:07 Temperature Pulse Rate 81 Respiratory Rate 22 Blood Pressure 135/72 141/73 H Pulse Oximetry 99 11/17/24 17:07 11/17/24 17:08 11/17/24 17:08 Temperature Pulse Rate 82 82 Respiratory Rate 23 19 Blood Pressure 135/71 Pulse Oximetry 100 99 11/17/24 17:09 11/17/24 17:09 11/17/24 17:15 Temperature Pulse Rate 83 Respiratory Rate 19 Blood Pressure 137/66 129/77 Pulse Oximetry 99 11/17/24 17:15 11/17/24 17:17 Temperature 98.8 F Pulse Rate 75 78 Respiratory Rate 16 16 Blood Pressure 129/77 Pulse Oximetry 93 MDM - Dizziness Lab Data 11/17/24 13:59 11/17/24 11:06 Labs: Lab Results 11/17/24 11/17/24 11/17/24 Range/Units 11:06 12:49 13:59 WBC 7.4 (4.5-11.0) X10^3/uL RBC 2.53 L (4.0-5.2) X10^6/uL Hgb 7.5 L 7.4 L (12.0-16.0) g/dL Hct 22.7 L 22.5 L (36-46) % MCV 89.7 (80-100) fL MCH 29.5 (26-34) PG MCHC 32.9 (30-36) % RDW 15.2 H (11.6-14.8) % Plt Count 417 H (150-400) X10^3/uL Neut % (Auto) 79.2 H (50-75) % Lymph % (Auto) 10.2 L (25-40) % [place] % (Auto) 7.4 (3-14) % Eos % (Auto) 2.4 (2-4) % Baso % (Auto) 0.8 (0-2) % Neut # (Auto) 5900 (7039-6504) /uL Lymph # (Auto) 800 L (3523-1327) /uL [place] # (Auto) 500 (0-900) /uL Eos # (Auto) 200 (0-450) /uL Baso # (Auto) 100 (0-100) /uL PT 11.1 (9.4-12.5) SECONDS INR 1.0 (0.9-1.3) APTT 28 (25.1-36.5) SECONDS Sodium 132 L (137-145) mmol/L Potassium 3.8 (3.4-5.1) mmol/L Chloride 96 L (98-107) mmol/L Carbon Dioxide 26 (22-32) mmol/L BUN 19 H (7-17) mg/dL Creatinine 1.26 H (0.52-1.04) mg/dL Estimated GFR 42 L (>60) mL/min BUN/Creatinine Ratio 15.1 (6-22) Glucose 127 H (70-99) mg/dL Lactate 2.3 H 1.1 (0.7-2.1) mmol/L Calcium 9.1 (8.4-10.2) mg/dL Magnesium 2.1 (1.6-2.3) mg/dL Total Bilirubin 0.6 (0.2-1.3) mg/dL AST 27 (14-36) IU/L ALT 18 (<35) IU/L Alkaline Phosphatase 71 (38-126) U/L Total Creatine Kinase 40 (30-135) U/L Troponin I 0.022 (0.01-0.034) ng/mL NT-Pro-B Natriuret Pep 5800 H (<450) pg/mL Total Protein 7.5 (6.3-8.2) g/dL Albumin 4.1 (3.5-5.0) g/dL Globulin 3.4 (1.7-4.1) g/dL Albumin/Globulin Ratio 1.2 (1.0-2.8) Lipase 108 (23-300) U/L Blood Type A Positive Antibody Screen Negative Crossmatch See Detail Imaging Data CT scan - abdomen/pelvis: Radiologist's Impression: PROCEDURE: CT ANGIO ABD/PEL GI BLEED INDICATIONS: Dizziness, anemia TECHNIQUE: Non-contrast 3 mm thick sections acquired from the diaphragm to the symphysis. After the administration of intravenous contrast, 2.5 mm thick sections acquired from the diaphragm to the symphysis during the arterial and venous phases. 10 mm maximum intensity projection (MIP) reformats were acquired of the arterial phase images. For radiation dose reduction, the following was used: automated exposure control. COMPARISON: None. FINDINGS: Image Quality: Diagnostic. Abdominal aorta: No aortic aneurysm or evidence of acute aortic syndrome. Mesenteric arteries: Patent without hemodynamically significant stenosis. Renal arteries: Patent without hemodynamically significant stenosis. OTHER: Lower Chest: No significant findings. Liver: No solid mass. Gallbladder: Gallbladder neck stone. Gallbladder is not abnormally dilated. No gallbladder wall thickening. Biliary ducts: No biliary dilation. Pancreas: No ductal dilation. Spleen: Size is within normal limits. Adrenal Glands: No adrenal nodules. Kidneys and Ureters: No hydronephrosis. No solid mass. No complex renal cystic lesion which requires follow up. Stomach and Bowel: Normal colonic caliber, without significant wall thickening. Peritoneum: No abnormal intraperitoneal fluid. No free air. Ventral Wall: No hernia. Abdominal Nodes: No retroperitoneal or mesenteric adenopathy by size criteria. Vessels: Inferior vena cava is normal in size. PELVIS: Pelvic Organs: Uterus is surgically absent. No adnexal masses.. Bladder: Unremarkable. Pelvic Nodes: No enlarged lymph nodes. Miscellaneous: No inguinal hernias are seen. Bones: No aggressive osseous abnormality lumbar degenerative change. Remote lower lumbar posterior decompression and posterior lateral richard and pedicle screw fixation which is present from L2 through S1. IMPRESSION: 1. No acute hemorrhage occurred during this examination. 2. No acute process noted. 3. Cholelithiasis. 4. Remote hysterectomy. Dictated by: Hamlet Abreu M.D. on 11/17/2024 at 15:13 Chest x-ray: Radiologist's Impression: PROCEDURE: XR CHEST 1V INDICATIONS: Chest Pain TECHNIQUE: One view of the chest was acquired. COMPARISON: [facility], CR, XR CHEST 1V, 10/24/2024, 19:54. FINDINGS: Surgical changes and devices: Partial right pulmonary resection clips, as before. Lungs and pleura: Lungs are clear. No pleural effusions or pneumothorax. Mediastinum: Mediastinal contours appear normal. Heart size is normal. Bones and chest wall: No suspicious bony lesions. Overlying soft tissues appear unremarkable. IMPRESSION: No acute cardiopulmonary abnormality is seen. Dictated by: Hamlet Abreu M.D. on 11/17/2024 at 11:27 ECG Data Attestation: I personally reviewed and interpreted this ECG as follows: Prior ECG tracings: available for review Interpretation: Normal sinus rhythm rate 69 AL interval 160 QRS [address] changes no T- wave inversions similar to previous EKGs MDM Narrative Medical decision making narrative: MDM CC: Dizziness Complicating co-morbidities: Alzheimer's Corroborating data: [ ] Data collected from: patient, EMS Medical records reviewed: Previous ED visits previous admission Differential considered: Dehydration electrolyte abnormality arrhythmia anemia Exam documented above, pertinent findings include: Slightly pale awake alert 84 year female pleasantly confused moving all extremities he is adamant soft nontender rectal exam negative for gross hematochezia hemorrhoids and any stool at all Lab Test results independently reviewed as above. Pertinent findings: Hemoglobin 7.5 hematocrit 22.7, this has been a slow decrease over the last couple of months 10/24/2024 it was 8.0/23.9 in in September 2024 10.8/32.0 Chemistry panel mild hyponatremia sodium 132 potassium 3.8 chloride 96 carbon dioxide 26 BUN 19 creatinine 1.26 sleep BUN was 61 with a creatinine of 1.5 in October Lactate 2.3 with repeat 1.1 BNP at 5800 troponin 0.022 Independently reviewed EKG as above No ischemia Imaging studies independently reviewed: Chest x-ray no acute cardiopulmonary process CT abdomen pelvis no active extravasation or hemorrhage Consultations: Dr. Santana hospitalist accepts patient Treatments: Protonix, 1 PRBC Re-evaluations: Patient remains hemodynamically stable awake alert no rectal bleeding in the ED Discussion: Patient 84-year-old female who has constipation has been reports black tarry bowel movements last couple of weeks off and on. Reports some straining and near syncopal episode today. She was found to be anemic. She was had a slow decline in her hemoglobin over the last couple months. No active bleeding no stool on rectal exam. CT was negative for active bleeding or abnormality. Discussion with has been at bedside about goals of care and admission. Agrees with conservative management transfuse as needed would avoid aggressive interventions at this time. Critical Care Time Critical Care Time Critical Care Time: Yes Total Critical Care Time: 31 Attestation: The high probability of a clinically significant, sudden or life threatening deterioration of the gastrointestinal system(s) required my full and direct attention, intervention and personal management. The aggregate critical care time was 31 minutes. This time is in addition to time spent performing reported procedures but includes the following: [x] Data Review and interpretation [x] Patient assessment and monitoring of vital signs [x] Documentation [x] Medication orders and management Discharge Plan Departure Patient Disposition: Admitted as Observation Clinical Impression: Anemia, GI (gastrointestinal bleed) Admit Date/Time: 11/17/24 17:17 Admit Provider: Rd Santana
[2024-11-17 12:47] LABS: Reflexed Lactate in 2 Hours Y
--- NOTE | 2024-11-17 12:54 | DI.CT.S_ITS ---
PROCEDURE: CT ANGIO ABD/PEL GI BLEED INDICATIONS: Dizziness, anemia TECHNIQUE: Non-contrast 3 mm thick sections acquired from the diaphragm to the symphysis. After the administration of intravenous contrast, 2.5 mm thick sections acquired from the diaphragm to the symphysis during the arterial and venous phases. 10 mm maximum intensity projection (MIP) reformats were acquired of the arterial phase images. For radiation dose reduction, the following was used: automated exposure control. COMPARISON: None. FINDINGS: Image Quality: Diagnostic. Abdominal aorta: No aortic aneurysm or evidence of acute aortic syndrome. Mesenteric arteries: Patent without hemodynamically significant stenosis. Renal arteries: Patent without hemodynamically significant stenosis. OTHER: Lower Chest: No significant findings. Liver: No solid mass. Gallbladder: Gallbladder neck stone. Gallbladder is not abnormally dilated. No gallbladder wall thickening. Biliary ducts: No biliary dilation. Pancreas: No ductal dilation. Spleen: Size is within normal limits. Adrenal Glands: No adrenal nodules. Kidneys and Ureters: No hydronephrosis. No solid mass. No complex renal cystic lesion which requires follow up. Stomach and Bowel: Normal colonic caliber, without significant wall thickening. Peritoneum: No abnormal intraperitoneal fluid. No free air. Ventral Wall: No hernia. Abdominal Nodes: No retroperitoneal or mesenteric adenopathy by size criteria. Vessels: Inferior vena cava is normal in size. PELVIS: Pelvic Organs: Uterus is surgically absent. No adnexal masses.. Bladder: Unremarkable. Pelvic Nodes: No enlarged lymph nodes. Miscellaneous: No inguinal hernias are seen. Bones: No aggressive osseous abnormality lumbar degenerative change. Remote lower lumbar posterior decompression and posterior lateral richard and pedicle screw fixation which is present from L2 through S1. IMPRESSION: 1. No acute hemorrhage occurred during this examination. 2. No acute process noted. 3. Cholelithiasis. 4. Remote hysterectomy. Dictated by: Hamlet Abreu M.D. on 11/17/2024 at 15:13 Approved by: Hamlet Abreu M.D. on 11/17/2024 at 15:25
[2024-11-17 13:15] LABS: Lactate 2HR (Lactic Acid Rflx) 1.1 mmol/L (0.7-2.1)
[2024-11-17] MEDS: PANTOPRAZOLE 40 MG VIAL 80 MG IV (13:54)
[2024-11-17 14:21] LABS: Hematocrit 22.5 % (36-46); Hemoglobin 7.4 g/dL (12.0-16.0)
--- NOTE | 2024-11-17 18:04 | PM.HP.1 ---
History of Present Illness History of Present Illness Date Patient Seen: 11/17/24 Chief complaint: Near syncope acute blood loss symptomatic anemia Narrative: Chief complaint: Near syncope while sitting on the toilet with recent history of melanotic stools recurrent episodic constipation with acute blood loss anemia History of present illness: 84-year-old female approximately 4 days ago at severe constipation but was digitally disimpacted by her and herself noted to have black tarry melanotic stool feeling dizzy and lightheaded this morning came to the emergency room for evaluation. The periods of constipation are characterized by severe abdominal cramping and pain with relief after digital disimpaction. Patient has not had any nausea vomiting hematemesis or bright red blood per rectum Patient was taking Aleve and meloxicam Patient was evaluated in the emergency room if sound to have a drop in hemoglobin from 10.4-7.5 over the past couple of months. Findings emergency room significant for anemia as above there was no stool in the rectal vault and there was no detected hemoccult on digital exam by the emergency room physician CTA of the abdomen did not show acute hemorrhage or acute process Patient was referred for admission to the hospitalist service. Goal of care was discussed with the who requested that patient be treated conservatively with transfusion for symptomatic anemia empiric treatment with PPI and Carafate and laxative but no diagnostic or interventional measures. Patient was admitted to the hospitalist service for evaluation monitoring hemoglobin and anemia workup, short of invasive diagnostic procedures. Review of systems: No unusual weight gain weight loss loss consciousness than mentioned per HPI No sinus congestion sore throat or difficulty swallowing No cough No palpitations shortness of breath No urinary symptoms No paresthesia paresis or change in level of cognition Physical exam: Pale elderly female very pleasant oriented to situation HEENT unremarkable except lips and eyelids are pale Neck, carotid bruits Heart rate and rhythm regular no murmurs appreciated lungs clear Abdomen is soft nontender bowel sounds present Extremities no cyanosis clubbing edema neuro is nonfocal For objective laboratory and imaging studies please see the bottom of the note: Assessment and plan: Acute blood loss anemia with a drop in hemoglobin from 2 months ago from template 4-7.5 with a history of melena and intermittent constipation with abdominal discomfort Transfuse 1 unit packed red blood cells and monitor hemoglobin after transfusion in the morning IV PPI therapy and oral sucralfate Defer referral to surgery for endoscopic or invasive evaluation per request Avoid NSAIDs (patient was on meloxicam and Aleve) DVT prophylaxis with SCDs only Recurring cyclic constipation: Discussed with the this could represent intermittent bleeding with melena or other etiology after discussion does not want to pursue invasive evaluation. Empiric lactulose DVT prophylaxis with SCDs only due to bleeding Code status: Do not resuscitate Time-based coding 55 minutes were spent with patient and on the chart (including review of chart, obtaining history, exam, reviewing outside data, placing orders, documenting exam and treatment plan, and counseling patient). [facility] Medical History Hammertoe of second toe of right foot Slow transit constipation Fecal incontinence Gait instability Do not resuscitate Recurrent UTI Mixed hyperlipidemia Generalized anxiety disorder Alzheimer's dementia Osteoarthritis involving multiple joints on both sides of body Chronic, continuous use of opioids Chronic lumbosacral pain Scoliosis (and kyphoscoliosis), idiopathic Failed spinal cord stimulator (~2011) Snoring Obstructive sleep apnea syndrome Nocturnal hypoxemia Central sleep apnea (Unknown) Chronic pain Surgical History History of lumbar spinal fusion (~2007) Family History Father Alcohol abuse Mother Dementia Social History household members: spouse Smoking Status: Never smoker alcohol intake: current Meds Home Medications and Allergies Home Medications Medication Instructions Recorded Confirmed Type multivitamin 1 cap PO DAILY 08/21/18 11/12/24 History acetaminophen 500 mg tablet 500 mg PO Q6H PRN Pain (Scale 10/28/21 11/12/24 History (Tylenol Extra Strength) Score 4-6) zinc sulfate 50 mg zinc (220 mg) 50 mg PO DAILY 07/19/22 11/12/24 History tablet cholecalciferol (vitamin D3) 1 tab PO DAILY 04/12/23 11/12/24 History meloxicam 15 mg tablet 15 mg PO DAILY #90 tabs 10/21/24 11/12/24 Rx duloxetine 30 mg capsule,delayed 30 mg PO DAILY #90 caps 10/27/24 11/12/24 Rx release Allergies Allergy/AdvReac Type Severity Reaction Status Date / Time Sulfa (Sulfonamide Allergy Unknown RASH Verified 11/12/24 14:16 Antibiotics) [SULFA (SULFONAMIDE ANTIBIOTICS)] Exam Vital Signs (past 8 hours): - 11/17/24 10:50 11/17/24 10:51 11/17/24 10:53 Temperature 98.6 F Pulse Rate 70 74 Respiratory Rate 16 Blood Pressure 111/62 111/62 Pulse Oximetry 92 Oxygen Delivery Method Room Air 11/17/24 11:00 11/17/24 11:00 11/17/24 11:07 Temperature Pulse Rate 63 62 Respiratory Rate Blood Pressure 114/69 Pulse Oximetry 93 Oxygen Delivery Method Room Air 11/17/24 11:07 11/17/24 11:08 11/17/24 11:08 Temperature Pulse Rate 63 Respiratory Rate Blood Pressure 180/75 H 167/79 H Pulse Oximetry 100 Oxygen Delivery Method 11/17/24 11:30 11/17/24 11:30 11/17/24 12:00 Temperature Pulse Rate 69 80 Respiratory Rate Blood Pressure 167/72 H Pulse Oximetry 93 87 L Oxygen Delivery Method 11/17/24 12:01 11/17/24 12:01 11/17/24 12:30 Temperature Pulse Rate 69 65 Respiratory Rate Blood Pressure 193/90 H Pulse Oximetry 92 95 Oxygen Delivery Method 11/17/24 12:31 11/17/24 12:31 11/17/24 12:50 Temperature Pulse Rate 72 74 Respiratory Rate Blood Pressure 163/77 H Pulse Oximetry 95 93 Oxygen Delivery Method 11/17/24 12:50 11/17/24 13:00 11/17/24 13:00 Temperature Pulse Rate 75 Respiratory Rate Blood Pressure 216/91 H 177/81 H Pulse Oximetry 94 Oxygen Delivery Method 11/17/24 13:22 11/17/24 13:30 11/17/24 13:44 Temperature Pulse Rate Respiratory Rate Blood Pressure 145/79 H Pulse Oximetry 95 96 Oxygen Delivery Method 11/17/24 13:44 11/17/24 13:49 11/17/24 14:00 Temperature Pulse Rate 71 Respiratory Rate 16 20 Blood Pressure 166/78 H Pulse Oximetry 92 Oxygen Delivery Method 11/17/24 14:00 11/17/24 14:30 11/17/24 14:30 Temperature Pulse Rate 78 Respiratory Rate 20 Blood Pressure 162/71 H 178/80 H Pulse Oximetry 97 Oxygen Delivery Method 11/17/24 15:00 11/17/24 15:00 11/17/24 15:30 Temperature Pulse Rate 81 99 H Respiratory Rate 23 48 H Blood Pressure 171/78 H Pulse Oximetry 95 Oxygen Delivery Method 11/17/24 15:31 11/17/24 15:31 11/17/24 16:00 Temperature Pulse Rate 93 H 86 Respiratory Rate 38 H 20 Blood Pressure 135/100 H Pulse Oximetry Oxygen Delivery Method 11/17/24 16:30 11/17/24 16:54 11/17/24 16:54 Temperature Pulse Rate 83 76 Respiratory Rate 16 20 Blood Pressure 156/90 H Pulse Oximetry 94 96 Oxygen Delivery Method 11/17/24 16:56 11/17/24 17:00 11/17/24 17:00 Temperature 98.6 F Pulse Rate 80 73 Respiratory Rate 20 20 Blood Pressure 156/90 H 174/96 H Pulse Oximetry 99 Oxygen Delivery Method 11/17/24 17:05 11/17/24 17:05 11/17/24 17:06 Temperature Pulse Rate 72 81 Respiratory Rate 19 22 Blood Pressure 135/75 Pulse Oximetry 98 99 Oxygen Delivery Method 11/17/24 17:06 11/17/24 17:07 11/17/24 17:07 Temperature Pulse Rate 82 Respiratory Rate 23 Blood Pressure 135/72 141/73 H Pulse Oximetry 100 Oxygen Delivery Method 11/17/24 17:08 11/17/24 17:08 11/17/24 17:09 Temperature Pulse Rate 82 Respiratory Rate 19 Blood Pressure 135/71 137/66 Pulse Oximetry 99 Oxygen Delivery Method 11/17/24 17:09 11/17/24 17:15 11/17/24 17:15 Temperature Pulse Rate 83 75 Respiratory Rate 19 16 Blood Pressure 129/77 Pulse Oximetry 99 93 Oxygen Delivery Method 11/17/24 17:17 11/17/24 17:30 11/17/24 17:30 Temperature 98.8 F Pulse Rate 78 80 Respiratory Rate 16 23 Blood Pressure 129/77 134/79 Pulse Oximetry 100 Oxygen Delivery Method 11/17/24 17:45 11/17/24 17:45 Temperature Pulse Rate 75 Respiratory Rate 16 Blood Pressure 128/73 Pulse Oximetry 100 Oxygen Delivery Method Oxygen Delivery Method Room Air Objective Labs 11/17/24 13:59 11/17/24 11:06 Labs: Laboratory Results - last 24 hr 11/17/24 11/17/24 11/17/24 11:06 12:49 13:59 WBC 7.4 RBC 2.53 L Hgb 7.5 L 7.4 L Hct 22.7 L 22.5 L MCV 89.7 MCH 29.5 MCHC 32.9 RDW 15.2 H Plt Count 417 H Neut % (Auto) 79.2 H Lymph % (Auto) 10.2 L [place] % (Auto) 7.4 Eos % (Auto) 2.4 Baso % (Auto) 0.8 Neut # (Auto) 5900 Lymph # (Auto) 800 L [place] # (Auto) 500 Eos # (Auto) 200 Baso # (Auto) 100 PT 11.1 INR 1.0 APTT 28 Sodium 132 L Potassium 3.8 Chloride 96 L Carbon Dioxide 26 BUN 19 H Creatinine 1.26 H Estimated GFR 42 L BUN/Creatinine Ratio 15.1 Glucose 127 H Lactate 2.3 H 1.1 Calcium 9.1 Magnesium 2.1 Total Bilirubin 0.6 AST 27 ALT 18 Alkaline Phosphatase 71 Total Creatine Kinase 40 Troponin I 0.022 NT-Pro-B Natriuret Pep 5800 H Total Protein 7.5 Albumin 4.1 Globulin 3.4 Albumin/Globulin Ratio 1.2 Lipase 108 Blood Type A Positive Antibody Screen Negative Crossmatch See Detail Quality MIPS - Admit I confirm the patient?s Advance Care Plan is present, Code status is documented, Surrogate decision maker is in patient?s record [If Yes, STOP here]: Yes
[2024-11-17] MEDS: DEXTROSE 5%-0.9% NS 1,000 ML 100 ML IV (19:01)
[2024-11-17] MEDS: SUCRALFATE 1 GM/10 ML ORAL SUSP PO (19:01)
[2024-11-17] MEDS: LACTULOSE 20 GM/30 ML SOLUTION PO (21:28)
[2024-11-17] MEDS: PANTOPRAZOLE 40 MG VIAL 20 MG IV (21:28)
[2024-11-17] MEDS: SODIUM CHLORIDE 0.9% FLUSH 10 ML IV (21:29)
[2024-11-18] VITALS: BP 112/77; PULSE 79; RESP 18; TEMP 36.3; O2SAT 98
[2024-11-18] MEDS: SUCRALFATE 1 GM/10 ML ORAL SUSP PO ×5 (01:13→23:45)
[2024-11-18 04:00] VITALS: BP 158/84; PULSE 79; RESP 18; TEMP 36.4; O2SAT 98
[2024-11-18] MEDS: DEXTROSE 5%-0.9% NS 1,000 ML 100 ML IV (05:09)
[2024-11-18] MEDS: SODIUM CHLORIDE 0.9% FLUSH 10 ML IV ×2 (09:45→20:51)
[2024-11-18] MEDS: PANTOPRAZOLE 40 MG VIAL 20 MG IV ×2 (09:45→20:51)
[2024-11-18] MEDS: DULOXETINE 30 MG CAPSULE PO (09:45)
[2024-11-18] MEDS: LACTULOSE 20 GM/30 ML SOLUTION PO ×2 (09:45→20:51)
[2024-11-18 10:00] VITALS: BP 103/61; PULSE 76; RESP 18; TEMP 36.4; O2SAT 97
[2024-11-18 12:17] LABS: Add Manual Diff / Slide Review NO; Basophils Absolute Auto 0 /uL (0-100); Basophils Percent Auto 0.7 % (0-2); Eosinophils Absolute Auto 100 /uL (0-450); Eosinophils Percent Auto 1.6 % (2-4); Hematocrit 23.5 % (36-46); Hemoglobin 8.1 g/dL (12.0-16.0); Lymphocytes Absolute Auto 800 /uL (1100-4500); Lymphocytes Percent Auto 12.6 % (25-40); Mean Corpuscular HGB Conc 34.6 % (30-36); Mean Corpuscular Hemoglobin 30.3 PG (26-34); Mean Corpuscular Volume 87.7 fL (80-100); Monocytes Absolute Auto 600 /uL (0-900); Monocytes Percent Auto 9.7 % (3-14); Neutrophils Absolute Auto 5000 /uL (1500-7000); Neutrophils Percent Auto 75.4 % (50-75); Platelet Count 317 X10^3/uL (150-400); Red Blood Cell Count 2.68 X10^6/uL (4.0-5.2); Red Cell Distribution Width 15.2 % (11.6-14.8); White Blood Cell Count 6.6 X10^3/uL (4.5-11.0)
[2024-11-18 12:44] LABS: BUN Creatinine Ratio 13.1 (6-22); Blood Urea Nitrogen 13 mg/dL (7-17); Calcium 8.3 mg/dL (8.4-10.2); Carbon Dioxide 24 mmol/L (22-32); Chloride 99 mmol/L (98-107); Estimated Glomerular Filt Rate 56 mL/min (>60); Glucose 84 mg/dL (70-99); HEMOLYSIS < 15 (0-50); Sodium 130 mmol/L (137-145)
--- NOTE | 2024-11-18 13:19 | PC.NURSE ---
Rec'd report from Harvey VALLECILLO. Pt alert confused (pleasantly). attentive at bedside. Pt offers no overt c/o.
[2024-11-18 14:00] VITALS: BP 124/79; PULSE 77; RESP 16; TEMP 36.6; O2SAT 96
--- NOTE | 2024-11-18 15:43 | CM.DANOTE ---
Initial DCP Assessment Visit Note Reviewed EMR and team rounds for status updates. Met at bedside with spouse and pt, pt was found to be alert, not oriented, but smiling and seemingly happy, she did not participate in assessment questions, and defers to her spouse. Pt lives modified independently in her own home with spouse and hired caregivers. Spouse will transport her home once she's medically cleared for home d/c. Spouse declines the need for Home Health or any other d/c OP resources at this time. Pt will likely either d/c home later this evening, or tomorrow am. Payor: [facility] PCP: Dr. Marie Pt is a 84 year-old F with a hx of advanced Alzheimer's disease and frequent falls, she presented to the ED via EMS with family c/o pt's dizziness and lightheadedness. Spouse reports that she's also had some recent black, tarry stools off and on, but also has chronic issues with constipation. They have hired caregivers in place 5-days per week, and spouse cares for her alone the rest of the time. CT was negative for active bleeding or abnormalities, however pt was found to be acutely anemic. Plan was mad to admit to OBS, and was given 1-unit of packed red blood cells. Plan was to monitor her for H&H to stabilize in order to be medically cleared for home d/c. DCP will continue to monitor and assist with any further evolving d/c needs. Discharge Planning/Care Management CM Discharge Assessment Start: 11/17/24 17:45 Freq: Status: Active Protocol: Document 11/18/24 15:41 DPL (Rec: 11/18/24 15:43 DPL [id number]) Discharge Planning Assessment Assigned [employer] BETSEY Hicks Advance Directives? Yes: Pol Advance Directives on File No History Provided By Family Member,Medical Record Prior Living Arrangements House Household Members spouse Type of transporation used prior to Relies on Others admit Independent with ADL's No: modified independent with a walker and cg/family assistance Is patient alert and oriented? No: alert to self/spouse Needs Assistance With Bathing,Grooming,Meal Prep, Toileting,Managing Medications ,Home Chores / Shopping Caregiver for Another No DME Already Rented / Owned Bath Bench,Elevated Toilet Seat,FWW / Walker Comment No identified home d/c needs at this time. Spouse declined the need for Home Health at d/ c. Barriers to Discharge No Transportation Arrangement Spouse Referrals Initiated None needed Whiteboard Updated in Patient Room with Yes name and ext. # of [employer] Review Status In Process Please Provide Date Initial DC 11/18/24 Assessment Was Performed
[2024-11-18 18:00] VITALS: BP 128/83; PULSE 87; RESP 15; TEMP 36.1; O2SAT 100
--- NOTE | 2024-11-18 19:16 | PM.PN.1 ---
Subjective Subjective Interval history: 84 F with PMH of dementia, constipation who was admitted with GI bleeding. reports taking aleve recently, declines intervention with endoscopy. Her h/h did not quite respond as anticipated to her transfusion today. Patient denies complaints but is confused but at baseline. Hg 8.1 this afternoon. Exam Vital Signs (past 8 hours): - 11/18/24 14:00 11/18/24 18:00 Temperature 97.8 F 97 F L Pulse Rate 77 87 Respiratory Rate 16 15 Blood Pressure 124/79 128/83 Pulse Oximetry 96 100 Oxygen Delivery Method Room Air Oxygen Flow Rate 0 Narrative Exam Narrative: Gen: Elderly female, pleasantly confused, no distress CV: RRR no m/r/g Pulm: CTA b/l Abd: S NT ND Ext: No edema. Objective Labs 11/18/24 12:00 11/18/24 12:00 Labs: Laboratory Results - last 24 hr 11/18/24 12:00 WBC 6.6 RBC 2.68 L Hgb 8.1 L Hct 23.5 L MCV 87.7 MCH 30.3 MCHC 34.6 RDW 15.2 H Plt Count 317 Neut % (Auto) 75.4 H Lymph % (Auto) 12.6 L [place] % (Auto) 9.7 Eos % (Auto) 1.6 L Baso % (Auto) 0.7 Neut # (Auto) 5000 Lymph # (Auto) 800 L [place] # (Auto) 600 Eos # (Auto) 100 Baso # (Auto) 0 Sodium 130 L Potassium 4.0 Chloride 99 Carbon Dioxide 24 BUN 13 Creatinine 0.99 Estimated GFR 56 L BUN/Creatinine Ratio 13.1 Glucose 84 Calcium 8.3 L [facility] Medical History Hammertoe of second toe of right foot Slow transit constipation Fecal incontinence Gait instability Do not resuscitate Recurrent UTI Mixed hyperlipidemia Generalized anxiety disorder Alzheimer's dementia Osteoarthritis involving multiple joints on both sides of body Chronic, continuous use of opioids Chronic lumbosacral pain Scoliosis (and kyphoscoliosis), idiopathic Failed spinal cord stimulator (~2011) Snoring Obstructive sleep apnea syndrome Nocturnal hypoxemia Central sleep apnea (Unknown) Chronic pain Surgical History History of lumbar spinal fusion (~2007) Family History Father Alcohol abuse Mother Dementia Social History household members: spouse Smoking Status: Former smoker alcohol intake: current Assessment & Plan Assessment & Plan narrative: Acute blood loss anemia due to suspected peptic ulcer disease. - EGD deferred per spouse at this time - continue PPI IV BID - continue to follow h/h, Hg 7.4 only improved to 8.1 after transfusion - hemodynamically stable currently. Recurring cyclic constipation: - okay to start aggressive laxative therapy now as bleeding is suspected to have stabilized - was started on lactulose, no BM today. Add senna, miralax, and bisacodyl prn. Code: DNR, surrogate is patient's spouse DVT: SCDs with GI bleeding Dispo: patient admitted under observation status, anticipate discharge 1-2 days, likely tomorrow if h/h stable. Additional history obtained via discussions with the ER provider. These discussions contributed to the creation of the above assessment and plan. I have reviewed patient's presenting documentation, labs, and imaging personally. Time-Based Coding :: [TOTAL MINUTES] spent with patient and on the chart (including review of chart, obtaining history, exam, reviewing outside data, placing orders, documenting exam and treatment plan, and counseling patient) on [DATE]. Quality VTE Deep Vein Thrombosis/Pulmonary Embolism Present on Admission: No
[2024-11-18 20:00] VITALS: BP 140/99; PULSE 75; RESP 18; TEMP 36.6; O2SAT 98
[2024-11-18] MEDS: SENNOSIDES 8.6 MG TABLET 17.2 MG PO (20:51)
[2024-11-19] VITALS: BP 179/98; PULSE 81; RESP 16; TEMP 36.5; O2SAT 99
[2024-11-19 04:00] VITALS: BP 171/99; PULSE 83; RESP 20; TEMP 36.8; O2SAT 98
--- NOTE | 2024-11-19 04:37 | PC.WOUNDPHOT ---
TAKEN BY Chula JACINTO RN
[2024-11-19 05:38] LABS: Add Manual Diff / Slide Review NO; Basophils Absolute Auto 100 /uL (0-100); Basophils Percent Auto 0.8 % (0-2); Eosinophils Absolute Auto 200 /uL (0-450); Eosinophils Percent Auto 1.8 % (2-4); Hematocrit 25.6 % (36-46); Hemoglobin 8.7 g/dL (12.0-16.0); Lymphocytes Absolute Auto 900 /uL (1100-4500); Lymphocytes Percent Auto 9.7 % (25-40); Mean Corpuscular Hemoglobin 29.7 PG (26-34); Mean Corpuscular Volume 87.5 fL (80-100); Monocytes Absolute Auto 800 /uL (0-900); Monocytes Percent Auto 8.8 % (3-14); Neutrophils Absolute Auto 7000 /uL (1500-7000); Neutrophils Percent Auto 78.9 % (50-75); Platelet Count 352 X10^3/uL (150-400); Red Blood Cell Count 2.93 X10^6/uL (4.0-5.2); Red Cell Distribution Width 15.1 % (11.6-14.8); White Blood Cell Count 8.9 X10^3/uL (4.5-11.0)
[2024-11-19 05:57] LABS: BUN Creatinine Ratio 13.7 (6-22); Blood Urea Nitrogen 14 mg/dL (7-17); Calcium 8.9 mg/dL (8.4-10.2); Carbon Dioxide 27 mmol/L (22-32); Chloride 98 mmol/L (98-107); Estimated Glomerular Filt Rate 54 mL/min (>60); Glucose 94 mg/dL (70-99); HEMOLYSIS < 15 (0-50); Potassium 3.4 mmol/L (3.4-5.1); Sodium 133 mmol/L (137-145)
[2024-11-19] MEDS: SUCRALFATE 1 GM/10 ML ORAL SUSP PO ×2 (06:40→11:26)
[2024-11-19 08:00] VITALS: BP 125/103; PULSE 86; RESP 16; TEMP 36.6; O2SAT 95
[2024-11-19] MEDS: ACETAMINOPHEN 325 MG TABLET 650 MG PO (08:52)
[2024-11-19] MEDS: LACTULOSE 20 GM/30 ML SOLUTION PO (08:52)
[2024-11-19] MEDS: DULOXETINE 30 MG CAPSULE PO (08:53)
[2024-11-19] MEDS: SODIUM CHLORIDE 0.9% FLUSH 10 ML IV (09:01)
[2024-11-19] MEDS: polyethylene glycoL 3350 17 GM POWD.PACK PO (09:01)
[2024-11-19] MEDS: POTASSIUM CHLORIDE 20 MEQ TAB 40 MEQ PO (11:26)
[2024-11-19 12:00] VITALS: BP 147/79; PULSE 86; RESP 16; TEMP 37.1; O2SAT 98
--- NOTE | 2024-11-19 14:49 | P.DS_ITS ---
History of Present Illness History of Present Illness Date Patient Seen: 11/19/24 Chief complaint: Near syncope acute blood loss symptomatic anemia Narrative: Per admitting provider, Chief complaint: Near syncope while sitting on the toilet with recent history of melanotic stools recurrent episodic constipation with acute blood loss anemia History of present illness: 84-year-old female approximately 4 days ago at severe constipation but was digitally disimpacted by her and herself noted to have black tarry melanotic stool feeling dizzy and lightheaded this morning came to the emergency room for evaluation. The periods of constipation are characterized by severe abdominal cramping and pain with relief after digital disimpaction. Patient has not had any nausea vomiting hematemesis or bright red blood per rectum Patient was taking Aleve and meloxicam Patient was evaluated in the emergency room if sound to have a drop in hemoglobin from 10.4-7.5 over the past couple of months. Findings emergency room significant for anemia as above there was no stool in the rectal vault and there was no detected hemoccult on digital exam by the emergency room physician CTA of the abdomen did not show acute hemorrhage or acute process Patient was referred for admission to the hospitalist service. Goal of care was discussed with the who requested that patient be treated conservatively with transfusion for symptomatic anemia empiric treatment with PPI and Carafate and laxative but no diagnostic or interventional measures. Patient was admitted to the hospitalist service for evaluation monitoring hemoglobin and anemia workup, short of invasive diagnostic procedures. Discharge Providers Provider Date of admission: 11/17/24 17:17 Discharge Date: 11/19/24 Primary care physician: Abilio Marie MD Discharge provider: Clint Francois DO Summary Hospital Course Discharge Diagnosis: Acute blood loss anemia due to suspected peptic ulcer disease. Recurring cyclic constipation: Chronic cognitive impairment. Hospital Course: This is an 84-year-old female with past medical history of dementia and recurring constipation who was admitted for an acute blood loss anemia requiring transfusion for a hemoglobin of 7.4 in the emergency room. She presented with dark stools, but had been taking a leave in addition to meloxicam for recurring abdominal pain. Patient's spouse elected to not pursue endoscopy at this time and instead proceed with medical management with IV ppi. She had no further dark stools over the course of her stay, she but she was started on aggressive laxative therapy due to lack of bowel movements which will continue on discharge. Her H&H improved slightly after transfusion from 7.4 hemoglobin to 8.1, the following morning it an increase to 8.9 and the patient was doing well. Discussed with the patient's spouse and she was discharged home at that time. She will continue pantoprazole 40 mg twice a day for the next 2 weeks, and then likely 40 mg daily following this. She was also prescribed sucralfate to assist with presumed healing of peptic ulcer disease due to NSAID use. Spouse was counseled on appropriate NSAID use and recommended avoiding these. For now continue Tylenol at home. Time Spent with Patient Time spent: Greater than 30 minutes Exam Vital Signs (past 8 hours): - 11/19/24 08:00 11/19/24 12:00 Temperature 97.8 F 98.8 F Pulse Rate 86 86 Respiratory Rate 16 16 Blood Pressure 125/103 H 147/79 H Pulse Oximetry 95 98 Oxygen Flow Rate 0 0 Oxygen Delivery Method Room Air Oxygen Flow Rate 0 Narrative Exam Narrative: Gen: Elderly female, pleasantly confused, no distress CV: RRR no m/r/g Pulm: CTA b/l Abd: S NT ND Ext: No edema. Objective Labs 11/19/24 05:25 11/19/24 05:25 Labs: Laboratory Results - last 24 hr 11/19/24 05:25 WBC 8.9 RBC 2.93 L Hgb 8.7 L Hct 25.6 L MCV 87.5 MCH 29.7 MCHC 34.0 RDW 15.1 H Plt Count 352 Neut % (Auto) 78.9 H Lymph % (Auto) 9.7 L [place] % (Auto) 8.8 Eos % (Auto) 1.8 L Baso % (Auto) 0.8 Neut # (Auto) 7000 Lymph # (Auto) 900 L [place] # (Auto) 800 Eos # (Auto) 200 Baso # (Auto) 100 Sodium 133 L Potassium 3.4 Chloride 98 Carbon Dioxide 27 BUN 14 Creatinine 1.02 Estimated GFR 54 L BUN/Creatinine Ratio 13.7 Glucose 94 Calcium 8.9 PFSH Medical History Hammertoe of second toe of right foot Slow transit constipation Fecal incontinence Gait instability Do not resuscitate Recurrent UTI Mixed hyperlipidemia Generalized anxiety disorder Alzheimer's dementia Osteoarthritis involving multiple joints on both sides of body Chronic, continuous use of opioids Chronic lumbosacral pain Scoliosis (and kyphoscoliosis), idiopathic Failed spinal cord stimulator (~2011) Snoring Obstructive sleep apnea syndrome Nocturnal hypoxemia Central sleep apnea (Unknown) Chronic pain Surgical History History of lumbar spinal fusion (~2007) Family History Father Alcohol abuse Mother Dementia Social History household members: spouse Smoking Status: Former smoker alcohol intake: current Discharge Plan Discharge Plan Patient Disposition: Home Provider Discharge Comment: You were admitted to the hospital with GI bleeding, improved after transfusion. Stop meloxicam. Continue pantoprazole twice a day along with sucralfate. For constipation continue OTC laxative therapies this can be miralax once a day, bisacodyl 5 mg BID, and Senna 17.2 mg at bedtime. Follow up with Dr. Marie after discharge. Discharge orders & Medications Prescriptions: New sucralfate 100 mg/mL Suspension 1 g PO Q6HR 14 Days Qty: 560 0RF pantoprazole 40 mg tablet,delayed release (DR/EC) 40 mg PO BID 14 Days Qty: 28 0RF Continued acetaminophen [Tylenol Extra Strength] 500 mg tablet 500 mg PO Q6H MDD 4000 PRN (Reason: Pain (Scale Score 4-6)) Patient Comments: 1 tablet at breakfast may take extra at lunch, and dinner. duloxetine 30 mg capsule,delayed release(DR/EC) 30 mg PO DAILY Discontinued meloxicam 15 mg tablet 15 mg PO DAILY Follow up/Referrals: Abilio Marie MD [Primary Care Provider] - Diet/Activity/Treatments Diet: Diet as Tolerated and Regular Activity: No restrictions Visit Report/Discharge Packet Instructions: Gastrointestinal Bleeding Stand Alone Forms: Patient Portal/API, Stroke Signs & Symptoms Discharge Data Primary Care Provider: Abilio Marie V Attending Provider: Rd Santana Admit Date/Time: 11/17/24 17:17 Quality VTE Deep Vein Thrombosis/Pulmonary Embolism Present on Admission: No
== END 2024-11-19 15:27 | disposition home or self-care (01) ==
LOC: ED 15:26 → AC 17:17
PROVIDERS: Internal Medicine; Admitting Provider Internal Medicine; Emergency Provider Emergency Medicine; Family Provider Internal Medicine; PCP Internal Medicine; Referring Provider Emergency Medicine; Visit Provider Internal Medicine
DX: D62 Acute posthemorrhagic anemia (principal); R42 Dizziness and giddiness; K92.1 Melena; K59.00 Constipation, unspecified; G30.9 Alzheimer's disease, unspecified; F02.80 Dementia in other diseases classified elsewhere, unspecified severity, without behavioral disturbance, psychotic disturbance, mood disturbance, and anxiety; Z91.81 History of falling; Z66 Do not resuscitate
CPT/HCPCS: 36415; 36430; 71045; 74174; 80048; 80053; 82550; 83605; 83690; 83735; 83880; 84484; 85014; 85018; 85025; 85610; 85730; 86850; 86900; 86901; 93005; 93010; 96361; 96374; 99285; 99291; G0378; P9016; J2470; Q9967

== ENCOUNTER → 2024-12-22 16:58 | Outpatient (CLI) | payer MEDICARE, SELFPAY ==
[2024-11-17 17:45] VITALS: BMI 17.4
[2024-12-22 17:24] LABS: Hemoglobin 9.3 g/dL (12.0-16.0); Mean Corpuscular HGB Conc 33.2 % (30-36); Mean Corpuscular Hemoglobin 28.3 PG (26-34); Mean Corpuscular Volume 85.2 fL (80-100); Platelet Count 356 X10^3/uL (150-400); Red Blood Cell Count 3.28 X10^6/uL (4.0-5.2); Red Cell Distribution Width 15.4 % (11.6-14.8); White Blood Cell Count 5.8 X10^3/uL (4.5-11.0)
[2024-12-22 17:36] LABS: HEMOLYSIS < 15 (0-50); Iron 39 ug/dL (37-170)
[2024-12-22 17:46] LABS: Percent Iron Saturation 10 % (15-50); Total Iron Binding Capacity 403 ug/dL (265-497); Transferrin 355 mg/dL (206-381)
[2024-12-22 18:12] LABS: Ferritin 7 ng/mL (11-264)
== END ==
PROVIDERS: Family Provider Internal Medicine; PCP Internal Medicine; Referring Provider Internal Medicine; Visit Provider Internal Medicine
DX: D64.9 Anemia, unspecified (principal)
CPT/HCPCS: 36415; 82728; 83540; 83550; 85027

== ENCOUNTER → 2025-02-19 16:00 | Outpatient (CLI) | payer MEDICARE, SELFPAY ==
[2024-11-17 17:45] VITALS: BMI 17.4
[2025-02-19 17:54] LABS: Hematocrit 33.6 % (36-46); Hemoglobin 10.9 g/dL (12.0-16.0); Mean Corpuscular HGB Conc 32.4 % (30-36); Mean Corpuscular Hemoglobin 28.4 PG (26-34); Mean Corpuscular Volume 87.7 fL (80-100); Platelet Count 325 X10^3/uL (150-400)
[2025-02-19 18:19] LABS: Blood Urea Nitrogen 39 mg/dL (7-17); Calcium 9.4 mg/dL (8.4-10.2); Carbon Dioxide 28 mmol/L (22-32); Chloride 97 mmol/L (98-107); Estimated Glomerular Filt Rate 42 mL/min (>60); Glucose 74 mg/dL (70-99); HEMOLYSIS < 15 (0-50); Iron 50 ug/dL (37-170); Potassium 3.7 mmol/L (3.4-5.1); Sodium 136 mmol/L (137-145)
[2025-02-19 18:30] LABS: Percent Iron Saturation 12 % (15-50); Total Iron Binding Capacity 408 ug/dL (265-497); Transferrin 341 mg/dL (206-381)
[2025-02-19 18:55] LABS: Ferritin 7 ng/mL (11-264)
== END ==
PROVIDERS: Family Provider Internal Medicine; PCP Internal Medicine; Referring Provider Internal Medicine; Visit Provider Internal Medicine
DX: D64.9 Anemia, unspecified (principal); E78.2 Mixed hyperlipidemia
CPT/HCPCS: 36415; 80048; 82728; 83540; 83550; 85027

== ENCOUNTER → 2025-06-03 14:21 | Outpatient (CLI) | payer MEDICARE, SELFPAY ==
[2024-11-17 17:45] VITALS: BMI 17.4
[2025-06-03 15:44] LABS: Hematocrit 35.5 % (36-46); Hemoglobin 12.1 g/dL (12.0-16.0); Mean Corpuscular HGB Conc 34.0 % (30-36); Mean Corpuscular Hemoglobin 32.1 PG (26-34); Mean Corpuscular Volume 94.4 fL (80-100); Platelet Count 277 X10^3/uL (150-400)
[2025-06-03 16:06] LABS: HEMOLYSIS < 15 (0-50); Iron 27 ug/dL (37-170)
[2025-06-03 16:09] LABS: Alanine Aminotransferase 18 IU/L (<35); Albumin 4.5 g/dL (3.5-5.0); Albumin Globulin Ratio 1.3 (1.0-2.8); Alkaline Phosphatase 76 U/L (38-126); Blood Urea Nitrogen 23 mg/dL (7-17); Calcium 9.4 mg/dL (8.4-10.2); Carbon Dioxide 27 mmol/L (22-32); Chloride 98 mmol/L (98-107); Estimated Glomerular Filt Rate 44 mL/min (>60); Globulin 3.5 g/dL (1.7-4.1); Glucose 119 mg/dL (70-99); HEMOLYSIS < 15 (0-50); Potassium 3.7 mmol/L (3.4-5.1); Sodium 136 mmol/L (137-145); Total Protein 8.0 g/dL (6.3-8.2)
[2025-06-03 16:17] LABS: Percent Iron Saturation 8 % (15-50); Total Iron Binding Capacity 351 ug/dL (265-497); Transferrin 299 mg/dL (206-381)
[2025-06-03 16:45] LABS: Ferritin 25 ng/mL (11-264)
== END ==
PROVIDERS: Family Provider Internal Medicine; PCP Internal Medicine; Referring Provider Internal Medicine; Visit Provider Internal Medicine
DX: D64.9 Anemia, unspecified (principal); G47.31 Primary central sleep apnea
CPT/HCPCS: 36415; 80053; 82728; 83540; 83550; 85027

== ENCOUNTER → 2025-06-04 17:14 | Outpatient (CLI) | payer MEDICARE, SELFPAY ==
[2024-11-17 17:45] VITALS: BMI 17.4
--- NOTE | 2025-06-04 17:16 | DI.RAD.S_ITS ---
PROCEDURE: XR ANKLE RT MIN 3V INDICATIONS: Lower leg injury TECHNIQUE: 3 views of the ankle were acquired. COMPARISON: None. FINDINGS: Bones: Mildly displaced distal fibular fracture. Prominence of the medial clear space measuring 4-5 millimeters. Ankle mortise is normally aligned. No suspicious bony lesions. Soft tissues: No tibiotalar joint effusion. Achilles tendon appears normal. IMPRESSION: Mildly displaced distal fibular fracture. Prominence of the medial clear space measuring 4-5 millimeters, may represent ligamentous injury. Dictated by: Prosper Weir M.D. on 06/04/2025 at 17:49 Approved by: Prosper Weir M.D. on 06/04/2025 at 17:50
--- NOTE | 2025-06-04 17:16 | DI.RAD.S_ITS ---
PROCEDURE: XR TIBIA FUBULA RT 2V INDICATIONS: Lower leg injury TECHNIQUE: 2 views of the tibia and fibula were acquired. COMPARISON: None. FINDINGS: Bones: Mildly displaced distal fibular fracture. No suspicious bony lesions. Soft tissues: No suspicious soft tissue calcifications or masses. IMPRESSION: Mild displaced fracture of the distal fibula Dictated by: Prosper Weir M.D. on 06/04/2025 at 17:48 Approved by: Prosper Weir M.D. on 06/04/2025 at 17:49
== END ==
PROVIDERS: Family Provider Internal Medicine; PCP Internal Medicine; Referring Provider Nurse Practitioner Family; Visit Provider Nurse Practitioner Family
DX: S82.831A Other fracture of upper and lower end of right fibula, initial encounter for closed fracture (principal); X58.XXXA Exposure to other specified factors, initial encounter
CPT/HCPCS: 73590; 73610; 81001; 87077; 87086; 87186